=== PATIENT | female | born 1960 | race Caucasian/White ===

== ENCOUNTER 2016-05-29 15:17 | Emergency (ER) | payer MEDICARE, OTHER, MEDICAID ==
[2015-06-01 12:52] VITALS: BMI 22.8
[~2016-05-29 15:17] MED LIST: AMBIEN10 MG PO; ATIVAN1 MG PO; CIPRO500 MG PO; FLAGYL500 MG PO; GLUCOPHAGE500 MG PO; LISINOPRIL2.5 MG PO; METAMUCIL1042 GM PO; PROTONIX40 MG PO; PROZAC20 MG PO
== END 2016-05-29 22:45 | disposition home or self-care (01) ==
LOC: D.ER 15:17
DX: G43.909 Migraine, unspecified, not intractable, without status migrainosus (principal)

== ENCOUNTER 2016-05-31 11:55 | Emergency (ER) | payer MEDICARE, OTHER, MEDICAID ==
[2015-06-01 12:52] VITALS: BMI 22.8
== END 2016-05-31 14:00 | disposition home or self-care (01) ==
LOC: D.ER 11:55
DX: R51 Headache (principal)

== ENCOUNTER 2016-06-01 16:31 | Emergency (ER) | payer MEDICARE, OTHER, MEDICAID ==
[2015-06-01 12:52] VITALS: BMI 22.8
== END 2016-06-01 19:11 | disposition home or self-care (01) ==
LOC: D.ER 16:31
DX: R51 Headache (principal); F17.200 Nicotine dependence, unspecified, uncomplicated

== ENCOUNTER 2016-08-09 09:55 | Emergency (ER) | payer MEDICARE, OTHER, MEDICAID ==
[2015-06-01 12:52] VITALS: BMI 22.8
== END 2016-08-09 11:23 | disposition home or self-care (01) ==
LOC: D.ER 09:55
DX: G89.29 Other chronic pain (principal)

== ENCOUNTER 2016-08-11 15:51 | Emergency (ER) | payer MEDICARE, OTHER, MEDICAID ==
[2015-06-01 12:52] VITALS: BMI 22.8
== END 2016-08-11 18:32 | disposition home or self-care (01) ==
LOC: D.ER 15:51
DX: M25.562 Pain in left knee (principal); S89.92XA Unspecified injury of left lower leg, initial encounter; W01.0XXA Fall on same level from slipping, tripping and stumbling without subsequent striking against object, initial encounter; Y93.89 Activity, other specified; Y92.017 Garden or yard in single-family (private) house as the place of occurrence of the external cause; F17.200 Nicotine dependence, unspecified, uncomplicated

== ENCOUNTER 2016-10-27 16:27 | Emergency (ER) | payer MEDICARE, OTHER, MEDICAID ==
[2015-06-01 12:52] VITALS: BMI 22.8
== END 2016-10-27 18:25 | disposition home or self-care (01) ==
LOC: D.ER 16:27
DX: R51 Headache (principal); R11.10 Vomiting, unspecified; F41.9 Anxiety disorder, unspecified

== ENCOUNTER 2016-10-30 11:18 | Emergency (ER) | payer MEDICARE, OTHER, MEDICAID ==
[2015-06-01 12:52] VITALS: BMI 22.8
== END 2016-10-30 14:20 | disposition home or self-care (01) ==
LOC: D.ER 11:18
DX: M54.5 Low back pain (principal)

== ENCOUNTER 2016-11-07 21:58 | Emergency (ER) | payer MEDICARE, OTHER, MEDICAID ==
[2015-06-01 12:52] VITALS: BMI 22.8
== END 2016-11-07 23:00 | disposition home or self-care (01) ==
LOC: D.ER 21:58
DX: G43.909 Migraine, unspecified, not intractable, without status migrainosus (principal); F17.200 Nicotine dependence, unspecified, uncomplicated

== ENCOUNTER 2016-12-30 08:55 | Emergency (ER) | payer MEDICARE, OTHER, MEDICAID ==
[2015-06-01 12:52] VITALS: BMI 22.8
== END 2016-12-30 10:50 | disposition home or self-care (01) ==
LOC: D.ER 08:55
DX: R51 Headache (principal)

== ENCOUNTER 2017-01-02 02:21 | Emergency (ER) | payer MEDICARE, OTHER, MEDICAID ==
[2015-06-01 12:52] VITALS: BMI 22.8
== END 2017-01-02 03:55 | disposition home or self-care (01) ==
LOC: D.ER 02:21
DX: I10 Essential (primary) hypertension (principal); R51 Headache

== ENCOUNTER 2017-01-02 05:27 | Emergency (ER) | payer MEDICARE, OTHER, MEDICAID ==
[2015-06-01 12:52] VITALS: BMI 22.8
== END 2017-01-02 06:26 | disposition home or self-care (01) ==
LOC: D.ER 05:27
DX: G43.909 Migraine, unspecified, not intractable, without status migrainosus (principal); I10 Essential (primary) hypertension; F17.200 Nicotine dependence, unspecified, uncomplicated

== ENCOUNTER 2017-01-17 10:03 | Emergency (ER) | payer MEDICARE, OTHER, MEDICAID ==
[2015-06-01 12:52] VITALS: BMI 22.8
== END 2017-01-17 11:31 | disposition home or self-care (01) ==
LOC: D.ER 10:03
DX: S06.0X0A Concussion without loss of consciousness, initial encounter (principal); W22.03XA Walked into furniture, initial encounter; Y93.E9 Activity, other interior property and clothing maintenance; Y92.029 Unspecified place in mobile home as the place of occurrence of the external cause; F17.200 Nicotine dependence, unspecified, uncomplicated

== ENCOUNTER 2017-02-02 19:31 | Emergency (ER) | payer MEDICARE, OTHER, MEDICAID ==
[2015-06-01 12:52] VITALS: BMI 22.8
== END 2017-02-02 21:21 | disposition home or self-care (01) ==
LOC: D.ER 19:31
DX: R51 Headache (principal); I10 Essential (primary) hypertension

== ENCOUNTER → 2017-02-23 17:48 | Emergency (ER) | payer MEDICARE, OTHER, MEDICAID ==
[2015-06-01 12:52] VITALS: BMI 22.8
[2017-02-23 18:16] LABS: HEMATOCRIT 40.6 % (36.0-48.0); HEMOGLOBIN 13.3 g/dL (12-16); MCH 29.6 pg (26.0-34.0); MCHC 32.8 g/dL (31.0-37.0); MCV 90.2 fL (80.0-100.0); MEAN PLATELET VOLUME 9.3 fL (7.4-10.4); PLATELET COUNT 398 10x3/uL (130-400); RDW 13.6 % (11.5-14.5); WBC 11.7 10x3/uL (4.8-10.8)
[2017-02-23 18:31] LABS: ALBUMIN 3.6 g/dL (3.4-5.0); ALKALINE PHOSPHATASE 98 U/L (46-116); ALT (SGPT) 17 U/L (10-68); BILIRUBIN - TOTAL 0.19 mg/dL (0.2-1.3); CALC OSMOLALITY 282 mosm/kg (275-300); CALCIUM 8.8 mg/dL (8.5-10.1); CARBON DIOXIDE 26.6 mmol/L (21.0-32.0); CHLORIDE - SERUM 103 mmol/L (98-107); CREATININE - SERUM 0.9 mg/dL (0.6-1.3); GLUCOSE 159 mg/dL (74-106); POTASSIUM - SERUM 3.1 mmol/L (3.5-5.1); PROTEIN - SERUM 7.3 g/dL (6.4-8.2); SODIUM 141 mmol/L (136-145); UREA NITROGEN 9 mg/dL (7-18); eGFR NON AFRICAN AMERICAN 68 mL/min (90-120)
[2017-02-23 18:34] LABS: EOSINOPHILS 5 % (0-7); LYMPHOCYTES 63 % (15-50); MONOCYTES 5 % (2-11); NEUTROPHILS 27 % (40-80); PLATELET ESTIMATE NORMAL
[2017-02-23 18:44] LABS: CKMB 0.4 U/L (0.0-3.6); CREATINE KINASE 53 UL (21-215); TROPONIN-I < 0.017 ng/mL (0.000-0.060)
== END ==
LOC: D.ER 17:48
PROVIDERS: Emergency Medicine
DX: F41.9 Anxiety disorder, unspecified (principal); I10 Essential (primary) hypertension; E11.9 Type 2 diabetes mellitus without complications

== ENCOUNTER 2017-02-24 03:58 | Emergency (ER) | payer MEDICARE, OTHER, MEDICAID ==
[2015-06-01 12:52] VITALS: BMI 22.8
[2017-02-24 05:20] LABS: APPEARANCE CLEAR (CLEAR); BILIRUBIN NEGATIVE (NEGATIVE); COLOR STRAW (YELLOW); GLUCOSE NEGATIVE (NEGATIVE); KETONE NEGATIVE (NEGATIVE); NITRITE NEGATIVE (NEGATIVE); PROTEIN NEGATIVE (NEGATIVE); SPECIFIC GRAVITY 1.015 (1.005-1.020); UROBILINOGEN NORMAL (NORMAL)
[2017-02-24 05:25] LABS: UDS - AMPHET NEGATIVE QUAL (NEGATIVE); UDS - BARB NEGATIVE QUAL (NEGATIVE); UDS - BENZO POSITIVE QUAL (NEGATIVE); UDS - COCAINE NEGATIVE QUAL (NEGATIVE); UDS - OPIATE NEGATIVE QUAL (NEGATIVE); UDS - PCP NEGATIVE QUAL (NEGATIVE); UDS - THC NEGATIVE QUAL (NEGATIVE)
[2017-02-24 05:33] LABS: BACTERIA MODERATE /hpf (NONE SEEN); EPITHELIAL CELLS 0-5 /hpf (0-5); RED CELLS - URINE 0-5 /hpf (0-5)
[2017-02-24 05:37] LABS: BASOPHILS 0.4 % (0-2); HEMATOCRIT 40.2 % (36.0-48.0); HEMOGLOBIN 13.1 g/dL (12-16); IMMATURE GRANULOCYTES 0.2 % (0-5); LYMPHOCYTES 46.3 % (15-50); MCH 29.1 pg (26.0-34.0); MCHC 32.6 g/dL (31.0-37.0); MCV 89.3 fL (80.0-100.0); MEAN PLATELET VOLUME 9.3 fL (7.4-10.4); MONOCYTES 13.9 % (2-11); NEUTROPHILS 35.2 % (40-80); PLATELET COUNT 378 10x3/uL (130-400); RDW 13.6 % (11.5-14.5); WBC 9.1 10x3/uL (4.8-10.8)
[2017-02-24 05:51] LABS: ALBUMIN 3.4 g/dL (3.4-5.0); ANION GAP 11.5 mmol/L (8-16); BILIRUBIN - TOTAL 0.14 mg/dL (0.2-1.3); CALCIUM 9.5 mg/dL (8.5-10.1); CREATININE - SERUM 0.9 mg/dL (0.6-1.3); POTASSIUM - SERUM 3.5 mmol/L (3.5-5.1)
== END 2017-02-24 07:45 | disposition home or self-care (01) ==
LOC: D.ER 03:58
PROVIDERS: Family Medicine
DX: G43.909 Migraine, unspecified, not intractable, without status migrainosus (principal); R45.851 Suicidal ideations; N39.0 Urinary tract infection, site not specified; I10 Essential (primary) hypertension; E11.9 Type 2 diabetes mellitus without complications

== ENCOUNTER 2017-02-26 23:42 | Emergency (ER) | payer MEDICARE, OTHER, MEDICAID ==
[2015-06-01 12:52] VITALS: BMI 22.8
== END 2017-02-27 01:06 | disposition home or self-care (01) ==
LOC: D.ER 23:42
DX: S30.0XXA Contusion of lower back and pelvis, initial encounter (principal); W19.XXXA Unspecified fall, initial encounter; Y93.89 Activity, other specified; Y92.029 Unspecified place in mobile home as the place of occurrence of the external cause; M54.5 Low back pain; J44.9 Chronic obstructive pulmonary disease, unspecified; F17.200 Nicotine dependence, unspecified, uncomplicated

== ENCOUNTER 2017-06-14 22:00 | Emergency (ER) | payer MEDICARE, OTHER, MEDICAID ==
[2015-06-01 12:52] VITALS: BMI 22.8
== END 2017-06-14 23:41 | disposition home or self-care (01) ==
LOC: D.ER 22:00
DX: S70.01XA Contusion of right hip, initial encounter (principal); W17.89XA Other fall from one level to another, initial encounter; Y93.89 Activity, other specified; Y92.019 Unspecified place in single-family (private) house as the place of occurrence of the external cause; F17.200 Nicotine dependence, unspecified, uncomplicated; J44.9 Chronic obstructive pulmonary disease, unspecified

== ENCOUNTER 2017-06-19 14:41 | Emergency (ER) | payer MEDICARE, OTHER, MEDICAID ==
[2015-06-01 12:52] VITALS: BMI 22.8
== END 2017-06-19 16:50 | disposition home or self-care (01) ==
LOC: D.ER 14:41
DX: G43.909 Migraine, unspecified, not intractable, without status migrainosus (principal); F17.200 Nicotine dependence, unspecified, uncomplicated; J44.9 Chronic obstructive pulmonary disease, unspecified

== ENCOUNTER 2017-06-21 12:12 | Emergency (ER) | payer MEDICARE, OTHER, MEDICAID ==
[2015-06-01 12:52] VITALS: BMI 22.8
== END 2017-06-21 14:23 | disposition home or self-care (01) ==
LOC: D.ER 12:12
DX: R51 Headache (principal)

== ENCOUNTER 2017-06-23 20:13 | Emergency (ER) | payer MEDICARE, OTHER, MEDICAID ==
[2015-06-01 12:52] VITALS: BMI 22.8
[2017-06-23 21:02] LABS: BASOPHILS 0.4 % (0-2); EOSINOPHILS 5.5 % (0-7); HEMATOCRIT 37.5 % (36.0-48.0); LYMPHOCYTES 50.8 % (15-50); MCH 28.7 pg (26.0-34.0); MCV 89.7 fL (80.0-100.0); MEAN PLATELET VOLUME 9.4 fL (7.4-10.4); MONOCYTES 11.5 % (2-11); NEUTROPHILS 31.8 % (40-80); RBC 4.18 10x6/uL (4.00-5.40); RDW 13.9 % (11.5-14.5); WBC 7.1 10x3/uL (4.8-10.8)
[2017-06-23 21:04] LABS: PLATELET COUNT 285 10x3/uL (130-400)
[2017-06-23 21:20] LABS: ALBUMIN 3.1 g/dL (3.4-5.0); ALKALINE PHOSPHATASE 81 U/L (46-116); ALT (SGPT) 25 U/L (10-68); BILIRUBIN - TOTAL 0.18 mg/dL (0.2-1.3); CALC OSMOLALITY 284 mosm/kg (275-300); CALCIUM 8.4 mg/dL (8.5-10.1); CARBON DIOXIDE 27.9 mmol/L (21.0-32.0); CHLORIDE - SERUM 106 mmol/L (98-107); CREATININE - SERUM 0.9 mg/dL (0.6-1.3); GLUCOSE 112 mg/dL (74-106); POTASSIUM - SERUM 3.5 mmol/L (3.5-5.1); PROTEIN - SERUM 6.9 g/dL (6.4-8.2); SODIUM 143 mmol/L (136-145); UREA NITROGEN 11 mg/dL (7-18); eGFR NON AFRICAN AMERICAN 68 mL/min (90-120)
[2017-06-23 21:32] LABS: CKMB 3.6 U/L (0.0-3.6); CREATINE KINASE 742 UL (21-215)
[2017-06-23 21:33] LABS: TROPONIN-I < 0.017 ng/mL (0.000-0.060)
== END 2017-06-23 23:00 | disposition home or self-care (01) ==
LOC: D.ER 20:13
PROVIDERS: Family Medicine
DX: F31.9 Bipolar disorder, unspecified (principal); J44.9 Chronic obstructive pulmonary disease, unspecified; F17.200 Nicotine dependence, unspecified, uncomplicated

== ENCOUNTER 2017-07-25 11:31 | Emergency (ER) | payer MEDICARE, OTHER, MEDICAID ==
[2015-06-01 12:52] VITALS: BMI 22.8
== END 2017-07-25 13:16 | disposition home or self-care (01) ==
LOC: D.ER 11:31
DX: G43.909 Migraine, unspecified, not intractable, without status migrainosus (principal); M25.571 Pain in right ankle and joints of right foot; M25.572 Pain in left ankle and joints of left foot; J44.9 Chronic obstructive pulmonary disease, unspecified

== ENCOUNTER 2017-07-26 13:58 | Emergency (ER) | payer MEDICARE, OTHER, MEDICAID ==
[2015-06-01 12:52] VITALS: BMI 22.8
== END 2017-07-26 14:53 | disposition home or self-care (01) ==
LOC: D.ER 13:58
DX: M10.071 Idiopathic gout, right ankle and foot (principal); J44.9 Chronic obstructive pulmonary disease, unspecified

== ENCOUNTER 2017-07-27 14:37 | Emergency (ER) | payer MEDICARE, OTHER, MEDICAID ==
[2015-06-01 12:52] VITALS: BMI 22.8
== END 2017-07-27 15:50 | disposition home or self-care (01) ==
LOC: D.ER 14:37
DX: R51 Headache (principal); Z76.5 Malingerer [conscious simulation]; J44.9 Chronic obstructive pulmonary disease, unspecified

== ENCOUNTER 2017-09-20 14:03 | Emergency (ER) | payer MEDICARE, OTHER, MEDICAID ==
[2015-06-01 12:52] VITALS: BMI 22.8
[2017-09-20 15:07] LABS: BASOPHILS 0.3 % (0-2); EOSINOPHILS 2.5 % (0-7); HEMATOCRIT 41.1 % (36.0-48.0); HEMOGLOBIN 13.9 g/dL (12-16); IMMATURE GRANULOCYTES 0.4 % (0-5); LYMPHOCYTES 36.6 % (15-50); MCH 30.1 pg (26.0-34.0); MCHC 33.8 g/dL (31.0-37.0); MEAN PLATELET VOLUME 9.9 fL (7.4-10.4); NEUTROPHILS 48.2 % (40-80); PLATELET COUNT 270 10x3/uL (130-400); RBC 4.62 10x6/uL (4.00-5.40); RDW 13.7 % (11.5-14.5); WBC 10.8 10x3/uL (4.8-10.8)
[2017-09-20 15:22] LABS: ALBUMIN 3.9 g/dL (3.4-5.0); ANION GAP 11.1 mmol/L (8-16); BILIRUBIN - TOTAL 0.4 mg/dL (0.2-1.3); CALCIUM 9.4 mg/dL (8.5-10.1); CARBON DIOXIDE 26.3 mmol/L (21.0-32.0); CREATININE - SERUM 0.9 mg/dL (0.6-1.3); POTASSIUM - SERUM 3.4 mmol/L (3.5-5.1); PROTEIN - SERUM 7.6 g/dL (6.4-8.2)
[2017-09-20 16:33] LABS: UDS - AMPHET NEGATIVE QUAL (NEGATIVE); UDS - BARB NEGATIVE QUAL (NEGATIVE); UDS - BENZO NEGATIVE QUAL (NEGATIVE); UDS - COCAINE NEGATIVE QUAL (NEGATIVE); UDS - OPIATE NEGATIVE QUAL (NEGATIVE); UDS - PCP NEGATIVE QUAL (NEGATIVE); UDS - THC NEGATIVE QUAL (NEGATIVE)
[2017-09-20 16:34] LABS: APPEARANCE CLEAR (CLEAR); COLOR YELLOW (YELLOW); GLUCOSE NEGATIVE (NEGATIVE); KETONE NEGATIVE (NEGATIVE); NITRITE NEGATIVE (NEGATIVE); PROTEIN TRACE mg/dL (NEGATIVE); SPECIFIC GRAVITY 1.015 (1.005-1.020)
[2017-09-20 16:35] LABS: BILIRUBIN NEGATIVE (NEGATIVE); UROBILINOGEN NORMAL (NORMAL)
[2017-09-20 16:38] LABS: BACTERIA FEW /hpf (NONE SEEN); WHITE CELLS - URINE OCC /hpf (0-5)
== END 2017-09-21 05:58 | disposition home or self-care (01) ==
LOC: D.ER 14:03
PROVIDERS: Family Medicine
DX: F23 Brief psychotic disorder (principal); E11.9 Type 2 diabetes mellitus without complications; I10 Essential (primary) hypertension; F17.200 Nicotine dependence, unspecified, uncomplicated

== ENCOUNTER 2017-10-19 10:38 | Inpatient (IN) | payer MEDICARE, OTHER, MEDICAID ==
[2015-06-01 12:52] VITALS: Ht 162.6 cm; Wt 65.9 kg
[~2017-10-19] VITALS: Ht 162.6 cm; Wt 65.9 kg
[2017-10-19 11:30] LABS: BASOPHILS 0.2 % (0-2); EOSINOPHILS 3.2 % (0-7); HEMATOCRIT 35.7 % (36.0-48.0); HEMOGLOBIN 11.5 g/dL (12-16); IMMATURE GRANULOCYTES 0.2 % (0-5); LYMPHOCYTES 45.5 % (15-50); MCHC 32.2 g/dL (31.0-37.0); MCV 90.2 fL (80.0-100.0); MEAN PLATELET VOLUME 8.5 fL (7.4-10.4); MONOCYTES 10.9 % (2-11); RBC 3.96 10x6/uL (4.00-5.40); RDW 14.3 % (11.5-14.5); WBC 10.4 10x3/uL (4.8-10.8)
[2017-10-19 11:50] LABS: PLATELET COUNT 436 10x3/uL (130-400)
[2017-10-19 11:50] LABS: ANION GAP 13.5 mmol/L (8-16); BILIRUBIN - TOTAL 0.29 mg/dL (0.2-1.3); CALCIUM 9.1 mg/dL (8.5-10.1); CARBON DIOXIDE 25.4 mmol/L (21.0-32.0); CREATININE - SERUM 0.9 mg/dL (0.6-1.3); POTASSIUM - SERUM 3.9 mmol/L (3.5-5.1)
[2017-10-19 11:59] LABS: THYROID STIMULATING HORMONE 0.72 uIU/mL (0.36-3.74)
[2017-10-19 14:14] LABS: APPEARANCE CLEAR (CLEAR); BILIRUBIN NEGATIVE (NEGATIVE); COLOR YELLOW (YELLOW); GLUCOSE NEGATIVE (NEGATIVE); KETONE NEGATIVE (NEGATIVE); NITRITE NEGATIVE (NEGATIVE); PROTEIN NEGATIVE (NEGATIVE); UROBILINOGEN NORMAL (NORMAL)
[2017-10-19 14:16] LABS: WHITE CELLS - URINE 0-5 /hpf (0-5)
[2017-10-19 14:17] LABS: BACTERIA FEW /hpf (NONE SEEN); RED CELLS - URINE RARE /hpf (0-5)
[2017-10-19 14:18] LABS: EPITHELIAL CELLS 0-5 /hpf (0-5)
[2017-10-19 14:21] LABS: UDS - AMPHET NEGATIVE QUAL (NEGATIVE); UDS - BARB NEGATIVE QUAL (NEGATIVE); UDS - BENZO POSITIVE QUAL (NEGATIVE); UDS - COCAINE NEGATIVE QUAL (NEGATIVE); UDS - OPIATE NEGATIVE QUAL (NEGATIVE); UDS - PCP NEGATIVE QUAL (NEGATIVE); UDS - THC NEGATIVE QUAL (NEGATIVE)
[2017-10-19 17:22] VITALS: BP 149/86
[2017-10-19 19:55] VITALS: BP 132/84
[2017-10-19 21:00] VITALS: BP 137/82
[2017-10-20] VITALS: BP 130/80
[2017-10-20 01:00] VITALS: BP 132/80
[2017-10-20 02:00] VITALS: BP 136/84
[2017-10-20 04:53] VITALS: BP 132/79
[2017-10-20 05:36] VITALS: BP 142/84
[2017-10-20 07:16] VITALS: BP 159/90
[2017-10-20 09:30] LABS: BASOPHILS 0.2 % (0-2); EOSINOPHILS 4.4 % (0-7); HEMATOCRIT 38.9 % (36.0-48.0); HEMOGLOBIN 12.5 g/dL (12-16); IMMATURE GRANULOCYTES 0.2 % (0-5); LYMPHOCYTES 40.1 % (15-50); MCH 29.1 pg (26.0-34.0); MCHC 32.1 g/dL (31.0-37.0); MCV 90.5 fL (80.0-100.0); MEAN PLATELET VOLUME 8.5 fL (7.4-10.4); MONOCYTES 11.9 % (2-11); NEUTROPHILS 43.2 % (40-80); PLATELET COUNT 470 10x3/uL (130-400); RDW 14.4 % (11.5-14.5); WBC 9.7 10x3/uL (4.8-10.8)
[2017-10-20 09:47] LABS: ALKALINE PHOSPHATASE 93 U/L (46-116); ALT (SGPT) 18 U/L (10-68); BILIRUBIN - TOTAL 0.31 mg/dL (0.2-1.3); CALC OSMOLALITY 290 mosm/kg (275-300); CALCIUM 8.6 mg/dL (8.5-10.1); CARBON DIOXIDE 30.1 mmol/L (21.0-32.0); CHLORIDE - SERUM 110 mmol/L (98-107); CREATININE - SERUM 0.8 mg/dL (0.6-1.3); GLUCOSE 98 mg/dL (74-106); POTASSIUM - SERUM 4.1 mmol/L (3.5-5.1); SODIUM 147 mmol/L (136-145); UREA NITROGEN 10 mg/dL (7-18); eGFR NON AFRICAN AMERICAN 78 mL/min (90-120)
[2017-10-20] MEDS ORDERED: TESSALON PERLE100 MG PO (10:07)
[2017-10-20] MEDS ORDERED: CIPRO500 MG PO (10:07)
[2017-10-20] MEDS ORDERED: MUCINEX600 MG PO (10:07)
== END 2017-10-20 11:00 | disposition home or self-care (01) | DRG 918 ==
LOC: D.ER 10:38 → D.EDHOLD 12:23
PROVIDERS: Emergency Medicine; Family Medicine
DX: T42.4X1A Poisoning by benzodiazepines, accidental (unintentional), initial encounter (principal); Y92.481 Parking lot as the place of occurrence of the external cause; E11.65 Type 2 diabetes mellitus with hyperglycemia; F41.9 Anxiety disorder, unspecified; F31.9 Bipolar disorder, unspecified; I25.10 Atherosclerotic heart disease of native coronary artery without angina pectoris

== ENCOUNTER 2017-10-27 14:46 | Emergency (ER) | payer MEDICARE, OTHER, MEDICAID ==
[~2017-10-27] VITALS: Ht 162.6 cm; Wt 59.1 kg
[~2017-10-27 14:46] MED LIST changes: +MUCINEX600 MG PO; +TESSALON PERLE100 MG PO
[2017-10-27 15:03] VITALS: Ht 162.6 cm; Wt 59.1 kg
[2017-10-27] MEDS ORDERED: HYDROCODON-ACE1 EAC7 PO (18:36)
[2017-10-27 19:14] VITALS: BP 169/103
== END 2017-10-27 18:58 | disposition home or self-care (01) ==
LOC: D.ER 14:46
DX: S60.212A Contusion of left wrist, initial encounter (principal); W01.0XXA Fall on same level from slipping, tripping and stumbling without subsequent striking against object, initial encounter; Y93.89 Activity, other specified; Y92.019 Unspecified place in single-family (private) house as the place of occurrence of the external cause; E11.9 Type 2 diabetes mellitus without complications

== ENCOUNTER 2018-03-26 13:22 | Inpatient (IN) | payer MEDICARE, OTHER, MEDICAID ==
[2018-03-26] VITALS (9 sets, daily range): BP systolic 102–116; BP diastolic 55–87; BMI 21.5
[~2018-03-26] VITALS: Ht 162.6 cm; Wt 56.7 kg
--- NOTE | ~2018-03-26 | MORECARE ---
CASE MANAGEMENT DISCHARGE SUMMARY PATIENT: WESLEY ORTEZ UNIT: [id number] ADM DATE: 03/26/18 AGE: 57 : 56 SEX: F ROOM/BED: D.2217 AUTHOR: MARK BACON PHYSICIAN: REFERRING PHYSICIAN: NATHANIEL MCCONNELL MD DATE OF SERVICE: 03/27/18 Discharge Plan Patient Name: WESLEY ORTEZ Facility: [facility]:[place] : 1960 Planned Disposition: Home with Home Health Anticipated Discharge Date: Discharge Date: Expected LOS: Initial Reviewer: [email or web address] Initial Review Date: 03/26/2018 Generated: 03/27/18 2:53 pm Comments DCP- Discharge Planning Updated by [email or web address]: Bobbi Lynne on 03/27/18 12:[address] Patient Name: WESLEY ORTEZ Admission Status: ER Accout number: [id number] Admission Date: 03-26-2018 : 1960 Admission Diagnosis: Attending: NATHANIEL MCCONNELL Current LOS: 1 Anticipated DC Date: Planned Disposition: Home with Home Health Primary Insurance: MEDICARE A & B Discharge Planning Comments: CM met with patient to assess discharge planning needs. Patient lives independently in a camper where she plans to return at discharge. She stated that her landlady who is her friend (Charline) will be the one to drive her home. She stated that she also will help her if she needs it. She does not use any home health, but thought it would be good when she is discharged. EULOGIO with [facility] . I will send referral over. She stated that her home is a safe place to return. CM will continue to follow and assist with DC planning Loan Originator: Bobbi Lynne DCPIA - Discharge Planning Initial Assessment Updated by [email or web address]: Bobbi Lynne on 03/27/18 1:45 pm * Is the patient Alert and Oriented? Yes * How many steps to enter\exit or inside your home? * PCP Melvin * Pharmacy [facility] * Preadmission Environment Home Alone * ADLs Independent * Equipment None * List name and contact numbers for known caregivers / representatives who currently or will assist patient after discharge: Charline (friend) [phone] * Verbal permission to speak to the caregivers and representatives has been obtained from the patient. N/A * Community resources currently utilized None * Additional services required to return to the preadmission environment? Yes * Can the patient safely return to the preadmission environment? Yes * Has this patient been hospitalized within the prior 30 days at any hospital? No External Providers External Provider: [facility] Next Contact Date: Service Request Date: Service Type: Resolution: Reviewer: Comments: Patient Name: WESLEY ORTEZ Page [phone] at 1353 All edits/amendments must be made on the electronic document DICTATION DATE: 03/27/18 135 LEAD NITRATE PROCESSOR: ABI 03/27/18 1352 RPT#: [id number] DC DATE: STATUS: ADM IN [facility] [address] [place] [address] END OF REPORT
--- NOTE | ~2018-03-26 | MORECARE ---
CASE MANAGEMENT DISCHARGE SUMMARY PATIENT: WESLYE ORTEZ UNIT: [id number] ADM DATE: 03/26/18 AGE: 57 : 56 SEX: F ROOM/BED: D.2212 AUTHOR: MARK BACON PHYSICIAN: REFERRING PHYSICIAN: NATHANIEL MCCONNELL MD DATE OF SERVICE: 04/07/18 Discharge Plan Patient Name: WESLEY ORTEZ Facility: [facility]:[place] : 1960 Planned Disposition: Home with Home Health Anticipated Discharge Date: Discharge Date: Expected LOS: Initial Reviewer: [email or web address] Initial Review Date: 03/26/2018 Generated: 04/07/18 9:49 pm Comments DCP- Discharge Planning Updated by [email or web address]: Nicolette Chavira on 04/07/18 7:[address] PHYSICAL THERAPY EVAL COMPLETED. AWAITING OT EVAL. AWAITING REVIEW BY REHAB SCREENER. REHAB NOTE 04/05 SO SCREENER IS COGNIZANT OF REFERRAL. HOPEFULLY WILL REASSESS ON SUNDAY. DCP- Discharge Planning Updated by [email or web address]: Bobbi Lynne on 03/27/18 12:[address] Patient Name: WESLEY ORTEZ Admission Status: ER Accout number: [id number] Admission Date: 03-26-2018 : 1960 Admission Diagnosis: Attending: NATHANIEL MCCONNELL Current LOS: 1 Anticipated DC Date: Planned Disposition: Home with Home Health Primary Insurance: MEDICARE A & B Discharge Planning Comments: CM met with patient to assess discharge planning needs. Patient lives independently in a camper where she plans to return at discharge. She stated that her landlady who is her friend (Charline) will be the one to drive her home. She stated that she also will help her if she needs it. She does not use any home health, but thought it would be good when she is discharged. EULOGIO with [facility] . I will send referral over. She stated that her home is a safe place to return. CM will continue to follow and assist with DC planning Industrial Economist: Bobbi Lynne DCPIA - Discharge Planning Initial Assessment Updated by [email or web address]: Bobbi Lynne on 03/27/18 1:45 pm * Is the patient Alert and Oriented? Yes * How many steps to enter\exit or inside your home? * PCP [facility] * Pharmacy [facility] * Preadmission Environment Home Alone * ADLs Independent * Equipment None * List name and contact numbers for known caregivers / representatives who currently or will assist patient after discharge: Charline (friend) [phone] * Verbal permission to speak to the caregivers and representatives has been obtained from the patient. N/A * Community resources currently utilized None * Additional services required to return to the preadmission environment? Yes * Can the patient safely return to the preadmission environment? Yes * Has this patient been hospitalized within the prior 30 days at any hospital? No Last DP export: 03/27/18 12:53 p Patient Name: WESLEY ORTEZ Page 77054 at 2050 All edits/amendments must be made on the electronic document DICTATION DATE: 04/07/182048 RUSSIAN RUBBER: ABI 04/07/182048 RPT#: [id number] DC DATE: STATUS: ADM IN [facility] [address] [place] [address] END OF REPORT
--- NOTE | ~2018-03-26 | MORECARE ---
CASE MANAGEMENT DISCHARGE SUMMARY PATIENT: WESLEY ORTEZ UNIT: [id number] ADM DATE: 03/26/18 AGE: 57 : 56 SEX: F ROOM/BED: D.2217 AUTHOR: MARK BACON PHYSICIAN: REFERRING PHYSICIAN: NATHANIEL MCCONNELL MD DATE OF SERVICE: 04/09/18 Discharge Plan Patient Name: WESLEY ORTEZ Facility: [facility]:[place] : 1960 Planned Disposition: Home with Home Health Anticipated Discharge Date: Discharge Date: Expected LOS: Initial Reviewer: [email or web address] Initial Review Date: 03/26/2018 Generated: 04/09/18 12:25 pm Comments DCP- Discharge Planning Updated by [email or web address]: Bobbi Lynne on 04/09/18 10:[address] IMM SERVED AND EXPLAINED, EVELYNN WILL BE DISCHARING TO IN PATIENT REHAB TODAY. DCP- Discharge Planning Updated by [email or web address]: Nicolette Chavira on 04/07/18 7:[address] PHYSICAL THERAPY EVAL COMPLETED. AWAITING OT EVAL. AWAITING REVIEW BY REHAB SCREENER. REHAB NOTE 04/05 SO SCREENER IS COGNIZANT OF REFERRAL. HOPEFULLY WILL REASSESS ON SUNDAY. DCP- Discharge Planning Updated by [email or web address]: Bobbi Lynne on 03/27/18 12:[address] Patient Name: WESLEY ORTEZ Admission Status: ER Accout number: [id number] Admission Date: 03-26-2018 : 1960 Admission Diagnosis: Attending: NATHANIEL MCCONNELL Current LOS: 1 Anticipated DC Date: Planned Disposition: Home with Home Health Primary Insurance: MEDICARE A & B Discharge Planning Comments: CM met with patient to assess discharge planning needs. Patient lives independently in a camper where she plans to return at discharge. She stated that her landlady who is her friend (Charline) will be the one to drive her home. She stated that she also will help her if she needs it. She does not use any home health, but thought it would be good when she is discharged. EULOGIO with [facility] . I will send referral over. She stated that her home is a safe place to return. CM will continue to follow and assist with DC planning Icer Air Conditioning: Bobbi Lynne DCPIA - Discharge Planning Initial Assessment Updated by [email or web address]: Bobbi Lynne on 03/27/18 1:45 pm * Is the patient Alert and Oriented? Yes * How many steps to enter\exit or inside your home? * PCP [facility] * Pharmacy [facility] * Preadmission Environment Home Alone * ADLs Independent * Equipment None * List name and contact numbers for known caregivers / representatives who currently or will assist patient after discharge: Charline (friend) [phone] * Verbal permission to speak to the caregivers and representatives has been obtained from the patient. N/A * Community resources currently utilized None * Additional services required to return to the preadmission environment? Yes * Can the patient safely return to the preadmission environment? Yes * Has this patient been hospitalized within the prior 30 days at any hospital? No Coverage Notice Reviewer: [email or web address] - Bobbi Lynne Notice Issued Date-Time: 04/09/2018 11:10 Notice Type: IM Discharge Notice Notice Delivered To: Patient Relationship to Patient: Auto Service Advisor Name: Delivery Method: HAND - Hand Delivered Desire Days: Prior Verbal Notification: Recipient Understood Notice: Yes Recipient Signature: Yes Med Rec Note Co-signed by Attending: Coverage Notice Comment: Last DP export: 04/07/18 7:50 Patient Name: WESLEY ORTEZ Page 47726 at 1125 All edits/amendments must be made on the electronic document DICTATION DATE: 04/09/18 112 ROLL SETTER: ABI 04/09/18 1125 RPT#: [id number] DC DATE: STATUS: ADM IN [facility] [address] [place] [address] END OF REPORT
--- NOTE | ~2018-03-26 | EC ---
PATIENT:WESLEY ORTEZ DATE OF SERVICE: 03/26/18 SEX: F MEDICAL RECORD: [id number] DATE OF : 56 LOCATION:D.[facility] [address] AGE OF PATIENT: 57 ADMISSION DATE: 03/26/18 REFERRING PHYSICIAN: INTERPRETING PHYSICIAN: NOLVIA IRBY MD ECHOCARDIOGRAM REPORT ECHO CHARGES 4 ECHO COMPLETE Date: 03/31/18 CLINICAL DIAGNOSIS: PA PRESSURE, LV FUNCTION ECHOCARDIOGRAPHIC MEASUREMENTS (adult normal given) AC root (d.<3.7cm) 3.2 cm LV Septum d (<1.2 cm> 1.3 cm Valve Excursion 1.8 cm LV Septum (systole) 1.3 cm Left Atria (s.<4.0cm> 3.4 cm LVPW d(<1.2cm) 0.8 cm RV (d.<2.3cm) 2.8 cm LVPW (sytole) 1.4 cm LV diastole(<5.6CM) 4.4 cm MV E-F(>70mm/sec) cm LV systole 4.0 cm LVOT Diameter 1.9 cm MV exc.(>10mm) cm Est.ejection fraction (50-75%) % DOPPLER: LVIT cm/sec A 28 cm/sec E 92 cm/sec LA cm/sec RVSP 14.6 mmHg LVOT 99 cm/sec AOP1/2T m/s Asc. Ao 137 cm/sec RVOT 81 cm/sec RA cm/sec PA 91 cm/sec AV Gradient Peak 7.5 mmHg AV Mean 3.6 mmHg AV Area 2.1 cm MV Gradient Peak 3.6 mmHg MV Mean 1.8 mmHg MV Area cm COMMENTS: Yard Hostler: Jc MOREIRA Customer Relations Assistant: 1 Dr. Irby TAPE# PACS Pericardial Effusion N DATE OF SERVICE: 03/31/2018 PROCEDURE: Echocardiogram. FINDINGS: 1. Left ventricular chamber size is within normal limits. Left ventricular systolic function is normal. Overall ejection fraction estimated at 60%. 2. Left atrium, right atrium, and right ventricle chamber sizes are within normal limits. 3. Valvular structures have normal structure and motion. ECHOCARDIOGRAM REPORT [id number] WESLEY ORTEZ 4. Doppler interrogation reveals no significant valvular insufficiency or stenosis and pulmonary systolic pressure is normal estimated 15 mmHg. 5. No evidence of pericardial effusion or left ventricular thrombus. TRANSINT:[id number] Voice Confirmation ID: [id number] DOCUMENT ID: [id number] NOLVIA IRBY MD at 1228 CC: [id number] DICTATION DATE: 04/01/18 1005 STUDIO TECHNICIAN: 04/01/18 1131 ADM IN [facility] [address] [place] [address]
[~2018-03-26 13:22] MED LIST changes: +HYDROCODON-ACE1 EAC7 PO
[2018-03-26 15:04] LABS: APPEARANCE CLEAR (CLEAR); COLOR YELLOW (YELLOW)
[2018-03-26 15:05] LABS: BILIRUBIN NEGATIVE (NEGATIVE); GLUCOSE NEGATIVE (NEGATIVE); KETONE NEGATIVE (NEGATIVE); NITRITE NEGATIVE (NEGATIVE); PROTEIN TRACE mg/dL (NEGATIVE); SPECIFIC GRAVITY 1.015 (1.005-1.020); UROBILINOGEN NORMAL (NORMAL)
[2018-03-26 15:06] LABS: BASOPHILS 0.3 % (0-2); EOSINOPHILS 2.4 % (0-7); HEMATOCRIT 41.1 % (36.0-48.0); HEMOGLOBIN 13.3 g/dL (12-16); IMMATURE GRANULOCYTES 0.3 % (0-5); LYMPHOCYTES 38.2 % (15-50); MCH 28.7 pg (26.0-34.0); MCHC 32.4 g/dL (31.0-37.0); MCV 88.6 fL (80.0-100.0); MEAN PLATELET VOLUME 9.5 fL (7.4-10.4); MONOCYTES 9.5 % (2-11); NEUTROPHILS 49.3 % (40-80); RBC 4.64 10x6/uL (4.00-5.40); RDW 13.7 % (11.5-14.5); WBC 11.7 10x3/uL (4.8-10.8)
[2018-03-26 15:06] LABS: BACTERIA MODERATE /hpf (NONE SEEN); EPITHELIAL CELLS 0-5 /hpf (0-5); RED CELLS - URINE 0-5 /hpf (0-5)
[2018-03-26 15:07] LABS: PLATELET COUNT 590 10x3/uL (130-400)
[2018-03-26 15:21] LABS: ALKALINE PHOSPHATASE 68 U/L (46-116); ALT (SGPT) 5 U/L (10-68); CALC OSMOLALITY 281 mosm/kg (275-300); CALCIUM 8.9 mg/dL (8.5-10.1); CARBON DIOXIDE 29.2 mmol/L (21.0-32.0); CHLORIDE - SERUM 102 mmol/L (98-107); CREATININE - SERUM 0.8 mg/dL (0.6-1.3); GLUCOSE 142 mg/dL (74-106); POTASSIUM - SERUM 4.2 mmol/L (3.5-5.1); PROTEIN - SERUM 7.4 g/dL (6.4-8.2); SODIUM 141 mmol/L (136-145); UREA NITROGEN 10 mg/dL (7-18); eGFR NON AFRICAN AMERICAN 78 mL/min (90-120)
[2018-03-26 15:26] LABS: LIPASE 159 U/L (73-393); MAGNESIUM - SERUM 1.5 mg/dL (1.8-2.4); PRO BNP 85 pg/mL (0-125); TROPONIN-I < 0.017 ng/mL (0.000-0.060)
[2018-03-26 16:22] LABS: APTT 31.4 SECONDS (22.8-39.4); INR 1.01 (0.85-1.17); PROTIME 12.8 SECONDS (11.6-15.0)
[2018-03-26] MEDS ORDERED: TRAZODONE HCL150 MG PO (21:53)
[2018-03-26] MEDS ORDERED: REMERON15 MG PO (21:53)
[2018-03-26] MEDS ORDERED: ATIVAN1 MG PO (21:54)
[2018-03-26] MEDS ORDERED: HYDROCODON-ACE1 EAC7 PO (21:55)
[2018-03-27 05:06] LABS: BASOPHILS 0.4 % (0-2); EOSINOPHILS 3.2 % (0-7); HEMATOCRIT 40.3 % (36.0-48.0); HEMOGLOBIN 12.9 g/dL (12-16); IMMATURE GRANULOCYTES 0.2 % (0-5); LYMPHOCYTES 35.3 % (15-50); MCH 28.5 pg (26.0-34.0); MEAN PLATELET VOLUME 9.2 fL (7.4-10.4); MONOCYTES 10.6 % (2-11); NEUTROPHILS 50.3 % (40-80); PLATELET COUNT 568 10x3/uL (130-400); RBC 4.53 10x6/uL (4.00-5.40); RDW 13.7 % (11.5-14.5); WBC 10.4 10x3/uL (4.8-10.8)
[2018-03-27 05:19] LABS: INR 1.01 (0.85-1.17); PROTIME 12.8 SECONDS (11.6-15.0)
[2018-03-27 05:21] LABS: CALC OSMOLALITY 280 mosm/kg (275-300); CALCIUM 8.3 mg/dL (8.5-10.1); CARBON DIOXIDE 29.5 mmol/L (21.0-32.0); CHLORIDE - SERUM 102 mmol/L (98-107); CREATININE - SERUM 0.8 mg/dL (0.6-1.3); GLUCOSE 137 mg/dL (74-106); SODIUM 141 mmol/L (136-145); UREA NITROGEN 8 mg/dL (7-18); eGFR NON AFRICAN AMERICAN 78 mL/min (90-120)
[2018-03-27 08:35] VITALS: BP 113/78
[2018-03-27 10:38] VITALS: Ht 162.6 cm; Wt 56.7 kg
[2018-03-27 12:37] VITALS: BP 106/74
[2018-03-27 14:50] LABS: PROTEIN - BODY FLUID 5.5 G/DL
[2018-03-27 18:00] LABS: NEUT - BF 5 %
[2018-03-27 18:01] LABS: EOS BF 3 %; MACROPHAGES BF 13 %; MESOTHELIALS BF 2 %
[2018-03-27 20:00] VITALS: BP 1428/88
[2018-03-28 04:49] VITALS: BP 129/85
[2018-03-28 05:23] LABS: BASOPHILS 0.2 % (0-2); EOSINOPHILS 2.8 % (0-7); HEMATOCRIT 40.1 % (36.0-48.0); HEMOGLOBIN 13.1 g/dL (12-16); IMMATURE GRANULOCYTES 0.3 % (0-5); MCH 28.7 pg (26.0-34.0); MCHC 32.7 g/dL (31.0-37.0); MCV 87.9 fL (80.0-100.0); MEAN PLATELET VOLUME 9.3 fL (7.4-10.4); MONOCYTES 13.4 % (2-11); NEUTROPHILS 49.3 % (40-80); PLATELET COUNT 609 10x3/uL (130-400); RBC 4.56 10x6/uL (4.00-5.40); RDW 13.4 % (11.5-14.5); WBC 11.7 10x3/uL (4.8-10.8)
[2018-03-28 05:49] LABS: CALC OSMOLALITY 271 mosm/kg (275-300); CALCIUM 8.4 mg/dL (8.5-10.1); CARBON DIOXIDE 28.9 mmol/L (21.0-32.0); CHLORIDE - SERUM 100 mmol/L (98-107); CREATININE - SERUM 0.7 mg/dL (0.6-1.3); GLUCOSE 140 mg/dL (74-106); POTASSIUM - SERUM 3.7 mmol/L (3.5-5.1); SODIUM 136 mmol/L (136-145); UREA NITROGEN 7 mg/dL (7-18); eGFR NON AFRICAN AMERICAN > 90 mL/min (90-120)
[2018-03-28 05:56] LABS: MAGNESIUM - SERUM 1.9 mg/dL (1.8-2.4)
[2018-03-28 08:33] VITALS: BP 98/57
[2018-03-28 12:00] VITALS: BP 117/69
[2018-03-28 16:20] VITALS: BP 116/72
[2018-03-28 20:00] VITALS: BP 122/76
[2018-03-29] VITALS: BP 130/78
[2018-03-29 04:00] VITALS: BP 119/71
[2018-03-29 06:12] LABS: BASOPHILS 0.2 % (0-2); EOSINOPHILS 2.6 % (0-7); HEMATOCRIT 38.4 % (36.0-48.0); HEMOGLOBIN 12.2 g/dL (12-16); IMMATURE GRANULOCYTES 0.2 % (0-5); LYMPHOCYTES 33.4 % (15-50); MCH 28.2 pg (26.0-34.0); MCHC 31.8 g/dL (31.0-37.0); MCV 88.7 fL (80.0-100.0); MEAN PLATELET VOLUME 9.3 fL (7.4-10.4); MONOCYTES 11.2 % (2-11); NEUTROPHILS 52.4 % (40-80); PLATELET COUNT 571 10x3/uL (130-400); RBC 4.33 10x6/uL (4.00-5.40); RDW 13.5 % (11.5-14.5); WBC 11.4 10x3/uL (4.8-10.8)
[2018-03-29 06:26] LABS: CALC OSMOLALITY 286 mosm/kg (275-300); CALCIUM 8.2 mg/dL (8.5-10.1); CARBON DIOXIDE 27.3 mmol/L (21.0-32.0); CHLORIDE - SERUM 103 mmol/L (98-107); CREATININE - SERUM 0.8 mg/dL (0.6-1.3); PHOSPHOROUS 2.3 mg/dL (2.5-4.9); POTASSIUM - SERUM 3.8 mmol/L (3.5-5.1); SODIUM 142 mmol/L (136-145); UREA NITROGEN 7 mg/dL (7-18); eGFR NON AFRICAN AMERICAN 78 mL/min (90-120)
[2018-03-29 06:29] LABS: GLUCOSE 208 mg/dL (74-106)
[2018-03-29 09:03] VITALS: BP 125/66
[2018-03-29 12:33] VITALS: BP 114/67
[2018-03-29 16:38] VITALS: BP 117/70
[2018-03-29 19:54] VITALS: BP 128/74
[2018-03-30] VITALS (8 sets, daily range): BP systolic 110–154; BP diastolic 71–89
[2018-03-30 05:27] LABS: BASOPHILS 0.3 % (0-2); EOSINOPHILS 2.5 % (0-7); HEMATOCRIT 35.3 % (36.0-48.0); HEMOGLOBIN 11.4 g/dL (12-16); IMMATURE GRANULOCYTES 0.2 % (0-5); LYMPHOCYTES 30.1 % (15-50); MCHC 32.3 g/dL (31.0-37.0); MEAN PLATELET VOLUME 8.9 fL (7.4-10.4); MONOCYTES 14.3 % (2-11); NEUTROPHILS 52.6 % (40-80); PLATELET COUNT 563 10x3/uL (130-400); RBC 4.07 10x6/uL (4.00-5.40); RDW 13.7 % (11.5-14.5)
[2018-03-30 05:29] LABS: MCV 86.7 fL (80.0-100.0)
[2018-03-30 05:39] LABS: CALC OSMOLALITY 278 mosm/kg (275-300); CALCIUM 8.5 mg/dL (8.5-10.1); CARBON DIOXIDE 29.3 mmol/L (21.0-32.0); CHLORIDE - SERUM 103 mmol/L (98-107); CREATININE - SERUM 0.8 mg/dL (0.6-1.3); POTASSIUM - SERUM 4.1 mmol/L (3.5-5.1); SODIUM 139 mmol/L (136-145); UREA NITROGEN 8 mg/dL (7-18); eGFR NON AFRICAN AMERICAN 78 mL/min (90-120)
[2018-03-30 05:40] LABS: GLUCOSE 153 mg/dL (74-106)
[2018-03-31] VITALS: BP 128/78; BP 149/81
[2018-03-31 04:00] VITALS: BP 154/94
[2018-03-31 06:05] LABS: BASOPHILS 0.3 % (0-2); EOSINOPHILS 3.5 % (0-7); HEMATOCRIT 34.6 % (36.0-48.0); HEMOGLOBIN 11.3 g/dL (12-16); IMMATURE GRANULOCYTES 0.1 % (0-5); LYMPHOCYTES 29.6 % (15-50); MCH 28.2 pg (26.0-34.0); MCHC 32.7 g/dL (31.0-37.0); MCV 86.3 fL (80.0-100.0); MEAN PLATELET VOLUME 8.9 fL (7.4-10.4); MONOCYTES 12.5 % (2-11); PLATELET COUNT 576 10x3/uL (130-400); RBC 4.01 10x6/uL (4.00-5.40); RDW 13.8 % (11.5-14.5); WBC 10.7 10x3/uL (4.8-10.8)
[2018-03-31 06:29] LABS: CALC OSMOLALITY 278 mosm/kg (275-300); CALCIUM 8.8 mg/dL (8.5-10.1); CARBON DIOXIDE 25.7 mmol/L (21.0-32.0); CHLORIDE - SERUM 103 mmol/L (98-107); CREATININE - SERUM 0.7 mg/dL (0.6-1.3); GLUCOSE 163 mg/dL (74-106); MAGNESIUM - SERUM 1.9 mg/dL (1.8-2.4); PHOSPHOROUS 3.9 mg/dL (2.5-4.9); POTASSIUM - SERUM 4.5 mmol/L (3.5-5.1); SODIUM 138 mmol/L (136-145); UREA NITROGEN 10 mg/dL (7-18); eGFR NON AFRICAN AMERICAN > 90 mL/min (90-120)
[2018-03-31 08:35] VITALS: BP 139/86
[2018-03-31 12:08] VITALS: BP 127/84
[2018-03-31 15:38] VITALS: BP 124/71
[2018-03-31 20:21] VITALS: BP 150/97
[2018-04-01 04:21] LABS: BASOPHILS 0.2 % (0-2); EOSINOPHILS 3.4 % (0-7); HEMATOCRIT 34.7 % (36.0-48.0); HEMOGLOBIN 11.5 g/dL (12-16); IMMATURE GRANULOCYTES 0.2 % (0-5); LYMPHOCYTES 29.3 % (15-50); MCHC 33.1 g/dL (31.0-37.0); MCV 84.6 fL (80.0-100.0); MEAN PLATELET VOLUME 8.8 fL (7.4-10.4); MONOCYTES 12.4 % (2-11); NEUTROPHILS 54.5 % (40-80); PLATELET COUNT 601 10x3/uL (130-400); RDW 13.6 % (11.5-14.5); WBC 12.5 10x3/uL (4.8-10.8)
[2018-04-01 04:43] LABS: CALC OSMOLALITY 274 mosm/kg (275-300); CALCIUM 8.9 mg/dL (8.5-10.1); CARBON DIOXIDE 25.2 mmol/L (21.0-32.0); CHLORIDE - SERUM 100 mmol/L (98-107); CREATININE - SERUM 0.7 mg/dL (0.6-1.3); GLUCOSE 136 mg/dL (74-106); POTASSIUM - SERUM 4.2 mmol/L (3.5-5.1); SODIUM 137 mmol/L (136-145); UREA NITROGEN 10 mg/dL (7-18); eGFR NON AFRICAN AMERICAN > 90 mL/min (90-120)
[2018-04-01 08:24] VITALS: BP 135/87
[2018-04-01 11:56] VITALS: BP 136/89
[2018-04-01 15:57] VITALS: BP 133/89
[2018-04-01 20:00] VITALS: BP 143/94
[2018-04-02] VITALS: BP 138/86
[2018-04-02 03:42] LABS: BASOPHILS 0.3 % (0-2); EOSINOPHILS 2.4 % (0-7); HEMATOCRIT 35.3 % (36.0-48.0); HEMOGLOBIN 11.9 g/dL (12-16); IMMATURE GRANULOCYTES 0.2 % (0-5); LYMPHOCYTES 26.7 % (15-50); MCH 28.4 pg (26.0-34.0); MCHC 33.7 g/dL (31.0-37.0); MCV 84.2 fL (80.0-100.0); MEAN PLATELET VOLUME 8.9 fL (7.4-10.4); MONOCYTES 13.9 % (2-11); NEUTROPHILS 56.5 % (40-80); PLATELET COUNT 626 10x3/uL (130-400); RBC 4.19 10x6/uL (4.00-5.40); RDW 13.7 % (11.5-14.5); WBC 11.4 10x3/uL (4.8-10.8)
[2018-04-02 04:04] LABS: ALBUMIN 2.5 g/dL (3.4-5.0); ALKALINE PHOSPHATASE 73 U/L (46-116); ALT (SGPT) 9 U/L (10-68); BILIRUBIN - TOTAL 0.32 mg/dL (0.2-1.3); CALC OSMOLALITY 274 mosm/kg (275-300); CALCIUM 9.2 mg/dL (8.5-10.1); CARBON DIOXIDE 26.8 mmol/L (21.0-32.0); CHLORIDE - SERUM 100 mmol/L (98-107); CREATININE - SERUM 0.7 mg/dL (0.6-1.3); GLUCOSE 106 mg/dL (74-106); PROTEIN - SERUM 7.7 g/dL (6.4-8.2); SODIUM 138 mmol/L (136-145); UREA NITROGEN 10 mg/dL (7-18); eGFR NON AFRICAN AMERICAN > 90 mL/min (90-120)
[2018-04-02 04:37] VITALS: BP 129/88
[2018-04-02 08:05] VITALS: BP 127/79
[2018-04-02 12:02] VITALS: BP 133/85
[2018-04-02 16:21] VITALS: BP 132/87
[2018-04-02 20:00] VITALS: BP 136/78
[2018-04-03 00:32] VITALS: BP 121/65
[2018-04-03 04:50] VITALS: BP 139/86
[2018-04-03 06:21] LABS: BASOPHILS 0.2 % (0-2); HEMATOCRIT 35.5 % (36.0-48.0); HEMOGLOBIN 11.7 g/dL (12-16); IMMATURE GRANULOCYTES 0.2 % (0-5); LYMPHOCYTES 21.5 % (15-50); MCH 27.9 pg (26.0-34.0); MCV 84.7 fL (80.0-100.0); MONOCYTES 14.5 % (2-11); NEUTROPHILS 60.6 % (40-80); PLATELET COUNT 636 10x3/uL (130-400); RBC 4.19 10x6/uL (4.00-5.40); RDW 13.9 % (11.5-14.5); WBC 12.2 10x3/uL (4.8-10.8)
[2018-04-03 06:36] LABS: ALBUMIN 2.5 g/dL (3.4-5.0); ALKALINE PHOSPHATASE 71 U/L (46-116); ALT (SGPT) 9 U/L (10-68); BILIRUBIN - TOTAL 0.35 mg/dL (0.2-1.3); CALC OSMOLALITY 277 mosm/kg (275-300); CALCIUM 9.1 mg/dL (8.5-10.1); CARBON DIOXIDE 24.2 mmol/L (21.0-32.0); CHLORIDE - SERUM 102 mmol/L (98-107); CREATININE - SERUM 0.7 mg/dL (0.6-1.3); GLUCOSE 100 mg/dL (74-106); PROTEIN - SERUM 7.7 g/dL (6.4-8.2); SODIUM 139 mmol/L (136-145); UREA NITROGEN 12 mg/dL (7-18); eGFR NON AFRICAN AMERICAN > 90 mL/min (90-120)
[2018-04-03 09:38] VITALS: BP 132/87
[2018-04-03 13:03] VITALS: BP 157/94
[2018-04-03 17:15] VITALS: BP 141/98
[2018-04-03 21:13] VITALS: BP 153/94
[2018-04-04 01:17] VITALS: BP 117/68
[2018-04-04 04:33] VITALS: BP 128/78
[2018-04-04 05:32] LABS: BASOPHILS 0.3 % (0-2); EOSINOPHILS 2.6 % (0-7); HEMATOCRIT 36.8 % (36.0-48.0); HEMOGLOBIN 11.9 g/dL (12-16); IMMATURE GRANULOCYTES 0.4 % (0-5); LYMPHOCYTES 26.6 % (15-50); MCH 27.5 pg (26.0-34.0); MCHC 32.3 g/dL (31.0-37.0); MCV 85.2 fL (80.0-100.0); MEAN PLATELET VOLUME 8.6 fL (7.4-10.4); MONOCYTES 14.5 % (2-11); NEUTROPHILS 55.6 % (40-80); PLATELET COUNT 596 10x3/uL (130-400); RBC 4.32 10x6/uL (4.00-5.40); RDW 13.6 % (11.5-14.5); WBC 10.2 10x3/uL (4.8-10.8)
[2018-04-04 06:04] LABS: ALBUMIN 2.5 g/dL (3.4-5.0); ALKALINE PHOSPHATASE 72 U/L (46-116); ALT (SGPT) 9 U/L (10-68); BILIRUBIN - TOTAL 0.29 mg/dL (0.2-1.3); CALC OSMOLALITY 276 mosm/kg (275-300); CALCIUM 8.9 mg/dL (8.5-10.1); CARBON DIOXIDE 27.8 mmol/L (21.0-32.0); CHLORIDE - SERUM 102 mmol/L (98-107); CREATININE - SERUM 0.7 mg/dL (0.6-1.3); GLUCOSE 99 mg/dL (74-106); PROTEIN - SERUM 7.7 g/dL (6.4-8.2); SODIUM 139 mmol/L (136-145); UREA NITROGEN 10 mg/dL (7-18); eGFR NON AFRICAN AMERICAN > 90 mL/min (90-120)
[2018-04-04 09:12] VITALS: BP 102/66
[2018-04-04 12:58] VITALS: BP 128/86
[2018-04-04 15:17] VITALS: BP 135/87
[2018-04-04 19:00] VITALS: BP 139/90
[2018-04-05 00:58] VITALS: BP 144/81
[2018-04-05 05:44] VITALS: BP 134/92
[2018-04-05 06:24] LABS: BASOPHILS 0.4 % (0-2); EOSINOPHILS 2.4 % (0-7); HEMATOCRIT 38.2 % (36.0-48.0); HEMOGLOBIN 12.5 g/dL (12-16); IMMATURE GRANULOCYTES 0.3 % (0-5); LYMPHOCYTES 25.5 % (15-50); MCH 27.8 pg (26.0-34.0); MCHC 32.7 g/dL (31.0-37.0); MCV 85.1 fL (80.0-100.0); MEAN PLATELET VOLUME 8.8 fL (7.4-10.4); MONOCYTES 14.2 % (2-11); NEUTROPHILS 57.2 % (40-80); PLATELET COUNT 678 10x3/uL (130-400); RBC 4.49 10x6/uL (4.00-5.40); RDW 13.7 % (11.5-14.5); WBC 12.3 10x3/uL (4.8-10.8)
[2018-04-05 07:09] LABS: ALBUMIN 2.6 g/dL (3.4-5.0); ALKALINE PHOSPHATASE 80 U/L (46-116); ALT (SGPT) 13 U/L (10-68); CALC OSMOLALITY 276 mosm/kg (275-300); CALCIUM 9.8 mg/dL (8.5-10.1); CARBON DIOXIDE 25.9 mmol/L (21.0-32.0); CHLORIDE - SERUM 98 mmol/L (98-107); CREATININE - SERUM 0.7 mg/dL (0.6-1.3); GLUCOSE 128 mg/dL (74-106); POTASSIUM - SERUM 3.8 mmol/L (3.5-5.1); PROTEIN - SERUM 8.2 g/dL (6.4-8.2); SODIUM 138 mmol/L (136-145); UREA NITROGEN 11 mg/dL (7-18); eGFR NON AFRICAN AMERICAN > 90 mL/min (90-120)
[2018-04-05 09:00] VITALS: BP 148/86
[2018-04-05 13:13] VITALS: BP 148/88
[2018-04-05 16:39] VITALS: BP 132/73
[2018-04-05 20:00] VITALS: BP 133/81
[2018-04-06] VITALS: BP 125/86
[2018-04-06 04:00] VITALS: BP 122/82
[2018-04-06 06:28] LABS: BASOPHILS 0.4 % (0-2); EOSINOPHILS 1.4 % (0-7); HEMATOCRIT 37.5 % (36.0-48.0); HEMOGLOBIN 12.3 g/dL (12-16); IMMATURE GRANULOCYTES 0.3 % (0-5); LYMPHOCYTES 21.8 % (15-50); MCH 27.8 pg (26.0-34.0); MCHC 32.8 g/dL (31.0-37.0); MCV 84.8 fL (80.0-100.0); MEAN PLATELET VOLUME 8.7 fL (7.4-10.4); NEUTROPHILS 65.1 % (40-80); PLATELET COUNT 653 10x3/uL (130-400); RBC 4.42 10x6/uL (4.00-5.40); RDW 13.4 % (11.5-14.5); WBC 12.6 10x3/uL (4.8-10.8)
[2018-04-06 06:58] LABS: ALBUMIN 2.6 g/dL (3.4-5.0); ALKALINE PHOSPHATASE 76 U/L (46-116); BILIRUBIN - TOTAL 0.25 mg/dL (0.2-1.3); CALC OSMOLALITY 279 mosm/kg (275-300); CALCIUM 9.6 mg/dL (8.5-10.1); CARBON DIOXIDE 25.8 mmol/L (21.0-32.0); CHLORIDE - SERUM 101 mmol/L (98-107); CREATININE - SERUM 0.8 mg/dL (0.6-1.3); GLUCOSE 144 mg/dL (74-106); POTASSIUM - SERUM 4.1 mmol/L (3.5-5.1); PROTEIN - SERUM 8.2 g/dL (6.4-8.2); SODIUM 139 mmol/L (136-145); UREA NITROGEN 11 mg/dL (7-18); eGFR NON AFRICAN AMERICAN 78 mL/min (90-120)
[2018-04-06 07:08] LABS: ALT (SGPT) 8 U/L (10-68)
[2018-04-06 08:32] VITALS: BP 147/95
[2018-04-06 13:43] VITALS: BP 150/92
[2018-04-06 16:20] VITALS: BP 135/88
[2018-04-06 20:00] VITALS: BP 149/85
[2018-04-07] VITALS (7 sets, daily range): BP systolic 105–150; BP diastolic 76–91
[2018-04-07 06:12] LABS: BASOPHILS 0.3 % (0-2); EOSINOPHILS 1.9 % (0-7); HEMATOCRIT 36.6 % (36.0-48.0); HEMOGLOBIN 11.9 g/dL (12-16); IMMATURE GRANULOCYTES 0.4 % (0-5); LYMPHOCYTES 25.7 % (15-50); MCH 27.5 pg (26.0-34.0); MCHC 32.5 g/dL (31.0-37.0); MCV 84.7 fL (80.0-100.0); MEAN PLATELET VOLUME 8.7 fL (7.4-10.4); MONOCYTES 12.2 % (2-11); NEUTROPHILS 59.5 % (40-80); PLATELET COUNT 652 10x3/uL (130-400); RBC 4.32 10x6/uL (4.00-5.40); RDW 13.5 % (11.5-14.5); WBC 11.7 10x3/uL (4.8-10.8)
[2018-04-07 06:47] LABS: ALBUMIN 2.5 g/dL (3.4-5.0); ALKALINE PHOSPHATASE 74 U/L (46-116); ALT (SGPT) 8 U/L (10-68); BILIRUBIN - TOTAL 0.23 mg/dL (0.2-1.3); CALC OSMOLALITY 279 mosm/kg (275-300); CALCIUM 9.3 mg/dL (8.5-10.1); CARBON DIOXIDE 26.1 mmol/L (21.0-32.0); CHLORIDE - SERUM 102 mmol/L (98-107); CREATININE - SERUM 0.8 mg/dL (0.6-1.3); GLUCOSE 160 mg/dL (74-106); POTASSIUM - SERUM 4.5 mmol/L (3.5-5.1); PROTEIN - SERUM 7.9 g/dL (6.4-8.2); SODIUM 139 mmol/L (136-145); UREA NITROGEN 11 mg/dL (7-18); eGFR NON AFRICAN AMERICAN 78 mL/min (90-120)
[2018-04-08] VITALS: BP 132/81
[2018-04-08 04:00] VITALS: BP 123/80
[2018-04-08 05:17] LABS: BASOPHILS 0.3 % (0-2); EOSINOPHILS 1.9 % (0-7); HEMATOCRIT 35.7 % (36.0-48.0); HEMOGLOBIN 11.7 g/dL (12-16); IMMATURE GRANULOCYTES 0.3 % (0-5); LYMPHOCYTES 23.6 % (15-50); MCH 27.6 pg (26.0-34.0); MCHC 32.8 g/dL (31.0-37.0); MCV 84.2 fL (80.0-100.0); MEAN PLATELET VOLUME 8.9 fL (7.4-10.4); MONOCYTES 12.6 % (2-11); NEUTROPHILS 61.3 % (40-80); PLATELET COUNT 688 10x3/uL (130-400); RBC 4.24 10x6/uL (4.00-5.40); RDW 13.7 % (11.5-14.5)
[2018-04-08 05:30] LABS: ALBUMIN 2.5 g/dL (3.4-5.0); ALKALINE PHOSPHATASE 71 U/L (46-116); ALT (SGPT) 7 U/L (10-68); BILIRUBIN - TOTAL 0.25 mg/dL (0.2-1.3); CALC OSMOLALITY 278 mosm/kg (275-300); CALCIUM 9.2 mg/dL (8.5-10.1); CARBON DIOXIDE 25.2 mmol/L (21.0-32.0); CHLORIDE - SERUM 101 mmol/L (98-107); CREATININE - SERUM 0.7 mg/dL (0.6-1.3); GLUCOSE 114 mg/dL (74-106); POTASSIUM - SERUM 4.2 mmol/L (3.5-5.1); PROTEIN - SERUM 7.6 g/dL (6.4-8.2); SODIUM 140 mmol/L (136-145); UREA NITROGEN 11 mg/dL (7-18); eGFR NON AFRICAN AMERICAN > 90 mL/min (90-120)
[2018-04-08 08:45] VITALS: BP 138/86
[2018-04-08 13:05] VITALS: BP 134/86
[2018-04-08 16:35] VITALS: BP 133/88
[2018-04-08 20:00] VITALS: BP 125/78
[2018-04-09] VITALS: BP 142/88
[2018-04-09 05:00] VITALS: BP 123/83
[2018-04-09 06:20] LABS: ALBUMIN 2.5 g/dL (3.4-5.0); ALKALINE PHOSPHATASE 71 U/L (46-116); BILIRUBIN - TOTAL 0.21 mg/dL (0.2-1.3); CALC OSMOLALITY 274 mosm/kg (275-300); CALCIUM 9.5 mg/dL (8.5-10.1); CARBON DIOXIDE 22.9 mmol/L (21.0-32.0); CHLORIDE - SERUM 101 mmol/L (98-107); CREATININE - SERUM 0.7 mg/dL (0.6-1.3); GLUCOSE 135 mg/dL (74-106); POTASSIUM - SERUM 4.1 mmol/L (3.5-5.1); PROTEIN - SERUM 7.7 g/dL (6.4-8.2); SODIUM 137 mmol/L (136-145); UREA NITROGEN 9 mg/dL (7-18); eGFR NON AFRICAN AMERICAN > 90 mL/min (90-120)
[2018-04-09 06:27] LABS: ALT (SGPT) 10 U/L (10-68)
[2018-04-09 06:41] LABS: BASOPHILS 0.4 % (0-2); EOSINOPHILS 2.1 % (0-7); HEMATOCRIT 34.7 % (36.0-48.0); HEMOGLOBIN 11.3 g/dL (12-16); IMMATURE GRANULOCYTES 0.2 % (0-5); LYMPHOCYTES 25.5 % (15-50); MCH 27.5 pg (26.0-34.0); MCHC 32.6 g/dL (31.0-37.0); MCV 84.4 fL (80.0-100.0); MEAN PLATELET VOLUME 8.8 fL (7.4-10.4); MONOCYTES 13.9 % (2-11); NEUTROPHILS 57.9 % (40-80); PLATELET COUNT 630 10x3/uL (130-400); RBC 4.11 10x6/uL (4.00-5.40); RDW 13.8 % (11.5-14.5); WBC 12.5 10x3/uL (4.8-10.8)
[2018-04-09] MEDS ORDERED: IPRAT-ALBUT 0.5-3 ML UPD (09:09)
[2018-04-09] MEDS ORDERED: Nicoderm [PBKC] TRANSDERM (09:09)
[2018-04-09] MEDS ORDERED: LOVENOX40 MG/0.4 SC (09:09)
[2018-04-09] MEDS ORDERED: BROVANA15 MCG/2 M INH (09:09)
[2018-04-09] MEDS ORDERED: BENADRYL A12.5 MG/5 PO (09:09)
[2018-04-09] MEDS ORDERED: ALBUTEROL2.5 MG/3 M INH (09:09)
[2018-04-09] MEDS ORDERED: GLUTOSE 1537.5 GM PO (09:10)
[2018-04-09] MEDS ORDERED: Dextrose 50%-Water I IV (09:10)
[2018-04-09] MEDS ORDERED: PULMICORT0.5 MG/21 UPD (09:11)
[2018-04-09] MEDS ORDERED: PEPCID INJ20 MG/2 ML IV (09:11)
[2018-04-09] MEDS ORDERED: MUCINEX DM ER1 EAC1 PO (09:11)
[2018-04-09] MEDS ORDERED: COLACE100 MG PO (09:11)
[2018-04-09] MEDS ORDERED: PROTONIX40 MG PO (09:12)
[2018-04-09] MEDS ORDERED: ONDANSETRON4 MG/2 M3 IV (09:12)
[2018-04-09] MEDS ORDERED: FLORAJEN3 CAPS460 MG PO (09:12)
[2018-04-09] MEDS ORDERED: GLUCAGEN1 MG/VIAL IM (09:12)
[2018-04-09] MEDS ORDERED: HUMULIN R100 U/ML SC (09:13)
[2018-04-09] MEDS ORDERED: GLUCAGEN1 MG/VIAL SC (09:13)
[2018-04-09 09:21] VITALS: BP 141/80
[2018-04-09 12:51] VITALS: BP 123/86
== END 2018-04-09 15:04 | DRG 186 ==
LOC: D.ER 13:22 → D.MS 15:46 → D.EDHOLD 15:46 → D.MS 20:06
PROVIDERS: Family Medicine; General Practice; Internal Medicine Nephrology; Radiology Vascular & Interventional Radiology
PROC: 0W993ZZ Drainage of Right Pleural Cavity, Percutaneous Approach (ICD-10-PCS; principal; 2018-03-27 08:30)
DX: J90 Pleural effusion, not elsewhere classified (principal); J96.00 Acute respiratory failure, unspecified whether with hypoxia or hypercapnia; J18.9 Pneumonia, unspecified organism; N39.0 Urinary tract infection, site not specified; F17.213 Nicotine dependence, cigarettes, with withdrawal; J44.1 Chronic obstructive pulmonary disease with (acute) exacerbation; E11.9 Type 2 diabetes mellitus without complications; I25.10 Atherosclerotic heart disease of native coronary artery without angina pectoris; I10 Essential (primary) hypertension; J44.9 Chronic obstructive pulmonary disease, unspecified; D38.1 Neoplasm of uncertain behavior of trachea, bronchus and lung

== ENCOUNTER 2018-04-09 15:19 | Inpatient (IN) | payer MEDICARE, OTHER, MEDICAID ==
[~2018-04-09] VITALS: Ht 162.6 cm; Wt 56.7 kg
--- NOTE | ~2018-04-09 | RHP ---
PATIENT: WESLEY ORTEZ MEDICAL RECORD: [id number] ACCOUNT: [id number] LOCATION:[facility]11[facility] : 56 ADMISSION DATE: 04/09/18 REHABILITATION HISTORY AND PHYSICAL EXAMINATION POST ADMISSION PHYSICIAN EXAMINATION DATE OF ADMISSION: 04/09/2018 ADMITTING DIAGNOSES: Right pleural effusion or chronic obstructive pulmonary disease. HISTORY OF PRESENT ILLNESS: The patient is admitted to inpatient rehab with pulmonary impairment group. She is a 57-year-old female followed by Dr. Charles and has got a past medical history of coronary artery disease with stent placement, COPD, vertigo, osteoporosis, renal cell carcinoma. She has had a nephrectomy. She has had neoadjuvant chemotherapy, compression fractures, bipolar disorder, and anxiety. She was admitted to the acute hospital for shortness of breath and cough and found to have an abnormal chest x-ray, which showed a right pleural effusion and a subsequent CTA showing no signs of an embolus. She had a left upper lobe density or scarring. Right apical area, also noted with bullous emphysema. She has a right 6th rib fracture, chronic rib fractures involving the 8th, 9th and 10th in the past, got a history of pneumonia times 2. She states her illness started on Thanksgiving after developing a respiratory tract infection, pharyngitis, swollen nose was supposed to a next door neighbor who had pneumonia. She was seen in outpatient clinic and told to follow up for the right pleural effusion. She has had some increased shortness of breath, she has been using her inhalers more at home. She has had chronic chest pain. She had a thoracentesis on 03/27/2018 with 1900 cc of clear yellow pleural effusion aspirated. Prior to this illness, she was completely independent with ADLs, living alone in a camper and was independent with ambulation after several falls. She is currently very weak, unsteady with ambulation. She will require intensive therapy to return back to her prior level of functioning and hopefully be able to navigate the steps in and out of her camper and to be able to perform her normal ADLs. COMORBIDITIES: In this patient include hypoxic respiratory failure, pneumonia, right apex lung mass, emphysema, bibasilar atelectasis, UTI, anemia, COPD, diabetes, coronary artery disease, anxiety and bipolar disorder. PAST MEDICAL HISTORY: Significant for vertigo, numbness, history of diabetes, coronary artery disease, COPD, renal carcinoma, compression fractures, osteoporosis, anxiety and bipolar. PAST SURGICAL HISTORY: Includes gallbladder surgery, appendectomy, and hysterectomy. She has had a cyst removed. She has had heart stents times 3 and a kidney removed. ALLERGIES: CONCERTA, NONSTEROIDAL ANTI-INFLAMMATORIES, PENICILLIN, ACETAMINOPHEN, TORADOL, METHYLPHENIDATE, MORPHINE, DARVOCET, RISPERDAL, SULFA DRUGS, ANY TYPE OF SUMATRIPTAN OR HEADACHE MEDICATION AND TRIMETHOPRIM. CURRENT MEDICATIONS: Include Protonix 40 mg daily. She is on a Nicoderm patch. She is on Remeron 15 mg daily, lisinopril 2.5 mg daily, Floranex 460 mg daily, Lovenox 40 mg subQ daily, Colace 200 mg daily, lorazepam 1 mg b.i.d. p.r.n. She is on a glucose replacement protocol, Desyrel 150 mg bedtime, Zofran 4 mg every HISTORY AND PHYSICAL [id number] PÉREZ,WESLEY D 6 hours p.r.n. nausea and vomiting, DuoNeb updrafts. She is on a low-resistant sliding scale with Humulin, Tillson 5/325 one tab every 6 hours p.r.n., Mucinex D 1 p.o. b.i.d., Pepcid 20 mg at bedtime, Benadryl 12.5 mg every 6 hours p.r.n., Pulmicort 0.5 mg b.i.d., Tessalon Perles 100 mg t.i.d., Brovana 15 mcg b.i.d., and Ventolin updrafts as needed. HABITS: No current alcohol or tobacco use. FAMILY HISTORY: Noncontributory. SOCIAL HISTORY: The patient hopes to return back home and get back to her prior level of functioning. She lives in a camper. REVIEW OF SYSTEMS: GENERAL: She does complain of weakness and fatigue. HEENT: Denies cold, cough, or congestion. CARDIOVASCULAR: Denies chest pain. PHYSICAL EXAMINATION: VITAL SIGNS: Stable, afebrile. GENERAL: A thin female, in no acute distress, alert upon exam. HEENT: Normocephalic and atraumatic. Mucosa moist. NECK: Supple. No lymphadenopathy. LUNGS: Clear in upper shay. She does have decreased breath sounds in her bases, particularly on the right. CARDIOVASCULAR: Regular rate and rhythm. She is a little tachycardic. ABDOMEN: Benign. EXTREMITIES: No clubbing, cyanosis or edema. NEUROLOGIC: She does have some noted weakness and she also has a little bit of flight of ideas. LABORATORY DATA: White count is 10.8, H&H 12 and 35, and platelet count was noted at 664. Her sodium is 138, potassium 4.7, BUN and creatinine of 10 and 0.7 and blood sugar is 139. ASSESSMENT: This is a 57-year-old female patient admitted to rehab with a working diagnosis of chronic obstructive pulmonary disease complicated by a right pleural effusion. The patient has potential to make improvement. We instituted the following multidisciplinary therapies including, but not limited to physical, occupational, respiratory, speech, nutritional services, prosthetics and orthotics. Given her complex medical condition and risk for more complications, rehabilitation services cannot be provided at a low level of care such as skilled nurse facility. PLAN: 1. Admit to [facility] rehab for intensive inpatient therapy to include the following disciplines: A. Physical therapy to improve gait, all transfer skills and bed mobility to a modified independent level. B. Occupational therapy to a modified independent level. C. Case management to assist with discharge planning and placement options. D. Nutrition to assist with nutritional needs. E. Rehabilitation nursing to assist in monitoring the patient's underlying medical conditions and to assist with any type of bowel or bladder management. 2. The patient's current medication and medical care will be continued. HISTORY AND PHYSICAL [id number] WESLEY ORTEZ 3. The patient will be placed on standard fall precautions. 4. The patient's estimated length of stay is approximately 7-10 days. 5. We will discuss the patient during care team staff today at noon and we will follow up on her medications. TRANSINT:[id number] Voice Confirmation ID: [id number] DOCUMENT ID: [id number] RENAY notes whether there has been none or any medical/functional change since admission: - No change since prescreen. RENAY attests patient continues to be appropriate for IRF: - Continues to be appropriate. CHIKA BAXTER MD at 1204 CC: [id number] DICTATION DATE: 04/10/18906 DIRECTOR CAREER SERVICES: 04/10/18 1018 ADM IN [facility] [address] [facility]
[~2018-04-09 15:19] MED LIST changes: +ALBUTEROL2.5 MG/3 M INH; +BENADRYL A12.5 MG/5 PO; +BROVANA15 MCG/2 M INH; +COLACE100 MG PO; +Dextrose 50%-Water I IV; +FLORAJEN3 CAPS460 MG PO; +GLUCAGEN1 MG/VIAL IM; +GLUCAGEN1 MG/VIAL SC; +GLUTOSE 1537.5 GM PO; +HUMULIN R100 U/ML SC; +IPRAT-ALBUT 0.5-3 ML UPD; +LOVENOX40 MG/0.4 SC; +MUCINEX DM ER1 EAC1 PO; +Nicoderm [PBKC] TRANSDERM; +ONDANSETRON4 MG/2 M3 IV; +PEPCID INJ20 MG/2 ML IV; +PULMICORT0.5 MG/21 UPD; +REMERON15 MG PO; +TRAZODONE HCL150 MG PO
[2018-04-09 15:22] VITALS: BP 134/75; BMI 21.5
[2018-04-09 19:00] VITALS: BP 141/88
[2018-04-10 07:12] LABS: BASOPHILS 0.3 % (0-2); EOSINOPHILS 2.2 % (0-7); HEMOGLOBIN 11.7 g/dL (12-16); IMMATURE GRANULOCYTES 0.3 % (0-5); LYMPHOCYTES 27.3 % (15-50); MCH 28.2 pg (26.0-34.0); MCHC 33.4 g/dL (31.0-37.0); MCV 84.3 fL (80.0-100.0); MEAN PLATELET VOLUME 8.9 fL (7.4-10.4); MONOCYTES 12.6 % (2-11); NEUTROPHILS 57.3 % (40-80); PLATELET COUNT 664 10x3/uL (130-400); RBC 4.15 10x6/uL (4.00-5.40); RDW 13.8 % (11.5-14.5); WBC 10.8 10x3/uL (4.8-10.8)
[2018-04-10 07:25] LABS: CALC OSMOLALITY 276 mosm/kg (275-300); CALCIUM 9.7 mg/dL (8.5-10.1); CHLORIDE - SERUM 102 mmol/L (98-107); CREATININE - SERUM 0.7 mg/dL (0.6-1.3); GLUCOSE 139 mg/dL (74-106); POTASSIUM - SERUM 4.7 mmol/L (3.5-5.1); SODIUM 138 mmol/L (136-145); UREA NITROGEN 10 mg/dL (7-18); eGFR NON AFRICAN AMERICAN > 90 mL/min (90-120)
[2018-04-10 08:00] VITALS: BP 127/86
[2018-04-10 13:21] VITALS: Ht 162.6 cm; Wt 56.7 kg
[2018-04-10 19:00] VITALS: BP 138/85
[2018-04-11 08:00] VITALS: BP 118/76
[2018-04-11 19:00] VITALS: BP 135/83
[2018-04-12 05:51] LABS: BASOPHILS 0.3 % (0-2); EOSINOPHILS 1.8 % (0-7); HEMATOCRIT 35.6 % (36.0-48.0); HEMOGLOBIN 11.7 g/dL (12-16); IMMATURE GRANULOCYTES 0.2 % (0-5); LYMPHOCYTES 22.9 % (15-50); MCH 27.6 pg (26.0-34.0); MCHC 32.9 g/dL (31.0-37.0); MEAN PLATELET VOLUME 8.9 fL (7.4-10.4); NEUTROPHILS 60.8 % (40-80); PLATELET COUNT 701 10x3/uL (130-400); RBC 4.24 10x6/uL (4.00-5.40); RDW 13.8 % (11.5-14.5); WBC 11.8 10x3/uL (4.8-10.8)
[2018-04-12 06:11] LABS: CALC OSMOLALITY 277 mosm/kg (275-300); CALCIUM 9.5 mg/dL (8.5-10.1); CARBON DIOXIDE 25.7 mmol/L (21.0-32.0); CHLORIDE - SERUM 101 mmol/L (98-107); CREATININE - SERUM 0.7 mg/dL (0.6-1.3); GLUCOSE 167 mg/dL (74-106); POTASSIUM - SERUM 4.5 mmol/L (3.5-5.1); SODIUM 137 mmol/L (136-145); eGFR NON AFRICAN AMERICAN > 90 mL/min (90-120)
[2018-04-12 06:14] LABS: UREA NITROGEN 13 mg/dL (7-18)
[2018-04-12 08:00] VITALS: BP 120/77
[2018-04-12 19:00] VITALS: BP 119/79
[2018-04-13 08:00] VITALS: BP 107/69
[2018-04-13 20:00] VITALS: BP 131/85
[2018-04-14 11:30] VITALS: BP 112/72
[2018-04-15 00:16] VITALS: BP 127/86
[2018-04-15 08:00] VITALS: BP 106/75
[2018-04-15 19:02] VITALS: BP 129/80
[2018-04-16 07:55] VITALS: BP 117/69
[2018-04-16 21:00] VITALS: BP 116/72
[2018-04-17 06:08] LABS: BASOPHILS 0.3 % (0-2); EOSINOPHILS 2.4 % (0-7); HEMATOCRIT 34.5 % (36.0-48.0); HEMOGLOBIN 11.1 g/dL (12-16); IMMATURE GRANULOCYTES 0.3 % (0-5); LYMPHOCYTES 29.6 % (15-50); MCH 26.9 pg (26.0-34.0); MCHC 32.2 g/dL (31.0-37.0); MCV 83.7 fL (80.0-100.0); MEAN PLATELET VOLUME 9.2 fL (7.4-10.4); MONOCYTES 15.1 % (2-11); NEUTROPHILS 52.3 % (40-80); PLATELET COUNT 724 10x3/uL (130-400); RBC 4.12 10x6/uL (4.00-5.40); RDW 13.7 % (11.5-14.5); WBC 9.9 10x3/uL (4.8-10.8)
[2018-04-17 06:42] LABS: CALC OSMOLALITY 276 mosm/kg (275-300); CALCIUM 9.6 mg/dL (8.5-10.1); CARBON DIOXIDE 27.6 mmol/L (21.0-32.0); CHLORIDE - SERUM 99 mmol/L (98-107); CREATININE - SERUM 0.7 mg/dL (0.6-1.3); GLUCOSE 155 mg/dL (74-106); POTASSIUM - SERUM 4.6 mmol/L (3.5-5.1); SODIUM 137 mmol/L (136-145); UREA NITROGEN 13 mg/dL (7-18); eGFR NON AFRICAN AMERICAN > 90 mL/min (90-120)
[2018-04-17 08:00] VITALS: BP 107/73
[2018-04-17 21:00] VITALS: BP 105/70
[2018-04-18 08:00] VITALS: BP 102/75
[2018-04-19 08:00] VITALS: BP 112/73
== END 2018-04-19 11:30 | disposition home health service (06) | DRG 190 ==
LOC: D.REHAB 15:19
PROVIDERS: Emergency Medicine
DX: J43.9 Emphysema, unspecified (principal); J18.9 Pneumonia, unspecified organism; J96.01 Acute respiratory failure with hypoxia; J90 Pleural effusion, not elsewhere classified; J98.11 Atelectasis; N39.0 Urinary tract infection, site not specified; D64.9 Anemia, unspecified; E11.9 Type 2 diabetes mellitus without complications; I25.10 Atherosclerotic heart disease of native coronary artery without angina pectoris; F41.9 Anxiety disorder, unspecified; F31.9 Bipolar disorder, unspecified; M81.0 Age-related osteoporosis without current pathological fracture

== ENCOUNTER 2018-04-30 20:12 | Emergency (ER) | payer MEDICARE, OTHER, MEDICAID ==
[~2018-04-30] VITALS: Ht 162.6 cm; Wt 52.7 kg
[2018-04-30 20:25] VITALS: Ht 162.6 cm; Wt 52.7 kg
[2018-04-30 23:34] VITALS: BP 127/77
== END 2018-04-30 23:36 | disposition home or self-care (01) ==
LOC: D.ER 20:12
DX: S20.211A Contusion of right front wall of thorax, initial encounter (principal); W18.30XA Fall on same level, unspecified, initial encounter; Y93.89 Activity, other specified; Y92.019 Unspecified place in single-family (private) house as the place of occurrence of the external cause

== ENCOUNTER 2018-05-07 15:04 | Inpatient (IN) | payer MEDICARE, OTHER, MEDICAID ==
[~2018-05-07] VITALS: Ht 162.6 cm; Wt 55.9 kg
[2018-05-07 16:18] LABS: APPEARANCE CLEAR (CLEAR); BILIRUBIN NEGATIVE (NEGATIVE); COLOR YELLOW (YELLOW); GLUCOSE NEGATIVE (NEGATIVE); KETONE NEGATIVE (NEGATIVE); NITRITE NEGATIVE (NEGATIVE); PROTEIN NEGATIVE (NEGATIVE); SPECIFIC GRAVITY 1.005 (1.005-1.020); UROBILINOGEN NORMAL (NORMAL)
[2018-05-07 16:18] LABS: BASOPHILS 0.3 % (0-2); EOSINOPHILS 3.4 % (0-7); HEMATOCRIT 33.3 % (36.0-48.0); HEMOGLOBIN 10.3 g/dL (12-16); IMMATURE GRANULOCYTES 0.4 % (0-5); LYMPHOCYTES 30.9 % (15-50); MCH 25.8 pg (26.0-34.0); MCHC 30.9 g/dL (31.0-37.0); MCV 83.3 fL (80.0-100.0); MEAN PLATELET VOLUME 8.8 fL (7.4-10.4); MONOCYTES 9.8 % (2-11); NEUTROPHILS 55.2 % (40-80); WBC 13.8 10x3/uL (4.8-10.8)
[2018-05-07 16:19] LABS: EPITHELIAL CELLS OCC /hpf (0-5); RED CELLS - URINE OCC /hpf (0-5); WHITE CELLS - URINE 0-5 /hpf (0-5)
[2018-05-07 16:20] LABS: BACTERIA MODERATE /hpf (NONE SEEN)
[2018-05-07 16:20] LABS: PLATELET COUNT 470 10x3/uL (130-400)
[2018-05-07 16:35] LABS: ALBUMIN 2.2 g/dL (3.4-5.0); ANION GAP 13.1 mmol/L (8-16); BILIRUBIN - TOTAL 0.18 mg/dL (0.2-1.3); CALCIUM 8.7 mg/dL (8.5-10.1); CARBON DIOXIDE 26.2 mmol/L (21.0-32.0); CREATININE - SERUM 0.9 mg/dL (0.6-1.3); POTASSIUM - SERUM 4.3 mmol/L (3.5-5.1); PROTEIN - SERUM 7.5 g/dL (6.4-8.2)
--- NOTE | 2018-05-07 16:59 | NUR ---
THUAN BARNARD STATED PT DID NTO NEED AN EKG
[2018-05-07 17:01] LABS: TROPONIN-I 1.049 ng/mL (0.000-0.060)
[2018-05-07] MEDS ORDERED: KLONOPIN1 MG PO (20:22)
[2018-05-07] MEDS ORDERED: TYLENOL W/CODEI1 TAB PO (20:32)
[2018-05-07] MEDS ORDERED: ZYPREXA15 MG PO (20:33)
[2018-05-07] MEDS ORDERED: NEURONTIN 300300 MG PO (20:33)
[2018-05-07] MEDS ORDERED: CENTRUM SILVER1 EAC3 PO (20:34)
--- NOTE | 2018-05-07 21:10 | NUR ---
REC'D PATIENT FROM THE ER. NO S/S OF DISTRESS. PUT PATIENT ON 2L NC FOR LOW O2. PATIENT REQUESTED DOCTOR BE CALLED IN REGARDS TO PAIN MEDICATION AND HOME MEDS BEING RESTARTED. PATIENT DENIES OTHER NEEDS AT THIS TIME. BED IN LOWEST POSITION AND CALL LIGHT WITHIN REACH. ENCOURAGED THE PATIENT TO CALL IF SHE HAS NEEDS.
--- NOTE | 2018-05-07 21:25 | NUR ---
CALLED DR. MCCONNELL IN REGARDS TO PAIN MEDICATION, HOME MEDS, AND THE PATIENT'S ELEVATED PULSE IN THE 130'S. REVIEWED MEDS. DR. MCCONNELL RESTARTED THE PATIENT'S HOME MEDS, ORDERED AN EKG, AND MADE THE PATIENT NPO.
[2018-05-08 04:00] VITALS: BP 98/54
[2018-05-08 05:32] VITALS: BP 148/96; BMI 21.3
--- NOTE | 2018-05-08 07:32 | NUR ---
AM ROUNDS- PT IN BED, LETHARGIC AROUSES TO STIMULI. PT ASKING FOR PAIN MEDICATION, INFOMRED HER THAT I WOULD HAVE TO CHECK TO SEE IF SHE CAN HAVE SOMETHING. PT A/O X3, RESP EVEN AND UNLABORED ON 5L. PT DNEIES ANY OTHER NEEDS AT THIS TIME. CALL LIGHT IN REACH, NAD NOTED, WILL CONTINUE PLAN OF CARE.
[2018-05-08 07:54] VITALS: BP 139/91
--- NOTE | 2018-05-08 08:18 | NUR ---
GAVE AM MEDS AND 650MG OF TYLENOL FOR FEVER/HEADACHE, PT DENIES ANY OTHER NEEDS AT THIS TIME. CALL LIGHT IN REACH, NAD NOTED, WILL CONTINUE TO MONITOR.
--- NOTE | 2018-05-08 11:16 | NUR ---
WENT TO PLACE HEART MONITOR ON PT, PT ASKING FOR PAIN MEDICATIONS STATES THAT HER HEAD AND ABD ARE HURTING. INFORMED PT THAT I CANNOT GIVE HER ANY PAIN MEDICATIONS PT SHE IS TOO LETHARGIC AND WHEN THE GARBAGE COLLECTOR ROUNDED SHE COULD NOT GET HER TO WAKE UP. PT STATES " THEN I WANT TO BE TRANSFERED TO A DIFFERENT HOSPITAL." ASKED PT WHAT HOSPITAL AND SHE DID NOT SAY ANYTHING ELSE, INFORMED PT THAT I COULD NOT GIVE ANYTHING FOR PAIN UNTIL SHE WAS FULLY AWAKE. REPOSITIONED PT IN BED, EXPLAINED RATIONAL FOR SCD'S PT REFUSED TO WEA SCDS AT THIS TIME. PT DENIES ANY OTHER NEEDS AT THIS TIME. CALL LIGHT IN REACH, NAD NOTED, WILL CONTINUE TO MONITOR.
[2018-05-08 11:46] VITALS: BP 106/73
--- NOTE | 2018-05-08 12:25 | NUR ---
WAS CALLED TO ROOM BY TURPENTINE DISTILLER BECAUSE PT WAS LAYING ON THE FLOOR, THIS NURSE, LINDERMAN OPERATOR AND SHOTGUN SHELL LOADING MACHINE OPERATOR GOT PT BACK IN BED, PT STATED THAT SHE WAS TRYING TO GET HER BREAKFAST TRAY. PT IS NPO DID NOT GET LUNCH TRAY. ASKED PT IF SHE HIT HER HEAD AND PT STATED "NO". NO INJURIES NOTED OTHER THAN REDNESS TO BILAT KNEES. MARY ALARM IN PLACE, NONSKID SOCKS, AND YELLOW GOWN ON. PT DENIES ANY NEEDS AT THIS TIME. CALL LIGHT IN REACH, BEDSIDE RAILS X3, WILL CONTINUE TO MONITOR.
--- NOTE | 2018-05-08 12:56 | NUR ---
CALLED DEVORAH FROM RESPIRATORY AND INFORMED THAT I NEED ABGS ON PT, DEVORAH STATED THAT SHE WOULD BE DOWN HERE SHORTLY.
[2018-05-08 14:10] VITALS: BMI 21.2
[2018-05-08 14:57] LABS: % SATURATION 10 % (15-55); IRON 20 ug/dl (35-150); TOTAL IRON BIND CAPACITY 200 ug/dl (260-445); UNSAT IRON BIND CAPACITY 180 ug/dl (150-375)
[2018-05-08 15:09] LABS: CKMB 4.1 U/L (0.0-3.6); CREATINE KINASE 87 UL (21-215)
[2018-05-08 15:17] LABS: TROPONIN-I 1.669 ng/mL (0.000-0.060)
--- NOTE | 2018-05-08 15:18 | NUR ---
NORCO GIVEN AT THIS TIME. FOR PAIN LEVEL OF 8/10. PT INSTRUCTED TO REMAIN NPO UNTIL ABD ULTRASOUND IS DONE. PT DENIES ANY OTHER NEEDS AT THIS TIME. CALL LIGHT IN REACH, NAD NOTED,W ILL CONTINUE TO MONITOR.
[2018-05-08 15:46] VITALS: BP 141/91
[2018-05-08 16:06] LABS: UDS - AMPHET NEGATIVE QUAL (NEGATIVE); UDS - BARB NEGATIVE QUAL (NEGATIVE); UDS - BENZO NEGATIVE QUAL (NEGATIVE); UDS - COCAINE NEGATIVE QUAL (NEGATIVE); UDS - OPIATE POSITIVE QUAL (NEGATIVE); UDS - PCP NEGATIVE QUAL (NEGATIVE); UDS - THC NEGATIVE QUAL (NEGATIVE)
[2018-05-08 16:19] LABS: APPEARANCE CLEAR (CLEAR); BILIRUBIN NEGATIVE (NEGATIVE); COLOR YELLOW (YELLOW); GLUCOSE NEGATIVE (NEGATIVE); KETONE NEGATIVE (NEGATIVE); NITRITE NEGATIVE (NEGATIVE); PROTEIN NEGATIVE (NEGATIVE); UROBILINOGEN NORMAL (NORMAL)
[2018-05-08 16:20] LABS: WHITE CELLS - URINE 0-5 /hpf (0-5)
[2018-05-08 16:21] LABS: BACTERIA FEW /hpf (NONE SEEN); EPITHELIAL CELLS OCC /hpf (0-5); RED CELLS - URINE 0-5 /hpf (0-5)
--- NOTE | 2018-05-08 16:25 | NUR ---
CALLED REPORT TO RIA REA.
[2018-05-08 16:29] VITALS: Ht 162.6 cm; Wt 55.9 kg
[2018-05-08 16:51] LABS: ANION GAP 14.4 mmol/L (8-16); CALCIUM 8.6 mg/dL (8.5-10.1); CARBON DIOXIDE 27.9 mmol/L (21.0-32.0); CREATININE - SERUM 0.9 mg/dL (0.6-1.3); POTASSIUM - SERUM 4.3 mmol/L (3.5-5.1)
[2018-05-08 16:56] LABS: BASOPHILS 0.3 % (0-2); EOSINOPHILS 1.2 % (0-7); HEMATOCRIT 31.9 % (36.0-48.0); HEMOGLOBIN 10.1 g/dL (12-16); IMMATURE GRANULOCYTES 0.3 % (0-5); LYMPHOCYTES 31.1 % (15-50); MCHC 31.7 g/dL (31.0-37.0); MCV 82.2 fL (80.0-100.0); MEAN PLATELET VOLUME 9.2 fL (7.4-10.4); MONOCYTES 13.1 % (2-11); PLATELET COUNT 475 10x3/uL (130-400); RBC 3.88 10x6/uL (4.00-5.40); RDW 15.2 % (11.5-14.5)
--- NOTE | 2018-05-08 17:02 | NUR ---
TRIED TO START A 20G IV ON PT FOR CTA, STUCK PT TWICE AND WAS UNSUCCESSFUL. WILL NOTIFY RIA REA WHO WILL BE GETTING PT.
--- NOTE | 2018-05-08 17:53 | NUR ---
PT TRANSFERED TO [facility] 2 VIQA WHEECHAIR, WITH ALL BELONGINGS. NOTIFIED RIA REA THAT PT PULLED IV AND ALSO NEEDS A 20G IV FOR CTA
--- NOTE | 2018-05-08 18:17 | NUR ---
20 GAUGE IV PUT IN BY DIMITRI WHITLOCK. CT NOTIFIED.
--- NOTE | 2018-05-08 19:18 | NUR ---
RESUMED CARE OF PT, LYING IN BED RESPIRATIONS EVEN AND UNLABORED ON 5LPM VIA NC. [address] ON TELEMETRY. GALVEZ TO GRAVITY. VERY CONFUSED AT THIS TIME, UNABLE TO MAKE A CLEAR THOUGHT, HER MIND IS JUMPING FROM ONE THOUGHT TO THE NEXT. MARY AERLY ON AND WORKING. CALL LIGHT IN REACH. SEE NURSE ASSESSMENT.
--- NOTE | 2018-05-08 19:51 | NUR ---
20 GAUGE TO RIGHT HAND X [address] NOTIFIED OF PATENT IV
[2018-05-08 20:00] VITALS: BP 142/91
--- NOTE | 2018-05-08 20:15 | NUR ---
GONE FOR CTA
[2018-05-08 22:27] LABS: CREATINE KINASE 128 UL (21-215)
[2018-05-08 22:49] LABS: CKMB 6.3 U/L (0.0-3.6); TROPONIN-I 2.917 ng/mL (0.000-0.060)
--- NOTE | 2018-05-08 23:37 | NUR ---
LYING IN BED WITH CALL LIGHT IN REACH. WILL CONTINUE TO MONITOR.
[2018-05-09] VITALS (7 sets, daily range): BP systolic 120–163; BP diastolic 72–102
[2018-05-09 05:04] LABS: BASOPHILS 0.2 % (0-2); HEMATOCRIT 30.3 % (36.0-48.0); HEMOGLOBIN 9.6 g/dL (12-16); IMMATURE GRANULOCYTES 0.3 % (0-5); LYMPHOCYTES 19.2 % (15-50); MCHC 31.7 g/dL (31.0-37.0); MCV 82.1 fL (80.0-100.0); MEAN PLATELET VOLUME 9.2 fL (7.4-10.4); MONOCYTES 9.7 % (2-11); NEUTROPHILS 69.6 % (40-80); PLATELET COUNT 442 10x3/uL (130-400); RBC 3.69 10x6/uL (4.00-5.40); WBC 12.4 10x3/uL (4.8-10.8)
[2018-05-09 05:47] LABS: CALC OSMOLALITY 273 mosm/kg (275-300); CHLORIDE - SERUM 98 mmol/L (98-107); CKMB 4.5 U/L (0.0-3.6); CREATINE KINASE 100 UL (21-215); CREATININE - SERUM 0.8 mg/dL (0.6-1.3); GLUCOSE 190 mg/dL (74-106); POTASSIUM - SERUM 3.7 mmol/L (3.5-5.1); SODIUM 135 mmol/L (136-145); TROPONIN-I 2.158 ng/mL (0.000-0.060); UREA NITROGEN 9 mg/dL (7-18); eGFR NON AFRICAN AMERICAN 78 mL/min (90-120)
--- NOTE | 2018-05-09 06:37 | NUR ---
ATTEMPTED TO CALL FAMILY, PT VERY AGITATED WANTING TO LEAVE, KEEPS GETTING UP. REMAINS UNSTABLE ON FEET, CONFUSED TO PLACE AND SITUATION, IS INSISTENT THAT SHE GO TO ANOTHER ROOM TO SMOKE ON THE PORCH.
--- NOTE | 2018-05-09 07:17 | NUR ---
ROUNDING DONE WITH PATIENT SITTING ON SIDE OF BED, VERY CONFUSED. MARY ALARM ON AND IN USE. ON HEART MONITOR SHOWING ST, HR 139. ON 5L PER NC. LEFT UPPER ARM PIV SEEN WITH NS INFUSING AT 75 CC/HR. GALVEZ CATH PATENT WITH CLEAR YELLOW URINE. WILL TRY AND MONITOR FOR SAFETY.
--- NOTE | 2018-05-09 08:01 | NUR ---
PATIENT CALMING DOWN SLIGHTLY, TH[address]. I HAVE TRIED TO RE-ORIENT PATIENT BUT UN-SUCCESSFUL. DELFIN AND LINDA GIVEN. WILL MONITOR. PATIENT IS SUPPOSE TO HAVE HEART CATH TODAY BUT IS SO DISORIENTED THAT SHE IS UNABLE TO SIGN CONSENTS. WILL MONITOR.
--- NOTE | 2018-05-09 08:56 | NUR ---
FABIO AYERS APN ON FLOOR. NEW STAT ORDERS RECEVIED.
[2018-05-09 09:19] LABS: FOLATE (FOLIC ACID) - SERUM >20.0 ng/mL (>3.0)
--- NOTE | 2018-05-09 09:27 | NUR ---
TO RADIOLOGY VIA BED FOR CT HEAD.
--- NOTE | 2018-05-09 09:44 | NUR ---
TO RETURN FROM RADIOLOGY. MARY GUSMAN IN USE.
--- NOTE | 2018-05-09 10:47 | NUR ---
1035-I CALLED FARSHAD (NIECE OF PATIENT) WHO STATES THAT SHE IS AT WORK ALONG WITH [employer] (JULIO CESAR) AND CAN'T GET HER UNTIL 5 PM. I EXPLAINED TO FARSHAD THAT THE CT OF THE HEAD SHOWED A STROKE AND ALSO LEFT UPPER AND LOWER PE AND RIGHT UPPER AND LOWER PNUEMONIA. THIS WAS CALLED TO ME FROM GINI MCCARTHY. 1047-I CALLED [facility] FOR A MARY BED THE PATIENT WILL NOT STAY IN THE BED FOR SAFETY, SHE IS CONTINOUSLY TRYING TO GET OUT OF THE BED AND WALK, HE GAIT IS VERY UNSTEADY. I HAVE A REAR LOAD TRUCK DRIVER IN THERE NOW FOR ONE ON ONE CARE AT THIS TIME. I CALLED EMELY ADHESIVE BANDAGE MACHINE OPERATOR TO LET HER KNOW OF THE SITUATION. PATIENT IS VERY DISORENTED TO PERSON, PLACE, AND TIME. SHE CONTINUES TO STATES THAT SHE IS AT HOME. SHE IS TELLING US THAT WE ARE LIARS FOR TELLING HER SHE IS IN THE HOSPITAL. 1055-I CALLED FARSHAD AGAIN TO LET HER KNOW THAT WE HAVE ORDERD A MARY BED FOR SAFETY AND SHE SAID THAT SHE WILL CALL THE BOTTLE CLEANER TO SEE IF HE CAN COME SIT WITH HER TO HELP "SETTLE HER DOWN".
--- NOTE | 2018-05-09 11:16 | NUR ---
PATIENT HAS TALKED TO BOTH FARSHAD AND PERLA ON THE PHONE AND IS GETTING UPSET WITH THEM THEY ARE TELLING HER THAT SHE IS IN THE HOSPITAL.
--- NOTE | 2018-05-09 11:20 | NUR ---
I CALLED [facility] TO ASK FOR SOME ATIVAN PER PATIENT REQUEST. SHE WILL PLACE SOME NEW ORDERS IN.
--- NOTE | 2018-05-09 11:30 | NUR ---
PATIENT IS PLACED IN A SOFT MARY BED. CALL LIGHT IS IN REACFH.
--- NOTE | 2018-05-09 17:16 | NUR ---
MARICEL FROM MRI HERE FOR SCREENING PAITENT. PATIENT IS UNABLE TO ANSWER QUESTIONS, MARICEL ALSO CALLED FARSHAD FOR QUESTIONS WHO IS UNABLE TO ANWER THEM. MARICEL STATES THAT RADIOLOGIST WILL NOT CLEAR PATIENT FOR MRI IF UNAABLE TO HAVE QUESTIONS ANSWERED. MARICEL STATES SHE WILL LET DR MCCONNELL KNOW THIS.
--- NOTE | 2018-05-09 18:34 | NUR ---
IV TO LEFT UPPER ARM IS INFILTRATING. CATH REMOVED WITH TIP INTACT. I ATTEMPTED X 2 STICKS TO RE-SITE. WILL ASSIST NIGHT NURSE IN RE-SITING.
--- NOTE | 2018-05-09 20:02 | NUR ---
RESUMED CARE OF PT, LYING IN BED RESPIRATIONS EVEN AND UNLABORED ON 5LPM VIA NC. MARY NET IN PLACE, REMOVED LEFT SIDE WHILE IN ROOM. STATES SHE HAS HAD A REALLY BAD HAIR DAY. 129 ST ON TELEMETRY. GALVEZ TO GRAVITY. CALL LIGHT IN REACH. SEE NURSE ASSESSMENT.
--- NOTE | 2018-05-09 22:33 | NUR ---
22 GAUGE TO LEFT FOREARM, IRON INFUSING. ASSISSTED TO BATHROOM, NO BOWEL MOVEMENT BUT GAS WAS PASSED. REMAINS DISORIENTED, INSISTENT THAT CARY AND PERLA ARE HERE AND SHE WANTS TO SEE THEM. WILL MONITOR CLOSELY
[2018-05-10] VITALS: BP 120/68
--- NOTE | 2018-05-10 02:45 | NUR ---
LYING IN BED, STARTING TO BECOME AGITATED. WANTING TO SMOKE AND GET UP. ASSISTED TO WHEELCHAIR AND BROUGHT TO NURSES STATION. DURING THIS TIME OBSERVED PLEASANTLY CONFUSED BEHAVIOR. VISUAL HALLUCINATIONS NOTED, STILL INSISTENT THAT SHE IS AT [facility] HOUSE.
--- NOTE | 2018-05-10 03:50 | NUR ---
ASSISSTED BACK TO ENCLOSURE BED, IV FLUIDS HOOKED BACK UP. 1300 ML EMPTIED FROM GALVEZ CATHETER. CALL LIGHT IN REACH. AND NET BED SECURED.
[2018-05-10 04:00] VITALS: BP 146/94
--- NOTE | 2018-05-10 04:22 | NUR ---
MEDICAL SOCIOLOGIST AT BEDSIDE TO OBTAIN VITALS, CALL LIGHT IN REACH. WILL CONTINUE WITH PLAN OF CARE.
[2018-05-10 06:32] LABS: CALC OSMOLALITY 276 mosm/kg (275-300); CARBON DIOXIDE 26.9 mmol/L (21.0-32.0); CHLORIDE - SERUM 101 mmol/L (98-107); CREATININE - SERUM 0.8 mg/dL (0.6-1.3); GLUCOSE 181 mg/dL (74-106); POTASSIUM - SERUM 3.4 mmol/L (3.5-5.1); SODIUM 137 mmol/L (136-145); eGFR NON AFRICAN AMERICAN 78 mL/min (90-120)
[2018-05-10 06:34] LABS: UREA NITROGEN 6 mg/dL (7-18)
[2018-05-10 06:59] LABS: BASOPHILS 0.2 % (0-2); EOSINOPHILS 0.6 % (0-7); HEMATOCRIT 27.5 % (36.0-48.0); HEMOGLOBIN 8.8 g/dL (12-16); IMMATURE GRANULOCYTES 0.4 % (0-5); MCH 25.7 pg (26.0-34.0); MCV 80.4 fL (80.0-100.0); MEAN PLATELET VOLUME 9.3 fL (7.4-10.4); MONOCYTES 11.6 % (2-11); NEUTROPHILS 64.2 % (40-80); PLATELET COUNT 446 10x3/uL (130-400); RBC 3.42 10x6/uL (4.00-5.40); RDW 14.9 % (11.5-14.5); WBC 13.8 10x3/uL (4.8-10.8)
--- NOTE | 2018-05-10 07:28 | NUR ---
ROUNDING DONE WITH PATIENT IN ENCLOUSRE BED RESTING ON RIGHT SIDE, EYES CLOSED, RESP ARE EVEN. GALVEZ CATH PATENT WITH CLEAR YELLOW URINE. ON HEART MONITOR SHOWING ST, HR 121. ON 5L PER NC. WILL MONITOR FOR SAFETY AND TRY A TRIAL OF BEING OUT OF BED TODAY.
[2018-05-10 09:21] VITALS: BP 137/81
--- NOTE | 2018-05-10 10:03 | NUR ---
TRIAL GIVEN TO PATIENT ON LEAVING HER OUT OF THE MARY BED. PATIENT IS IN THE RESTROOM PASSING FLATUS, CLEAN GOWN AND BED LINENS CHANGED. PATIENT IS STILL CONFUSED AND WANTING TO STAND UP AND WALK WHICH SHE IS VERY WOBBLY WITH GAIT. ASSISTED PATIENT BACK TO BED. I INFORMED PATIENT THAT I WOULD COME IN AND UNZIP AGAIN AND TRY AGAIN FOR SAFETY.
--- NOTE | 2018-05-10 12:40 | NUR ---
IV TO LEFT FA INFILTRATED. UNSUCCESSFUL X 1 STICK PER THIS NURSE. PATIENT HAS HAD MULTIPLY IV'S PAST TWO DAYS. I CALLED MENDEL URIAS RN VASCUALR NURSE FOR A MIDLINE OR IF SHE CAN STICK PATIENT. PATIENT IS SITTING ON SIDE OF BED EATING HER CLEAR LIQUIDS. I AM IN THE ROOM MONITORING HER AT THIS TIME. CONFUSED.
[2018-05-10 12:52] VITALS: BP 105/67
--- NOTE | 2018-05-10 12:59 | NUR ---
MENDEL URIAS RN TO RE-SITE TO RIGHT HAND PER 1 STICK WITH 22 G. OLD CATH IV REMOVED WITH CATH TIP INTACT.
[2018-05-10 16:12] VITALS: BP 108/67
[2018-05-10 19:00] VITALS: BP 116/72
--- NOTE | 2018-05-10 19:26 | NUR ---
PT AROUSES TO NURSE WALKING INTO ROOM. PT TALKING ABOUT RECEIVING IRON, PT IS IN MARY BED, ALERT TO NAME AND AND PRESIDENT, UNABLE TO ANSWER YEAR,MONTH,PLACE OR SITUATION. PT HAS NO S/S OF DISTRESS. DENIES ANY NEEDS. NO S/S OF DISTRESS. GALVEZ NOTED WITH YELLOW URINE. PT HAS NO S/S OF DISTRESS. DENIES ANY NEEDS. WILL CPOC
--- NOTE | 2018-05-10 22:19 | NUR ---
PT REPOSISTIONED, FIXED PHONE FOR PT, IV CONTINUES TO ALARM DUE TO OCCLUDED PIV IN WRIST. NS INFUSING AT 75, PT DRANK SPRITE, ASKING FOR COFFEE AND PT RECEIVED. PT HAS NO S/S OF DISTRESS. WILL CONTINUE TO MONITOR
--- NOTE | 2018-05-10 22:59 | NUR ---
PT COMPLAINS OF PSIN. NORCO GIVEN
[2018-05-11] VITALS: BP 141/83
--- NOTE | 2018-05-11 | NUR ---
PT RESTING, GOT PT UP TO RECLINER, PT OUT AT NURSING STATION DRINKING COFFEE AND WATER, PT HAS NO S/S OF DISTRESS. AAO X1, DENIES ANY NEEDS. WILL LET PT SIT UP FOR A WHILE AND ASSIST BACK TO BED WHEN SHE IS READY. WILL CPOC
--- NOTE | 2018-05-11 01:00 | NUR ---
PT PLACED BACK IN MARY BED, PT HAS NO S/S OF DISTRESS. DENIES ANY NEEDS. NO S/S OF DISTRESS. NOURISHMENT OFFERED. WILL CONTINUE TO MONITOR
--- NOTE | 2018-05-11 02:11 | NUR ---
PT ASLEEP, RESP EVEN AND UNLABORED 4.5L NC, PT HAS NO S/S OF DISTRESS. ENCLOSED MARY BED. WILL CONTINUE TO MONITOR
--- NOTE | 2018-05-11 02:35 | NUR ---
PT CALLED OUT FOR NURSE, ASKED FOR WATER AND SPRITE. GAVE PT NOURISHMENT AND ASSISTED WITH REPOSITONING. PT HAS NO S/S OF DISTRESS. DENIES ANY OTHER NEEDS. WILL CPOC
[2018-05-11 04:00] VITALS: BP 141/78
--- NOTE | 2018-05-11 04:21 | NUR ---
PT ASLEEP. AROUSES TO VERBAL STIMULI. VITALS DONE. PT ASSISTED WITH REPOSITIONING. NOURISHMENT OFFERED. PT ON 4.5L O2 NC. NO S/S OF DISTRESS. BEDLOW AND CALL LIGHT IN REACH. WILL CPOC
--- NOTE | 2018-05-11 05:57 | NUR ---
PT RESTING IN BED. MORNING MEDS GIVEN. NOURISHMENT OFFERED. ASSISTED WITH REPOSITIONING. PT IS AAO X1 NO S/S OF DISTRESS. WILL CPOC
[2018-05-11 06:25] LABS: ANION GAP 11.9 mmol/L (8-16); CALCIUM 8.5 mg/dL (8.5-10.1); CARBON DIOXIDE 27.2 mmol/L (21.0-32.0); CREATININE - SERUM 0.9 mg/dL (0.6-1.3); POTASSIUM - SERUM 4.1 mmol/L (3.5-5.1)
[2018-05-11 07:11] LABS: BASOPHILS 0.3 % (0-2); EOSINOPHILS 2.2 % (0-7); HEMATOCRIT 29.2 % (36.0-48.0); HEMOGLOBIN 9.3 g/dL (12-16); IMMATURE GRANULOCYTES 0.3 % (0-5); LYMPHOCYTES 28.4 % (15-50); MCH 25.5 pg (26.0-34.0); MCHC 31.8 g/dL (31.0-37.0); MCV 80.2 fL (80.0-100.0); MEAN PLATELET VOLUME 9.7 fL (7.4-10.4); MONOCYTES 13.4 % (2-11); NEUTROPHILS 55.4 % (40-80); PLATELET COUNT 423 10x3/uL (130-400); RBC 3.64 10x6/uL (4.00-5.40); RDW 15.1 % (11.5-14.5); WBC 15.2 10x3/uL (4.8-10.8)
--- NOTE | 2018-05-11 07:36 | NUR ---
PT RESTING IN BED. GAVE REPORT TO NEW NURSE. PT HAS NO S/S OF DISTRESS. BEDLOW AND ENCLOSURE BED INTACT. PT OFFERED NOURISHMENT. DENIES ANY NEEDS. WILL CPOC
--- NOTE | 2018-05-11 09:30 | NUR ---
ATE 100% CLEAR LIQUID DIET. SELF FEEDER. DID NOT TRY TO GET OOB DURING THIS TIME. WILL CONT. TO MONITOR.
--- NOTE | 2018-05-11 10:00 | EC ---
PATIENT:WESLEY GUADARRAMA DATE OF SERVICE: 05/08/18 SEX: F MEDICAL RECORD: [id number] DATE OF : 56 LOCATION:D. D.211 AGE OF PATIENT: 57 ADMISSION DATE: 05/08/18 REFERRING PHYSICIAN: INTERPRETING PHYSICIAN: NOLVIA IRBY MD ECHOCARDIOGRAM REPORT ECHO CHARGES 4 ECHO COMPLETE Date: 05/08/18 CLINICAL DIAGNOSIS: PERICARDIAL EFFUSION ECHOCARDIOGRAPHIC MEASUREMENTS (adult normal given) AC root (d.<3.7cm) cm LV Septum d (<1.2 cm> cm Valve Excursion cm LV Septum (systole) cm Left Atria (s.<4.0cm> cm LVPW d(<1.2cm) cm RV (d.<2.3cm) cm LVPW (sytole) cm LV diastole(<5.6CM) cm MV E-F(>70mm/sec) cm LV systole cm LVOT Diameter cm MV exc.(>10mm) cm Est.ejection fraction (50-75%) % DOPPLER: LVIT cm/sec A cm/sec E cm/sec LA cm/sec RVSP 21.0 mmHg LVOT cm/sec AOP1/2T m/s Asc. Ao cm/sec RVOT cm/sec RA cm/sec PA cm/sec AV Gradient Peak mmHg AV Mean mmHg AV Area cm MV Gradient Peak mmHg MV Mean mmHg MV Area cm COMMENTS: Adjunct Psychology Professor: Jc MOREIRA National Sales Associate: Nikolay Irby TAPE# PACS Pericardial Effusion Y DATE OF SERVICE: 05/09/2018 PROCEDURE: Echocardiogram. FINDINGS: 1. Left ventricular chamber size is within normal limits. Left ventricular systolic function is normal. Overall ejection fraction estimated at 55%. 2. Left atrium, right atrium, and right ventricle chamber sizes are within normal limits. 3. Valvular structures have normal structure and motion. ECHOCARDIOGRAM REPORT [id number] WESLEY GUADARRAMA 4. Doppler interrogation reveals trace tricuspid regurgitation, no other valvular insufficiency or stenosis and pulmonary systolic pressure is normal estimated at 20 mmHg. 5. Pericardial effusion is present. This is small, less than 1 cm, not hemodynamically compromising. No pleural effusion is present. 6. No evidence of left ventricular thrombus. TRANSINT:[id number] Voice Confirmation ID: [id number] DOCUMENT ID: [id number] NOLVIA IRBY MD at 1000 CC: [id number] DICTATION DATE: 05/09/18 1209 EYEWEAR MANUFACTURING SUPERVISOR: 05/09/18 1258 ADM IN [facility] [address] [place] [address]
[2018-05-11 10:34] VITALS: BP 125/80
[2018-05-11 13:06] VITALS: BP 130/83
--- NOTE | 2018-05-11 13:40 | NUR ---
UP TO CHAIR FOR BATH AND LINEN CHANGE WITH BUILDING RIGGER ASSIST. WILL CONT. PLAN OF CARE.
[2018-05-11 16:17] VITALS: BP 133/87
[2018-05-11 19:54] VITALS: BP 143/80
--- NOTE | 2018-05-11 20:33 | NUR ---
INITIAL ROUNDS AND ASSESSMENT. PT RESTING IN BED WITH NO DISTRESS. O2 @ 4.5L/NC. GALVEZ PATENT TO BEDSIDE DRAIN BAG. [address] ST PER TELEMETRY. MONITOR AND CPOC. FALL PRECAUTIONS/BED ALARM IN PLACE.
--- NOTE | 2018-05-11 22:23 | NUR ---
PT IN NET BED. ALERT/CONTINUALLY TALKING AND RAMBLING IN CONVERSATION. IV TO RIGHT HAND. ALL BED TIME MEDS GIVEN + REQUESTED PAIN PILL. FSBS 188, SLIDING SCALE HUMULIN REG 2 UNITS ADMINISTERED. MONITOR AND CPOC.
--- NOTE | 2018-05-12 01:37 | NUR ---
PT HAS PULLED OUT HER IV. CARE PROVIDED BY STAFF.
[2018-05-12 03:44] VITALS: BP 142/86
[2018-05-12 05:15] LABS: HEMATOCRIT 31.5 % (36.0-48.0); MCH 25.9 pg (26.0-34.0); MCHC 31.7 g/dL (31.0-37.0); MCV 81.6 fL (80.0-100.0); MEAN PLATELET VOLUME 9.6 fL (7.4-10.4); RBC 3.86 10x6/uL (4.00-5.40); RDW 15.8 % (11.5-14.5)
[2018-05-12 05:21] LABS: CALC OSMOLALITY 279 mosm/kg (275-300); CALCIUM 9.1 mg/dL (8.5-10.1); CARBON DIOXIDE 27.2 mmol/L (21.0-32.0); CHLORIDE - SERUM 103 mmol/L (98-107); CREATININE - SERUM 0.8 mg/dL (0.6-1.3); GLUCOSE 123 mg/dL (74-106); PLATELET COUNT 522 10x3/uL (130-400); POTASSIUM - SERUM 3.7 mmol/L (3.5-5.1); SODIUM 141 mmol/L (136-145); UREA NITROGEN 7 mg/dL (7-18); WBC 19.9 10x3/uL (4.8-10.8); eGFR NON AFRICAN AMERICAN 78 mL/min (90-120)
[2018-05-12 07:20] LABS: EOSINOPHILS 1 % (0-7); LYMPHOCYTES 36 % (15-50); MONOCYTES 3 % (2-11); NEUTROPHILS 59 % (40-80); PLATELET ESTIMATE INCREASED
--- NOTE | 2018-05-12 07:44 | NUR ---
ATTEMPTS X 3 TO RESITE IV WITH NO SUCCESS. REPORT GIVEN TO DAY NURSE.
--- NOTE | 2018-05-12 08:54 | NUR ---
IN MARY BED. SET UP FOR BRK. TELEMETRY ST. RESP UL ON . WILL CONT. PLAN OF CARE.
[2018-05-12 09:27] VITALS: BP 142/86
--- NOTE | 2018-05-12 10:30 | NUR ---
LININES CHANGED. REPOSITIONED IN BED FOR COMFORT. CALL LIGHT IN REACH.
[2018-05-12 11:42] VITALS: BP 114/77
[2018-05-12 15:57] VITALS: BP 149/87
[2018-05-12 20:00] VITALS: BP 151/89
--- NOTE | 2018-05-12 20:23 | NUR ---
INITIAL ROUNDS AND ASSESSMENT COMPLETED. ENCLOSURE BED IN PLACE FOR SAFETY. NO IV ACCESS. FSBS 150. PT ALERT AND CONFUSED WITH RESTLESSNESS. CONTINUE SAFETY IMPLEMENTATIONS.
--- NOTE | 2018-05-12 20:55 | NUR ---
BEDTIME MEDS ADMINISTERED.
--- NOTE | 2018-05-12 21:09 | NUR ---
OPENED ALL MEDS AND PT ASKED FOR COFFEE TO TAKE THEM WITH. ONCE COFFEE WAS PRESENTED, SHE ADAMANTLY REFUSED TO TAKE ALL MEDS, EVEN AFTER EACH MED AND ITS PURPOSE WAS EXPLAINED. RESECURED ENCLOSURE BED AND WILL TRY AGAIN LATER TO SEE IF PT WILL TAKE HER MEDS. PT ALSO REFUSING TO TAKE BREATHING TREATMENT AT THIS TIME. MONITOR AND CPOC.
--- NOTE | 2018-05-12 23:59 | NUR ---
PT STILL REFUSING MEDS. ENCLOSURE SECURE. MONITOR CLOSELY.
[2018-05-13 04:00] VITALS: BP 152/58
[2018-05-13 05:43] LABS: BASOPHILS 0.2 % (0-2); EOSINOPHILS 1.1 % (0-7); HEMATOCRIT 29.6 % (36.0-48.0); HEMOGLOBIN 9.5 g/dL (12-16); IMMATURE GRANULOCYTES 0.5 % (0-5); LYMPHOCYTES 15.7 % (15-50); MCH 25.8 pg (26.0-34.0); MCHC 32.1 g/dL (31.0-37.0); MCV 80.4 fL (80.0-100.0); MEAN PLATELET VOLUME 9.8 fL (7.4-10.4); MONOCYTES 9.6 % (2-11); NEUTROPHILS 72.9 % (40-80); PLATELET COUNT 420 10x3/uL (130-400); RBC 3.68 10x6/uL (4.00-5.40); RDW 16.3 % (11.5-14.5); WBC 17.2 10x3/uL (4.8-10.8)
[2018-05-13 06:03] LABS: CALC OSMOLALITY 276 mosm/kg (275-300); CALCIUM 8.7 mg/dL (8.5-10.1); CARBON DIOXIDE 25.5 mmol/L (21.0-32.0); CHLORIDE - SERUM 100 mmol/L (98-107); CREATININE - SERUM 0.8 mg/dL (0.6-1.3); GLUCOSE 134 mg/dL (74-106); POTASSIUM - SERUM 3.7 mmol/L (3.5-5.1); SODIUM 138 mmol/L (136-145); eGFR NON AFRICAN AMERICAN 78 mL/min (90-120)
[2018-05-13 06:13] LABS: UREA NITROGEN 10 mg/dL (7-18)
--- NOTE | 2018-05-13 06:49 | NUR ---
REPORT TO OFF GOING NURSE. PT RESTING WITH NO DISTRESS. MONITOR AND CPOC.
[2018-05-13 07:32] VITALS: BP 140/87
--- NOTE | 2018-05-13 08:00 | NUR ---
MARY ASHLEY RELEASED MEAL ASSISTANCE PER STAFF PT TOLERATING WELL
--- NOTE | 2018-05-13 10:12 | NUR ---
REELEASED MARY BED PT AWAKE AND CONFUSED NAD NOTED
[2018-05-13 12:47] VITALS: BP 106/70
[2018-05-13 15:32] VITALS: BP 113/69
[2018-05-13 19:00] VITALS: BP 130/78
--- NOTE | 2018-05-14 00:08 | NUR ---
PT TOOK BEDTIME MEDS ONE AT A TIME. CONVERSATION IS RAMBLING AND NONSENSICAL. FSBS 155. PT'S DINNER TRAY IS AT BEDSIDE AND HAS BARELY BEEN TOUCHED. WILL HOLD SLIDING SCALE TONIGHT.
[2018-05-14 00:15] VITALS: BP 133/74
--- NOTE | 2018-05-14 02:09 | NUR ---
RESTING IN ENCLOSURE BED. NO DISTRESS. CONTINUE TO MONITOR.
[2018-05-14 04:00] VITALS: BP 124/76
--- NOTE | 2018-05-14 06:41 | NUR ---
PT FEBRILE 102.2, MEDICATED WITH NORCO 1 TAB BY ORAL AND ENCOURAGING FLUIDS. MONITOR AND REPORT TO ONCOMING NURSE. HAVE CHECKED AND PT HAS HAD A UA W/ CULTURE AND BLOOD CULTURES X 2 SINCE ADMIT.
[2018-05-14 07:00] VITALS: BP 94/61
--- NOTE | 2018-05-14 07:30 | NUR ---
RECEIVED PT IN ENCLOSURE BED RESPONDS TO TACTILE STIMULI VERY DROWSEY HAD NORCO 5 EARLIER RESP UNLABORED VSS LAST FSBS 162 SKIN W/CD COLOR WNL WILL CONTINUE TO MONITOR
[2018-05-14 07:41] LABS: ALBUMIN 2.2 g/dL (3.4-5.0); ANION GAP 16.2 mmol/L (8-16); BILIRUBIN - TOTAL 0.47 mg/dL (0.2-1.3); CARBON DIOXIDE 25.5 mmol/L (21.0-32.0); CREATININE - SERUM 0.9 mg/dL (0.6-1.3); POTASSIUM - SERUM 3.7 mmol/L (3.5-5.1); PROTEIN - SERUM 7.9 g/dL (6.4-8.2)
[2018-05-14 07:48] LABS: BASOPHILS 0.3 % (0-2); EOSINOPHILS 1.4 % (0-7); HEMATOCRIT 30.5 % (36.0-48.0); HEMOGLOBIN 9.9 g/dL (12-16); IMMATURE GRANULOCYTES 0.5 % (0-5); LYMPHOCYTES 12.8 % (15-50); MCH 26.1 pg (26.0-34.0); MCHC 32.5 g/dL (31.0-37.0); MCV 80.3 fL (80.0-100.0); MEAN PLATELET VOLUME 9.6 fL (7.4-10.4); MONOCYTES 8.2 % (2-11); NEUTROPHILS 76.8 % (40-80); PLATELET COUNT 591 10x3/uL (130-400); RDW 16.5 % (11.5-14.5); WBC 18.4 10x3/uL (4.8-10.8)
--- NOTE | 2018-05-14 11:35 | NUR ---
FSBS 176 REGULAR INSULIN 2 UNITS GIVEN SQ ABD
[2018-05-14 13:02] VITALS: BP 110/74
--- NOTE | 2018-05-14 15:15 | NUR ---
Nutrition follow-up: Pt in annabelle bed for safety Diet: Moist mechanical soft with nectar thick liquids PO intake ~25% of meals; pt more alert and eating better today per nursing Labs reviewed Wt:123# RDN will order Magic cup, mighty shake with meals to increase kcal, protein intake. RDN following.
[2018-05-14 16:31] VITALS: BP 121/59
--- NOTE | 2018-05-14 16:31 | NUR ---
FSBS 135 NO COVERAGE REQUIRED
--- NOTE | 2018-05-14 16:34 | NUR ---
FSBS 238 REGULAR INSULIN 8 UNITS LT ARM
[2018-05-14 19:00] VITALS: BP 110/69
--- NOTE | 2018-05-14 19:20 | NUR ---
NAME AND DATE PLACED ON BOARD. NOURISHMENT OFFERED, PT REPOSITIONED. PT DENIES ANY NEEDS. AAO X1. PT IN VIEW OF NURSING STATION. FREQUENT CHECKS. WILL CPOC
--- NOTE | 2018-05-14 20:00 | NUR ---
PT RESTING IN BED. VITALS DONE. NOURISHMENT OFFERED. PT DENIES ANY NEEDS. REPOSITIONED PT. PT BEDLOW AND CALL LIGHT IN REACH. WILL CPOC
--- NOTE | 2018-05-14 22:32 | NUR ---
MEDS GIVEN IN PUDDING, PAIN MEDS GIVEN FOR COMPLAINT OF PAIN, 2 UNITS GIVEN FOR A FSBS OF 170. PT IS AAO X1. NO S/S OF DISTRESS. PT TAKES O2 OFF. MONITORING TO KEEP ON O2. PT GIVEN NOURISHMENT AND A SNACK. NO S/S OF DISTRESS. WILL CPOC
[2018-05-15] VITALS: BP 119/73
--- NOTE | 2018-05-15 00:05 | NUR ---
PT ASLEEP, RESP EVEN AND UNLABORED. 3L O2 NC. NO S/S OF DISTRESS. BEDLOW AND CALL LIGHT IN REACH. ENCLOSURE BED INTACT. PT ROOM BY NURSING STATION. WILL CPOC
--- NOTE | 2018-05-15 01:13 | NUR ---
PT ASLEEP, RESP EVEN AND UNLABORED. 3L O2 NC. PT HAS NO S/S OF DISTRESS. BED LOW AND CALL LIGHT IN REACH. WILL CPOC
--- NOTE | 2018-05-15 02:18 | NUR ---
PT ASLEEP. AROUSES TO VERBAL STIMULI, NO S/S OF DISTRESS. RESP EVEN AND UNLABORED. 3L O2. NOURISHMENT OFFERED. REPOSITIONED PT. PT BEDLOW AND ENCLOSURE BED INTACT. WILL CPOC
--- NOTE | 2018-05-15 03:58 | NUR ---
PT RESTING IN BED. NOURISHMENT OFFERED. PT HAS NO S/S OF DISTRESS. 3L O2 NC. PT WILL CALL FOR ASSIST WHEN NEEDED. PT IS AAO X2. WILL CPOC
[2018-05-15 04:00] VITALS: BP 106/68
--- NOTE | 2018-05-15 06:15 | NUR ---
PT ASLEEP. AROUSES TO PHYSICAL STIMULI THAN GOES BACK TO SLEEP, CHECKING FSBS, PT HAS O2 ON 3L NC. PT HAS NO S/S OF DISTRESS. JUST LETHARGIC. WILL CHECK SUGAR AND CONTINUE TO MONITOR
[2018-05-15 06:25] LABS: BASOPHILS 0.2 % (0-2); EOSINOPHILS 3.1 % (0-7); HEMATOCRIT 30.1 % (36.0-48.0); HEMOGLOBIN 9.7 g/dL (12-16); IMMATURE GRANULOCYTES 0.7 % (0-5); LYMPHOCYTES 22.2 % (15-50); MCH 26.1 pg (26.0-34.0); MCHC 32.2 g/dL (31.0-37.0); MCV 81.1 fL (80.0-100.0); MEAN PLATELET VOLUME 9.1 fL (7.4-10.4); MONOCYTES 12.1 % (2-11); NEUTROPHILS 61.7 % (40-80); PLATELET COUNT 565 10x3/uL (130-400); RBC 3.71 10x6/uL (4.00-5.40); RDW 17.2 % (11.5-14.5)
[2018-05-15 06:43] LABS: ALKALINE PHOSPHATASE 69 U/L (46-116); ALT (SGPT) 19 U/L (10-68); BILIRUBIN - TOTAL 0.27 mg/dL (0.2-1.3); CALC OSMOLALITY 285 mosm/kg (275-300); CALCIUM 9.1 mg/dL (8.5-10.1); CARBON DIOXIDE 29.1 mmol/L (21.0-32.0); CHLORIDE - SERUM 104 mmol/L (98-107); CREATININE - SERUM 0.7 mg/dL (0.6-1.3); GLUCOSE 152 mg/dL (74-106); POTASSIUM - SERUM 4.1 mmol/L (3.5-5.1); PROTEIN - SERUM 7.3 g/dL (6.4-8.2); SODIUM 142 mmol/L (136-145); UREA NITROGEN 12 mg/dL (7-18); eGFR NON AFRICAN AMERICAN > 90 mL/min (90-120)
[2018-05-15 08:08] VITALS: BP 108/67
[2018-05-15 12:02] VITALS: BP 114/72
--- NOTE | 2018-05-15 12:15 | NUR ---
TELEMETRY ST. RESP UL ON . REPOSITIONED IN MARY BED FOR LUNCH. WILL CONT. PLAN OF CARE.
[2018-05-15 16:14] VITALS: BP 116/72
--- NOTE | 2018-05-15 19:15 | NUR ---
PT RESTING IN BED. ONE SIDE OF THE MARY BED IS OPEN FOR PT TO EAT TRAY. WILL CONTINUE TO LEAVE OPEN AND EVALUATE NEED FOR ENCLOSURE BED. PT HAS NO S/S OF DISTRESS. TOLERATING WELL. HAS NOT TRIED TO GET OUT OF BED AT THIS TIME. WILL CONTINUE TO MONITOR
--- NOTE | 2018-05-15 19:25 | NUR ---
BEDSIDE REPORT RECEIVED. PT SITTING IN BED STILL EATING ON DINNER AND DRINKING WATER AND TEA THICKENED PER DIET. PT HAS NO S/S OF DISTRESS 3L O2 NC. PT BEDLOW AND CALL LIGHT IN REACH. PT IN VIEW OF NURSING STATION. NAME AND DATE PLACED ON BOARD. WILL CPOC
[2018-05-15 20:00] VITALS: BP 124/80
--- NOTE | 2018-05-15 20:03 | NUR ---
PT RESTING IN BED. NO S/S OF DISTRESS. STILL WANTS TO KEEP TRAY, HEATED UP FOOD. PT DENIES ANY OTHER NEEDS. NOURISHMENT IN REACH. 3L O2 NC. WILL CPOC
--- NOTE | 2018-05-15 20:21 | NUR ---
PT BED HAS BEEN OPEN SINCE BEFORE SHIFT CHANGE WITH TRAY FOR PT TO EAT. PT HAS TOLERATED WELL. HAS NOT TRIED TO GET OUT OF BED. WILL CONTINUE TO MONITOR NEED FOR ENCLOSURE BED. PT HAS NO S/S OF DISTRESS. WILL CPOC
--- NOTE | 2018-05-15 21:50 | NUR ---
PT REFUSES TO TAKE MEDICATIONS OR INSULINS, WILL NOT ALLOW NURSE TO HEAT UP FOOD. PULLED PT UP IN BED AND ATTEMPTED TO STRAIGHTEN SHEETS AND ASSIST WITH LEFT OVER DINNER. PT STATES NURSE IS MESSING UP MEDS, ACTING LIKE NURSE UPSET HER BUT WONT TELL NURSE HOW TO FIX IT OR WHAT NURSE DID. ATTEMPTED SEVERAL TIMES TO GIVE MEDICATIONS. WILL CONTINUE TO TRY. PT HAS NO S/S OF DISTRESS. WILL NOT KEEP ON O2. CONTINUING TO PLACE BACK ON. PT IS AAO X2, NAME AND PLACE BUT ARGUES ABOUT RECEIVING CARE. WILL CPOC
--- NOTE | 2018-05-15 22:16 | NUR ---
PT ENCLOSURE BED OPEN. PT DINNER TRAY IN FRONT OF PT. PT REFUSING MEDS. REFUSING INSULIN. PT NOT ATTEMPTING TO GET OUT OF BED AT THIS TIME. PT WILL NOT KEEP ON O2. PT DENIES ANY NEEDS. NO S/S OF DISTRESS. PT WILL CALL FOR ASSIST WHEN NEEDED. WILL CPOC
--- NOTE | 2018-05-15 23:37 | NUR ---
PT STATED SHE WILL TAKE MEDS IF I BRING THEM UNCRUSHED. BROUGHT MEDICATIONS, I PUT LOPRESSOR, ELIQUIS, KLONOPIN INFRONT OF PT. PT THAN ASKED FOR PAIN MEDICATION. GOT PAIN MEDICATION. AFTER APPOX 20 MINS OF GETTING PT EVERY THING SHE NEEDS AND PULLING PT UP AND TO HER LIKING PT THAN BEGAN SAYING SHE ALREADY TOOK MEDS, THAN WHEN I SHOWED HER SHE HASNT SHE SAID IM LYING ABOUT WHAT THEY ARE SHE WANTED TO SEE PACKAGES. SHOWED PT PACKAGES. PT THAN TOOK ELIQUIS AND LOPRESSOR. REFUSED TO TAKE ANY MORE. WASTED THE NORCO AND KLONOPIN WITNESSED BY RHODA BADILLO RN. RETURNED OTHER MEDS NOT TAKEN OR OPENED. PT HAS BOTH SIDES OF MARY BED OPEN. NOT TRYING TO GET OOB AT THIS TIME. REFUSES ALL CARE, REFUSING TO KEEP O2 IN NOSE. WONT ALLOW NURSE OR SENIOR MARKETING DATA ANALYST TO ASSIST WITH REPOSITONING. PT HAS NO S/S OF DISTRESS. BEDLOW AND CALL LIGHT IN REACH. WILL CPOC
[2018-05-16] VITALS: BP 129/84
--- NOTE | 2018-05-16 00:05 | NUR ---
PT IS ALERT. AAO X2. PT REFUSING CARE. WONT KEEP O2 ON, WONT REPOSITION, WONT LET NURSE GET TRASH OUT OF BED. PT IS STAYING IN BED AND SLIGHTLY REPOSITIONED SELF. PT HAS NOUISHMENT IN REACH. PLACED O2 BACK ON. PT HAS NO S/S OF DISTRESS. BOTH SIDES OF ENCLOSURE BED OPEN. ASSESSMENT OF NEED FOR RESTRAINT. WILL CPOC
--- NOTE | 2018-05-16 02:00 | NUR ---
PT SITTING UP IN BED. REFUSES REPOSTITIONING. PT LET NURSE REPOSITION PT SLIGHTLY. PLACED O2 BACK ONTO PT. PT HAS TRASH AND OTHER ITEMS IN BED. GOT 1-2 PICKED UP BEFORE PT COMPLAINED ABOUT NURSE TAKING HER THANGS. PT GIVEN NEW WATER TO DRINK. BEDLOW AND CALL LIGHT IN REACH. PT IN ENCLOSURE BED, BOTH SIDES UNZIPPED, LEFT SIDE UNZIPPED ALL SHIFT. RIGHT SIDE UNZIPPED. WILL CONTINUE TO MONITOR
--- NOTE | 2018-05-16 03:47 | NUR ---
PT STILL AWAKE, NO SLEEP, PT TRYING TO REFUSE VITALS. WENT AND TALKED TO PT REGARDING SEVERE NEED FOR VITALS AND PT AGREED. PT STILL RESISTING CARE. WONT KEEP O2 ON, BUT IS STAYING IN BED AND NOT ATTEMPTING TO GET OOB. YELLS TO LEAVE HER ALONE WHEN TRYING TO REPOSITION. PT STATES SHE HURTS. NURSE STATED A PAIN PILL IS AVALIBLE AND WAS OFFERED BUT YOU DECLINED. WOULD YOU LIKE ONE. PT STATED NO THAT WASNT A PAIN PILL YOU WHERE LYING TO ME. NURSE ASSURED PT NURSE IS NOT LYING. PT HAS NO S/S OF DISTRESS. BEDLOW AND CALL LIGHT IN REACH. WILL CONTINUE TO ATTEMPT CARE NEEDED. WILL NOT RENEW ENCLOSURE BED. ONCE HOUSE KEEPING IS IN WILL GET A REGULAR BED AND PLACE PT ON MARY ALARM. WILL CPOC
[2018-05-16 04:00] VITALS: BP 153/90
--- NOTE | 2018-05-16 05:36 | NUR ---
PT REFUSING PROTONIX THIS MORNING. EXPLAINED TO PT MEDICATION. PT STATES I AM LYING. PT HAS O2 ON 3L NC. PT HAS NO S/S OF DISTRESS. PT STILL IN MARY BED, BOTH SIDES UNZIPPED. WILL GET A REGULAR BED ONCE MILDRED FROM EMS COMES IN A 0800. PT BEDLOW AND CALL LIGHT IN REACH. CAN SEE PT FROM NURSING STATION. WILL CPOC
[2018-05-16 06:26] LABS: BASOPHILS 0.3 % (0-2); HEMATOCRIT 32.5 % (36.0-48.0); HEMOGLOBIN 10.4 g/dL (12-16); IMMATURE GRANULOCYTES 0.8 % (0-5); LYMPHOCYTES 30.6 % (15-50); MCV 81.3 fL (80.0-100.0); MEAN PLATELET VOLUME 9.5 fL (7.4-10.4); MONOCYTES 11.8 % (2-11); NEUTROPHILS 55.5 % (40-80); PLATELET COUNT 663 10x3/uL (130-400); RDW 17.5 % (11.5-14.5)
[2018-05-16 06:33] LABS: WBC 17.7 10x3/uL (4.8-10.8)
[2018-05-16 06:52] LABS: ALBUMIN 2.2 g/dL (3.4-5.0); ANION GAP 18.1 mmol/L (8-16); BILIRUBIN - TOTAL 0.37 mg/dL (0.2-1.3); CALCIUM 9.8 mg/dL (8.5-10.1); CARBON DIOXIDE 24.8 mmol/L (21.0-32.0); POTASSIUM - SERUM 3.9 mmol/L (3.5-5.1); PROTEIN - SERUM 8.2 g/dL (6.4-8.2)
[2018-05-16 06:54] LABS: CREATININE - SERUM 0.9 mg/dL (0.6-1.3)
--- NOTE | 2018-05-16 07:06 | NUR ---
REPORT GIVEN,.NURSE AWARE OF NEED TO REMOVE ENCLOSURE BED. BOTH ZIPPERS OPEN, PT GIVEN NOURISHMENT PT HS 3L O2 NC. NO S/S OF DISTRESS. WILL CPCOC
--- NOTE | 2018-05-16 07:37 | NUR ---
ASSISTED OUT OF POSY BED TO CHAIR. CHAIR ALRM ON. CALL LIGHT IN REACH. WILL CONT. PLAN OF CARE.
[2018-05-16 08:12] VITALS: BP 135/87
--- NOTE | 2018-05-16 09:15 | NUR ---
CONT TO SIT UP IN CHAIR WITHOUT TRYING TO GET UP BY HERSELF. COMPLETE BATH GIVEN BY KWAKU. MARY BED DCD AT THIS TIME.
[2018-05-16 11:52] VITALS: BP 126/80
[2018-05-16 12:19] LABS: ALPHA FETOPROTEIN -(TUMOR MRK) 3.4 ng/mL (0.0-8.3); CEA 358.9 ng/mL (0.0-4.7)
--- NOTE | 2018-05-16 12:34 | MORECARE ---
CASE MANAGEMENT DISCHARGE SUMMARY PATIENT: WESLEY GUADARRAMA UNIT: [id number] ADM DATE: 05/08/18 AGE: 57 : 56 SEX: F ROOM/BED: D.2114 AUTHOR: MARK BACON PHYSICIAN: REFERRING PHYSICIAN: NATHANIEL MCCONNELL MD DATE OF SERVICE: 05/16/18 Discharge Plan Patient Name: WESLEY GUADARRAMA [facility] [place] : 1960 Planned Disposition: Home with Home Health Anticipated Discharge Date: Discharge Date: Expected LOS: Initial Reviewer: [email or web address] Initial Review Date: 05/07/2018 Generated: 05/16/18 1:33 pm DCPIA - Discharge Planning Initial Assessment Updated by [email or web address]: Dharmesh Keith on 05/16/18 12:33 pm * Is the patient Alert and Oriented? Yes * How many steps to enter\exit or inside your home? NONE * PCP DR. SIN * Pharmacy [facility] * Preadmission Environment Home with Family * ADLs Independent * Equipment None * Other Equipment NO MEDICAL EQUIPMENT PROVIDER PREFERENCE * List name and contact numbers for known caregivers / representatives who currently or will assist patient after discharge: TIM ALAS, PERLA VISHAL, FRIEND, * Verbal permission to speak to the caregivers and representatives has been obtained from the patient. Yes * Community resources currently utilized Home Health * Please name any agencies selected above. [facility], * Additional services required to return to the preadmission environment? No * Can the patient safely return to the preadmission environment? Yes * Has this patient been hospitalized within the prior 30 days at any hospital? Yes Patient Name: WESLEY GUADARRAMA Page [phone] at 1234 All edits/amendments must be made on the electronic document DICTATION DATE: 05/16/18 1233 SALVAGE ENGINEERING TECHNICIAN: ABI 05/16/18 1233 RPT#: [id number] DC DATE: STATUS: ADM IN [facility] [address] [place] [address] END OF REPORT
--- NOTE | 2018-05-16 12:40 | MORECARE ---
CASE MANAGEMENT DISCHARGE SUMMARY PATIENT: WESLEY GUADARRAMA UNIT: [id number] ADM DATE: 05/08/18 AGE: 57 : 56 SEX: F ROOM/BED: D.7858 AUTHOR: ARLEEN,DOC PHYSICIAN: REFERRING PHYSICIAN: NATHANIEL MCCONNELL MD DATE OF SERVICE: 05/16/18 Discharge Plan Patient Name: WESLEY GUADARRAMA Facility: [facility]:[place] : 1960 Planned Disposition: Home with Home Health Anticipated Discharge Date: Discharge Date: Expected LOS: Initial Reviewer: [id number] Initial Review Date: 05/07/2018 Generated: 05/16/18 1:40 pm Comments DCP- Discharge Planning Updated by [id number]: Dharmesh Keith on 05/16/18 11:[address] Patient Name: WESLEY GUADARRAMA Admission Status: ER Accout number: [id number] Admission Date: 05-08-2018 : 1960 Admission Diagnosis:UNSPECIFIED ABDOMINAL PAIN Attending: NATHANIEL MCCONNELL Current LOS: 8 Anticipated DC Date: Planned Disposition: Home with Home Health Primary Insurance: MEDICARE A & B PLANNED EXTERNAL PROVIDER: [facility] Discharge Planning Comments: CM MET WITH PT IN ROOM TO DISCUSS DISCHARGE PLANNING AND NEEDS. PT REPORTS LIVING AT HOME INDEPENDENTLY WITH CARY DUMONT, AND PERLA OLSON. PT HAS NO MEDICAL EQUIPMENT AND NO PROVIDER PREFERENCE. PT REPORTS HAVING NURSING AND THERAPY WITH [facility]. CM DISCUSSED AVAILABILITY OF HOME HEALTH, REHAB SERVICES AND MEDICAL EQUIPMENT. PT THINKS HER SCHIZOPHRENIA IS BETTER NOW AND SHE DOES NOT NEED HELP FOR THAT. PT STATES THE LAST TIME SHE HAD HELP FOR SCHIZOPHRENIA, SHE WAS AT THE [facility] AND RECEIVED EXCELLENT CARE AND WOULD GO BACK THERE IF NEEDED. PT REPORTS PLAN TO GO HOME AT DISCHARGE, WOULD LIKE HER HOME HEALTH RESTARTED AND CARY OR PERLA WILL PICK HER UP FOR DISCHARGE HOME. [facility] [phone], SPOKE TO OFE WHO VERIFIED PT IS ACTIVE AND ON HOSPITAL HOLD FOR [facility], NURSING AND PHYSICAL THERAPY. CM TO FOLLOW AND ASSIST NEEDED. FOR DISCHARGE HOME AND RESUPTION OF HOME HEALTH SERVICES, NOTIFY [facility] AT [phone], FAX DISCHARGE INFORMATION TO [facility] AT [phone]. Motor Vehicle Field Representative: Dharmesh Keith DCPIA - Discharge Planning Initial Assessment Updated by [email or web address]: Dharmesh Keith on 05/16/18 12:33 pm * Is the patient Alert and Oriented? Yes * How many steps to enter\exit or inside your home? NONE * PCP DR. SIN * Pharmacy [facility] * Preadmission Environment Home with Family * ADLs Independent * Equipment None * Other Equipment NO MEDICAL EQUIPMENT PROVIDER PREFERENCE * List name and contact numbers for known caregivers / representatives who currently or will assist patient after discharge: TIM ALAS, PERLA HICKSN, FRIEND, * Verbal permission to speak to the caregivers and representatives has been obtained from the patient. Yes * Community resources currently utilized Home Health * Please name any agencies selected above. [facility], * Additional services required to return to the preadmission environment? No * Can the patient safely return to the preadmission environment? Yes * Has this patient been hospitalized within the prior 30 days at any hospital? Yes Last DP export: 05/16/18 11:34 a Patient Name: WESLEY GUADARRAMA Page [id number] at 1240 All edits/amendments must be made on the electronic document DICTATION DATE: 05/16/18 1240 AIRPORT MANAGER: ABI 05/16/18 1240 RPT#: [id number] MS DATE: STATUS: ADM IN [facility] [address] [place] [address] END OF REPORT
--- NOTE | 2018-05-16 13:08 | NUR ---
Nutrition follow-up: Diet: ADA mechanical soft with nectar thick liquids PO intake still ~25% of meals Pt refusing care at times Labs reviewed No new wt to assess RDN following.
--- NOTE | 2018-05-16 14:33 | NUR ---
AMBULATES WITH PT ASSIST AND BACK TO BED WITH BED ALARM ON.
[2018-05-16 15:31] VITALS: BP 122/76
--- NOTE | 2018-05-16 19:08 | NUR ---
PLACED O2 BACK ON PT. RESP IN ROOM TO GIVE TREATMENT. PLACED NAME AND DATE ON BOARD. INTRODUCED SELF AND ASKED PT IF FEELING BETTER. PT STATED I AM THANKS TO YOU. PT ALERT TO NAME AND ONLY. KNOWS SHE IS IN A HOSPITAL STATED [facility], BUT SAID [facility] YESTURDAY. PT UNABLE TO GIVEN YEAR,TIME OR WHY SHE IS HERE. PT SAID A PRAYER AND THAN DENIED ANY OTHER NEEDS. PT HAS NO S/S OF DISTRESS. BEDLOW AND CALL LIGHT IN REACH. MARY ALARM ON AND ACTIVE. PT IN VIEW OF NURSING STATION. WILL CPOC
[2018-05-16 20:00] VITALS: BP 134/81
--- NOTE | 2018-05-17 00:35 | NUR ---
PT DIAPHORETIC, CHECKED FSBS AND IT IS 190. PT REFUSES INSULIN. NURSE CHECKED TEMP 101.6 AXILLARY. GAVE PT TYLENOL AND PLACED ORDER FOR BLOOD CULTURES FOR TEMP OVER 101.6 REPOSITIONED PT, COUGHING AFTER DRINKING, GAVE PT SMALLER MEDS, MORE CRITICAL MEDS. DID NOT GIVE LARGER MEDICATIONS. PT WILL NOT TAKE THEM CRUSHED BUT HAS DIFFICULTY SWALLOWING. PT ON 3L O2 NC. PT HAS NO OTHER S/S OF DISTRESS. BEDLOW AND CALL LIGHT IN REACH. WILL CPOC
--- NOTE | 2018-05-17 01:00 | NUR ---
PT TEMP IS 100.5, PT STILL LETHARGIC, AROUSES TO VERBAL STIMULI AND WILL RESPOND TO QUESTIONS BUT WONT LOOK AT NURSE OR FOLLOW COMMANDS. PT REPOSITIONED, PT ASKING ABOUT PAIN MEDS STATES SHE HURTS. LET PT KNOW SHE HAD HER PAIN MED WELL TYLENOL. PT HAS NO S/S OF DISTRESS. GALVEZ NOTED WITH STRAWCOLORED URINE, CONCENTRATED. 3L O2 NC. NOURISHMENT OFFERED. PT DID NOT CHOKE OR COUGH AT THIS TIME. BEDLOW AND CALL LIGHT IN REACH. WILL CPOC
--- NOTE | 2018-05-17 03:20 | NUR ---
PT ASLEEP, RESP EVEN AND UNLABORED, SHALLOW. PT ON 3L O2 NC. PT AROUSES TO VERBAL STIMULI AND DENIES ANY NEEDS THAN GOES BACK TO SLEEP. THIS IS A CHANGE FROM THE LAST SHIFT WITH THIS PT. ALTHOUGH LAST SHIFT SHE STAYED UP ALL NIGHT AND WAS AGITATED AND RESTLESS. PT HAS NO S/S OF DISTRESS. DENIES ANY NEEDS. BEDLOW AND MARY ALARM ON AND ACTIVE. WILL CPOC
--- NOTE | 2018-05-17 06:20 | NUR ---
PT ASLEEP. RESP EVEN AND UNLABORED. SHALLOW. PT ON 3L O2 NC. NO S/S OF DISTRESS. BEDLOW AND CALL LIGHT IN REACH. MARY ALARM ON AND ACTIVE. WILL CPOC
[2018-05-17 07:51] LABS: ALBUMIN 2.1 g/dL (3.4-5.0); CALCIUM 9.5 mg/dL (8.5-10.1)
[2018-05-17 07:52] LABS: BASOPHILS 0.3 % (0-2); EOSINOPHILS 1.6 % (0-7); HEMATOCRIT 31.6 % (36.0-48.0); IMMATURE GRANULOCYTES 1.7 % (0-5); LYMPHOCYTES 22.9 % (15-50); MCHC 31.6 g/dL (31.0-37.0); MCV 82.1 fL (80.0-100.0); MEAN PLATELET VOLUME 9.2 fL (7.4-10.4); MONOCYTES 15.2 % (2-11); NEUTROPHILS 58.3 % (40-80); PLATELET COUNT 659 10x3/uL (130-400); RBC 3.85 10x6/uL (4.00-5.40); RDW 17.6 % (11.5-14.5)
[2018-05-17 08:10] LABS: ANION GAP 16.8 mmol/L (8-16); BILIRUBIN - TOTAL 0.33 mg/dL (0.2-1.3); CARBON DIOXIDE 23.2 mmol/L (21.0-32.0); CREATININE - SERUM 0.9 mg/dL (0.6-1.3); PROTEIN - SERUM 7.8 g/dL (6.4-8.2)
[2018-05-17 08:39] VITALS: BP 133/74
--- NOTE | 2018-05-17 09:57 | NUR ---
UP TO CHAIR WITH PT ASSIST. CHAIR ALARM ON. CALL LIGHT IN REACH. WILL CONT. PLAN OF CARE.
[2018-05-17 11:36] VITALS: BP 114/77
[2018-05-17 15:50] VITALS: BP 122/80
--- NOTE | 2018-05-17 16:05 | MORECARE ---
CASE MANAGEMENT DISCHARGE SUMMARY PATIENT: WESLEY GUADARRAMA UNIT: [id number] ADM DATE: 05/08/18 AGE: 57 : 56 SEX: F ROOM/BED: D.4024 AUTHOR: ARLEEN,DOC PHYSICIAN: REFERRING PHYSICIAN: NATHANIEL MCCONENLL MD DATE OF SERVICE: 05/17/18 Discharge Plan Patient Name: WESLEY GUADARRAMA Facility: [facility]:[place] : 1960 Planned Disposition: Home with Home Health Anticipated Discharge Date: Discharge Date: Expected LOS: Initial Reviewer: [id number] Initial Review Date: 05/07/2018 Generated: 05/17/18 5:04 pm Comments DCP- Discharge Planning Updated by [id number]: Dharmesh Keith on 05/16/18 11:[address] Patient Name: WESLEY GUADARRAMA Admission Status: ER Accout number: [id number] Admission Date: 05-08-2018 : 1960 Admission Diagnosis:UNSPECIFIED ABDOMINAL PAIN Attending: NATHANIEL MCCONNELL Current LOS: 8 Anticipated DC Date: Planned Disposition: Home with Home Health Primary Insurance: MEDICARE A & B PLANNED EXTERNAL PROVIDER: [facility] Discharge Planning Comments: CM MET WITH PT IN ROOM TO DISCUSS DISCHARGE PLANNING AND NEEDS. PT REPORTS LIVING AT HOME INDEPENDENTLY WITH CARY DUMONT, AND PERLA OLSON. PT HAS NO MEDICAL EQUIPMENT AND NO PROVIDER PREFERENCE. PT REPORTS HAVING NURSING AND THERAPY WITH [facility]. CM DISCUSSED AVAILABILITY OF HOME HEALTH, REHAB SERVICES AND MEDICAL EQUIPMENT. PT THINKS HER SCHIZOPHRENIA IS BETTER NOW AND SHE DOES NOT NEED HELP FOR THAT. PT STATES THE LAST TIME SHE HAD HELP FOR SCHIZOPHRENIA, SHE WAS AT THE [facility] AND RECEIVED EXCELLENT CARE AND WOULD GO BACK THERE IF NEEDED. PT REPORTS PLAN TO GO HOME AT DISCHARGE, WOULD LIKE HER HOME HEALTH RESTARTED AND CARY OR PERLA WILL PICK HER UP FOR DISCHARGE HOME. [phone], SPOKE TO OFE WHO VERIFIED PT IS ACTIVE AND ON HOSPITAL HOLD FOR [facility], NURSING AND PHYSICAL THERAPY. CM TO FOLLOW AND ASSIST NEEDED. FOR DISCHARGE HOME AND RESUPTION OF HOME HEALTH SERVICES, NOTIFY [facility] AT [phone], FAX DISCHARGE INFORMATION TO [facility] AT [phone]. Milling Supervisor: Dharmesh Keith DCPIA - Discharge Planning Initial Assessment Updated by [id number]: Dharmesh Keith on 05/16/18 12:33 pm * Is the patient Alert and Oriented? Yes * How many steps to enter\exit or inside your home? NONE * PCP DR. SIN * Pharmacy [facility] * Preadmission Environment Home with Family * ADLs Independent * Equipment None * Other Equipment NO MEDICAL EQUIPMENT PROVIDER PREFERENCE * List name and contact numbers for known caregivers / representatives who currently or will assist patient after discharge: TIM ALAS, PERLA HICKSN, FRIEND, * Verbal permission to speak to the caregivers and representatives has been obtained from the patient. Yes * Community resources currently utilized Home Health * Please name any agencies selected above. [facility], * Additional services required to return to the preadmission environment? No * Can the patient safely return to the preadmission environment? Yes * Has this patient been hospitalized within the prior 30 days at any hospital? Yes External Providers External Provider: [facility] Next Contact Date: 05/17/2018 Service Request Date: Service Type: Resolution: Reviewer: Comments: External Provider: CHRISTOPHER Arevalo Next Contact Date: 05/17/2018 Service Request Date: Service Type: Resolution: Reviewer: Comments: Last DP export: 05/16/18 11:40 a Patient Name: WESLEY GUADARRAMA Page [id number] at 1605 All edits/amendments must be made on the electronic document DICTATION DATE: 05/17/18 1604 DANCE ARTIST: ABI 05/17/18 1604 RPT#: [id number] DC DATE: STATUS: ADM IN [facility] [address] [place] [address] END OF REPORT
--- NOTE | 2018-05-17 16:29 | MORECARE ---
CASE MANAGEMENT DISCHARGE SUMMARY PATIENT: WESLEY GUADARRAMA UNIT: [id number] ADM DATE: 05/08/18 AGE: 57 : 56 SEX: F ROOM/BED: D.9831 AUTHOR: ARLEEN,DOC PHYSICIAN: REFERRING PHYSICIAN: NATHANIEL MCCONNELL MD DATE OF SERVICE: 05/17/18 Discharge Plan Patient Name: WESLEY GUADARRAMA Facility: [facility]:[place] : 1960 Planned Disposition: Snf Facility Anticipated Discharge Date: Discharge Date: Expected LOS: Initial Reviewer: [id number] Initial Review Date: 05/07/2018 Generated: 05/17/18 5:28 pm Comments DCP- Discharge Planning Updated by [id number]: Dharmesh Keith on 05/16/18 11:[address] Patient Name: WESLEY GUADARRAMA Admission Status: ER Accout number: [id number] Admission Date: 05-08-2018 : 1960 Admission Diagnosis:UNSPECIFIED ABDOMINAL PAIN Attending: NATHANIEL MCCONNELL Current LOS: 8 Anticipated DC Date: Planned Disposition: Home with Home Health Primary Insurance: MEDICARE A & B PLANNED EXTERNAL PROVIDER: [facility] Discharge Planning Comments: CM MET WITH PT IN ROOM TO DISCUSS DISCHARGE PLANNING AND NEEDS. PT REPORTS LIVING AT HOME INDEPENDENTLY WITH CARY DUMONT, AND PERLA OLSON. PT HAS NO MEDICAL EQUIPMENT AND NO PROVIDER PREFERENCE. PT REPORTS HAVING NURSING AND THERAPY WITH [facility]. CM DISCUSSED AVAILABILITY OF HOME HEALTH, REHAB SERVICES AND MEDICAL EQUIPMENT. PT THINKS HER SCHIZOPHRENIA IS BETTER NOW AND SHE DOES NOT NEED HELP FOR THAT. PT STATES THE LAST TIME SHE HAD HELP FOR SCHIZOPHRENIA, SHE WAS AT THE [facility] AND RECEIVED EXCELLENT CARE AND WOULD GO BACK THERE IF NEEDED. PT REPORTS PLAN TO GO HOME AT DISCHARGE, WOULD LIKE HER HOME HEALTH RESTARTED AND CARY DUNCAN WILL PICK HER UP FOR DISCHARGE HOME. [facility] [phone], SPOKE TO OFE WHO VERIFIED PT IS ACTIVE AND ON HOSPITAL HOLD FOR [facility], NURSING AND PHYSICAL THERAPY. CM TO FOLLOW AND ASSIST NEEDED. FOR DISCHARGE HOME AND RESUPTION OF HOME HEALTH SERVICES, NOTIFY [facility] AT [phone], FAX DISCHARGE INFORMATION TO [facility] AT [phone]. Rn Homecare: Dharmesh Keith DCPIA - Discharge Planning Initial Assessment Updated by [id number]: Dharmesh Keith on 05/16/18 12:33 pm * Is the patient Alert and Oriented? Yes * How many steps to enter\exit or inside your home? NONE * PCP DR. SIN * Pharmacy [facility] * Preadmission Environment Home with Family * ADLs Independent * Equipment None * Other Equipment NO MEDICAL EQUIPMENT PROVIDER PREFERENCE * List name and contact numbers for known caregivers / representatives who currently or will assist patient after discharge: TIM ALAS, PERLA HICKSN, FRIEND, * Verbal permission to speak to the caregivers and representatives has been obtained from the patient. Yes * Community resources currently utilized Home Health * Please name any agencies selected above. [facility], * Additional services required to return to the preadmission environment? No * Can the patient safely return to the preadmission environment? Yes * Has this patient been hospitalized within the prior 30 days at any hospital? Yes Coverage Notice Reviewer: [id number] - Dharmesh Keith Notice Issued Date-Time: 05/17/2018 15:00 Notice Type: Patient Choice Letter Notice Delivered To: Patient Relationship to Patient: Simulation Developer Name: Delivery Method: HAND - Hand Delivered Desire Days: Prior Verbal Notification: Recipient Understood Notice: Yes Recipient Signature: Yes Med Rec Note Co-signed by Attending: Coverage Notice Comment: JADENAXEL MASONPamela Shankar DP export: 05/17/18 3:04 p Patient Name: WESLEY GUADARRAMA Page 81982 at 7479 All edits/amendments must be made on the electronic document DICTATION DATE: 05/17/181627 MOLD TOOLER: ABI 05/17/181627 RPT#: [id number] [place] DATE: STATUS: ADM IN [facility] [address] [place] [address] END OF REPORT
--- NOTE | 2018-05-17 16:36 | MORECARE ---
CASE MANAGEMENT DISCHARGE SUMMARY PATIENT: WESLEY GUADARRAMA UNIT: [id number] ADM DATE: 05/08/18 AGE: 57 : 56 SEX: F ROOM/BED: D.7684 AUTHOR: ARLEEN,DOC PHYSICIAN: REFERRING PHYSICIAN: NATHANIEL MCCONNELL MD DATE OF SERVICE: 05/17/18 Discharge Plan Patient Name: WESLEY GUADARRAMA Facility: [facility]:[place] : 1960 Planned Disposition: Senior Living Facility Anticipated Discharge Date: Discharge Date: Expected LOS: Initial Reviewer: [id number] Initial Review Date: 05/07/2018 Generated: 05/17/18 5:36 pm Comments DCP- Discharge Planning Updated by [id number]: Dharmesh Escobar on 05/17/18 3:[address] Patient Name: WESLEY GUADARRAMA Admission Status: ER Accout number: [id number] Admission Date: 05-08-2018 : 1960 Admission Diagnosis:UNSPECIFIED ABDOMINAL PAIN Attending: NATHANIEL MCCONNELL Current LOS: 9 Anticipated DC Date: Planned Disposition: Senior Living Facility Primary Insurance: MEDICARE A & B PLANNED EXTERNAL PROVIDER: [facility], MEDICARE REHAB BED Discharge Planning Comments: CM RECEIVED ORDER FOR [facility] REHAB PLACEMENT, DISCUSSED WITH PT IN ROOM. PT REQUESTS REFERRAL TO [facility] TO BE CLOSER TO HER HOME. CHOICE SIGNED. MAXINE COMPLETED, SIGNATURES OBTAINED. CM FAXED MAXINE SCREENING AND SUPPORTING DOCUMENTS TO [facility] AT [phone]. CM FAXED REFERRAL TO [facility] FOR REHAB CONSIDERATION, . CM CALLED [facility], , SPOKE TO PERLA AND NOTIFIED OF REFERRAL. CM WAITING [facility] SCREENING AND DETERMINATION FOR [facility] FACILITY PLACEMENT; CM WAITING ADMISSION DETERMINATION FROM [facility]. DHARMESH ESCOBAR, CASE MANAGEMENT Data Processing Equipment Repairer: Dharmesh Escobar DCP- Discharge Planning Updated by [id number]: Dharmesh Escobar on 05/16/18 11:[address] Patient Name: WESLEY GUADARRAMA Admission Status: ER Accout number: [id number] Admission Date: 05-08-2018 : 1960 Admission Diagnosis:UNSPECIFIED ABDOMINAL PAIN Attending: NATHANIEL MCCONNELL Current LOS: 8 Anticipated DC Date: Planned Disposition: Home with Home Health Primary Insurance: MEDICARE A & B PLANNED EXTERNAL PROVIDER: [facility] Discharge Planning Comments: CM MET WITH PT IN ROOM TO DISCUSS DISCHARGE PLANNING AND NEEDS. PT REPORTS LIVING AT HOME INDEPENDENTLY WITH CARY DUMONT, AND LANDPERLA FORTE. PT HAS NO MEDICAL EQUIPMENT AND NO PROVIDER PREFERENCE. PT REPORTS HAVING NURSING AND THERAPY WITH [facility]. CM DISCUSSED AVAILABILITY OF HOME HEALTH, REHAB SERVICES AND MEDICAL EQUIPMENT. PT THINKS HER SCHIZOPHRENIA IS BETTER NOW AND SHE DOES NOT NEED HELP FOR THAT. PT STATES THE LAST TIME SHE HAD HELP FOR SCHIZOPHRENIA, SHE WAS AT THE [facility] AND RECEIVED EXCELLENT CARE AND WOULD GO BACK THERE IF NEEDED. PT REPORTS PLAN TO GO HOME AT DISCHARGE, WOULD LIKE HER HOME HEALTH RESTARTED AND CARY OR PERLA WILL PICK HER UP FOR DISCHARGE HOME. [phone], SPOKE TO OFE WHO VERIFIED PT IS ACTIVE AND ON HOSPITAL HOLD FOR [facility], NURSING AND PHYSICAL THERAPY. CM TO FOLLOW AND ASSIST NEEDED. FOR DISCHARGE HOME AND RESUPTION OF HOME HEALTH SERVICES, NOTIFY [facility] AT [phone], FAX DISCHARGE INFORMATION TO [facility] AT [phone]. Data Processing Equipment Repairer: Dharmesh Escobar DCPIA - Discharge Planning Initial Assessment Updated by [id number]: Dharmesh Escobar on 05/16/18 12:33 pm * Is the patient Alert and Oriented? Yes * How many steps to enter\exit or inside your home? NONE * PCP DR. SIN * Pharmacy [facility] * Preadmission Environment Home with Family * ADLs Independent * Equipment None * Other Equipment NO MEDICAL EQUIPMENT PROVIDER PREFERENCE * List name and contact numbers for known caregivers / representatives who currently or will assist patient after discharge: TIM ALAS, PERLA RODGERS, FRIEND, * Verbal permission to speak to the caregivers and representatives has been obtained from the patient. Yes * Community resources currently utilized Home Health * Please name any agencies selected above. [facility], * Additional services required to return to the preadmission environment? No * Can the patient safely return to the preadmission environment? Yes * Has this patient been hospitalized within the prior 30 days at any hospital? Yes Coverage Notice Reviewer: [id number] - Dharmesh Sagar Notice Issued Date-Time: 05/17/2018 15:00 Notice Type: Patient Choice Letter Notice Delivered To: Patient Relationship to Patient: Crude Oil Treater Name: Delivery Method: HAND - Hand Delivered Desire Days: Prior Verbal Notification: Recipient Understood Notice: Yes Recipient Signature: Yes Med Rec Note Co-signed by Attending: Coverage Notice Comment: ANTONI TEDDY Shankar DP export: 05/17/18 3:28 p Patient Name: WESLEY GUADARRAMA Page 86170 at 1636 All edits/amendments must be made on the electronic document DICTATION DATE: 05/17/181634 CODING SPEC: ABI 05/17/18 163 RPT#: [id number] DC DATE: STATUS: ADM IN [facility] [address] [place] [address] END OF REPORT
--- NOTE | 2018-05-17 20:01 | NUR ---
INITIAL ORUNDS COMPLETED AT 1909 HRS. PT RESTING WITH EYES CLOSED. RESP EVEN AND REGULAR. ASSESSMENT COMPLETED AT [address] PER CM HR 115. PT NOT REPSONSIVE TO VERBAL STIMULI. WHEN TURNED PT OPENED EYES AND STATED SHE WAS COMFORTABLE THE WAY SHE WAS. SUMAN. O2 2LNC. LUNGS DIMINISHED IN BASES BILAT. NO IV. GALVEZ DRAINING YELLOW URINE. SR UP X2, CALL LIGHT WITHIN REACH AND BED ALARM ON.
[2018-05-17 20:06] VITALS: BP 128/74
--- NOTE | 2018-05-17 22:58 | NUR ---
PT RFUSED MOST OF HER PM MEDS. BEDBATH DONE, BED LINENS CAHNGED. PT TOLERATED ACTIVITY WELL. PT CURRENTLY RESTING WITH EYES CLOSED. RESP EVEN AND REGULAR. SR UP X2, CALL LIGHT WITHIN REACH AND BED ALARM ON.
[2018-05-18 00:38] VITALS: BP 136/77
--- NOTE | 2018-05-18 01:40 | NUR ---
PT RESTING WITH EYES CLOSED. RESP EVEN AND REGULAR. SR UP X2, CALL LIGHT WITHIN REACH.
--- NOTE | 2018-05-18 04:15 | NUR ---
PT RESTING WITH EYES CLOSED. RESP EVEN AND REGULAR. SR UP X2, CALL LIGHT WITHIN REACH AND BED ALARM ON.
[2018-05-18 04:29] VITALS: BP 147/84
--- NOTE | 2018-05-18 05:54 | NUR ---
PT STASTED SHE WAS THRISTY BUT WOULD NOT SUCK ON STRAW OR SIP FORM CUP. 10CC VIA SYRINGE GIVEN AND PT SWALLOWED WELL BUT REFUSED ANY MORE JUICE OR AM PO MED. FSBS 203. 4 UNITS REG INSULIN GIVEN SUB-Q TO UPPER L ARM. VSS, WILL CONTINUE TO MONITOR. CALL LIGHT WITHIN REACH AND BED ALRM ON.
[2018-05-18 06:12] LABS: BASOPHILS 0.4 % (0-2); EOSINOPHILS 1.6 % (0-7); HEMATOCRIT 31.5 % (36.0-48.0); HEMOGLOBIN 10.1 g/dL (12-16); IMMATURE GRANULOCYTES 1.6 % (0-5); MCH 26.3 pg (26.0-34.0); MCHC 32.1 g/dL (31.0-37.0); MEAN PLATELET VOLUME 9.5 fL (7.4-10.4); MONOCYTES 10.9 % (2-11); NEUTROPHILS 64.5 % (40-80); PLATELET COUNT 697 10x3/uL (130-400); RBC 3.84 10x6/uL (4.00-5.40); RDW 17.8 % (11.5-14.5); WBC 15.1 10x3/uL (4.8-10.8)
[2018-05-18 06:33] LABS: ALBUMIN 2.1 g/dL (3.4-5.0); ALKALINE PHOSPHATASE 68 U/L (46-116); ALT (SGPT) 18 U/L (10-68); BILIRUBIN - TOTAL 0.38 mg/dL (0.2-1.3); CALC OSMOLALITY 282 mosm/kg (275-300); CALCIUM 9.5 mg/dL (8.5-10.1); CARBON DIOXIDE 24.8 mmol/L (21.0-32.0); CHLORIDE - SERUM 102 mmol/L (98-107); CREATININE - SERUM 0.7 mg/dL (0.6-1.3); GLUCOSE 162 mg/dL (74-106); PROTEIN - SERUM 7.8 g/dL (6.4-8.2); SODIUM 140 mmol/L (136-145); UREA NITROGEN 13 mg/dL (7-18); eGFR NON AFRICAN AMERICAN > 90 mL/min (90-120)
--- NOTE | 2018-05-18 07:30 | NUR ---
RESTING QUIETLY NAD NOTED WILL CONTINUE TO MONITOR
--- NOTE | 2018-05-18 09:00 | NUR ---
REFUSES AM MEDICATIONS
--- NOTE | 2018-05-18 10:30 | NUR ---
CONTINUES TO REFUSE AM MEDICATIONS 2 ATTEMPTS BY TWO DIFFERENT NURSES
[2018-05-18 10:50] VITALS: BP 137/87
--- NOTE | 2018-05-18 15:30 | NUR ---
PT REFUSES RISPERIDAL AND TO RESITE IV
--- NOTE | 2018-05-18 17:18 | NUR ---
PT ALLOWED STAFF TO DO FSBS AFTER MUCH DISCUSSION FSBS 146 PT REFUSES TO EAT OR TAKE ANY PO MEDS
[2018-05-18 21:32] VITALS: BP 142/95
--- NOTE | 2018-05-18 21:44 | NUR ---
INITIAL ROUNDS COMPLETED AT 1915 HRS. PT STATED SHE WAS HUNGRY. TRAY SET UP IN FRONT OF PT AND SHE BEGAN TO EAT. HOB UP 60 DEGREES. ASSESSMENT COMPLETED AT [address] PER CM HR 106. PT MORE ALERT AND COOPERATIVE THIS PM. LUNGS DIMINISHED IN BASES BILAT. CONTINUES TO BE CONFUSED AND HAVING VISUAL HALLUCINATIONS. PT KEEPS SAYING SHE IS SEEING A DOG IN THE HALLWAY. SANTIAGO. GALVEZ DRAINING YELLOW URINE. BED ALARM ON. TYLENOL 650 MG PO GIVEN IN PUDDING FOR C/O GENERALIZED DISCOMFORT. MISSED ZYPREXA DOSE ALSO GIVEN. PT STATED SHE WOULD TAKE PM MEDS. PM FSBS 199. 2 UNITS REG INSULIN GIVEN SUB-Q TO UPPER L ARM. PM MEDS GIVEN. PT CURRENTLY RESTING WITH EYES CLOSED. RESP EVEN AND REGULAR. O2 2LNC. SR UP X2, CALL LIGHT WITHIN REACH AND BED ALRM ON, DOOR OPENED.
[2018-05-18 23:55] VITALS: BP 127/78
--- NOTE | 2018-05-19 00:06 | NUR ---
PT RESTING WITH EYES CLOSED. RESP EVEN AND REGULAR. SR UP X2, CALL LIGHT WITHIN REACH AND BED ALARM ON.
--- NOTE | 2018-05-19 02:10 | NUR ---
PT RESTING WITH EYES CLOSED. RESP EVEN AND REGULAR. SR UP X2, CALL LIGHT WITHIN REACH AND BED ALARM ON.
[2018-05-19 03:55] VITALS: BP 128/78
--- NOTE | 2018-05-19 04:55 | NUR ---
90CC OF URINE IN GALVEZ. GALVEZ CATH ATTACHED TO STAT LOCK OUT WITH BULB INTACT. NO BLEEDING NOTED. BLADDER PALPATED AND NOT DISTENDED. WILL MONITOR OUTPUT. SR UP X2, CALL LIGHT WITHIN REACH AND BED ALARM ON.
--- NOTE | 2018-05-19 05:34 | NUR ---
VSS THROUGHOUT NIGHT. SR/ST PER CM. PT RESTED WELL DURING SHIFT. NEEDS MET; WILL CONTINUE TO MONITOR.
--- NOTE | 2018-05-19 07:10 | NUR ---
REPORT RECIEVED FROM LYFT DRIVER. PATIENT LAYING ON BACK WITH EYES CLOSED AND BREATHING EVENLY. SR UP X 2 BED IN LOW POSTION AND CALL LIGHT IN REACH. WILL CONTINUE WITH PLAN OF CARE.
[2018-05-19 07:25] LABS: BASOPHILS 0.3 % (0-2); EOSINOPHILS 1.2 % (0-7); HEMATOCRIT 32.4 % (36.0-48.0); HEMOGLOBIN 10.2 g/dL (12-16); IMMATURE GRANULOCYTES 1.3 % (0-5); LYMPHOCYTES 23.2 % (15-50); MCH 25.6 pg (26.0-34.0); MCHC 31.5 g/dL (31.0-37.0); MCV 81.4 fL (80.0-100.0); MEAN PLATELET VOLUME 9.4 fL (7.4-10.4); MONOCYTES 9.7 % (2-11); NEUTROPHILS 64.3 % (40-80); PLATELET COUNT 690 10x3/uL (130-400); RBC 3.98 10x6/uL (4.00-5.40); RDW 17.5 % (11.5-14.5); WBC 16.7 10x3/uL (4.8-10.8)
[2018-05-19 07:27] LABS: ALBUMIN 2.3 g/dL (3.4-5.0); ANION GAP 17.9 mmol/L (8-16); BILIRUBIN - TOTAL 0.49 mg/dL (0.2-1.3); CALCIUM 10.4 mg/dL (8.5-10.1); CARBON DIOXIDE 23.9 mmol/L (21.0-32.0); POTASSIUM - SERUM 3.8 mmol/L (3.5-5.1); PROTEIN - SERUM 8.2 g/dL (6.4-8.2)
[2018-05-19 07:28] LABS: CREATININE - SERUM 0.9 mg/dL (0.6-1.3)
--- NOTE | 2018-05-19 09:00 | NUR ---
ASSESSMENT COMPLETED. PATIENT AWAKENS EASILY TO VOICE. PATIENT IS NOT ORIENTED X 4. PATIENT DID TAKE ORAL MEDS WITHOUT DIFFICULTY. PATIENT DENIES ANY PAIN OR NEEDS. WILL CONTINUE TO MONITOR CLOSELY. SR UP X 2 BED IN LOW PSOTION AND CALL LIGHT IN REACH.
[2018-05-19 09:40] VITALS: BP 125/78
--- NOTE | 2018-05-19 13:00 | NUR ---
PATIENT LAYING ON RT SIDE WITH EYES CLOSED AND BREATHING EVENLY. WILL CONTINUE TO MONITOR.
[2018-05-19 14:30] VITALS: BP 127/60
--- NOTE | 2018-05-19 15:49 | NUR ---
PATIENT SLEEPING. AROUSES TO VOICE EASILY. REPOSITIONED FOR COMFORT. PATIENT DENIES ANY NEEDS OR PAIN. WILL CONTINUE TO MONITOR.
[2018-05-19 17:53] VITALS: BP 147/91
[2018-05-19 20:00] VITALS: BP 154/94
--- NOTE | 2018-05-19 20:00 | NUR ---
INITIAL ROUNDS AND ASSESSMENT. PT RESTING WITH NO DISTRESS. CALL LIGHT IN REACH. MONITOR AND CPOC.
--- NOTE | 2018-05-19 21:08 | NUR ---
BEDTIME MEDS GIVEN. PT REQUESTING HEATING PAD THAT DR RODRIGUEZ ORDERED. WILL PROVIDE.
--- NOTE | 2018-05-19 23:16 | NUR ---
BED TIME MEDS GIVEN. PT INITIALLY REFUSED, THEN TOOK THEM WHEN DR SHAIKH WAS OFFERED TO TAKE WITH THEM. PT INCONTINENT OF URINE. CARE PROVIDED. MONITOR AND CPOC.
[2018-05-20] VITALS: BP 137/84
--- NOTE | 2018-05-20 00:51 | NUR ---
PT RESTING IN BED WITH EYES CLOSED. RESPS EVEN/NONLABORED. [address] ST PER TELEMETRY. HAS NOW RECIEVED A COMPLETE BED BATH. IV ABT UP AND INFUSING.
[2018-05-20 04:00] VITALS: BP 122/78
[2018-05-20 06:50] LABS: HEMATOCRIT 32.3 % (36.0-48.0); HEMOGLOBIN 10.2 g/dL (12-16); MCH 25.8 pg (26.0-34.0); MCHC 31.6 g/dL (31.0-37.0); MCV 81.6 fL (80.0-100.0); MEAN PLATELET VOLUME 9.5 fL (7.4-10.4); PLATELET COUNT 685 10x3/uL (130-400); RBC 3.96 10x6/uL (4.00-5.40); RDW 17.5 % (11.5-14.5); WBC 16.6 10x3/uL (4.8-10.8)
[2018-05-20 07:23] LABS: ALBUMIN 2.3 g/dL (3.4-5.0); ALKALINE PHOSPHATASE 70 U/L (46-116); ALT (SGPT) 19 U/L (10-68); BILIRUBIN - TOTAL 0.49 mg/dL (0.2-1.3); CALC OSMOLALITY 287 mosm/kg (275-300); CALCIUM 10.7 mg/dL (8.5-10.1); CARBON DIOXIDE 23.9 mmol/L (21.0-32.0); CHLORIDE - SERUM 102 mmol/L (98-107); CREATININE - SERUM 0.7 mg/dL (0.6-1.3); PROTEIN - SERUM 8.2 g/dL (6.4-8.2); SODIUM 142 mmol/L (136-145); UREA NITROGEN 19 mg/dL (7-18); eGFR NON AFRICAN AMERICAN > 90 mL/min (90-120)
[2018-05-20 07:31] LABS: GLUCOSE 149 mg/dL (74-106)
--- NOTE | 2018-05-20 07:38 | MORECARE ---
CASE MANAGEMENT DISCHARGE SUMMARY PATIENT: WESLEY GUADARRAMA UNIT: [id number] ADM DATE: 05/08/18 AGE: 57 : 56 SEX: F ROOM/BED: D.9514 AUTHOR: ARLEEN,DOC PHYSICIAN: REFERRING PHYSICIAN: NATHANIEL MCCONNELL MD DATE OF SERVICE: 05/20/18 Discharge Plan Patient Name: WESLEY GUADARRAMA Facility: [facility]:[place] : 1960 Planned Disposition: Retirement Facility Anticipated Discharge Date: Discharge Date: Expected LOS: Initial Reviewer: [id number] Initial Review Date: 05/07/2018 Generated: 05/20/18 8:38 am Comments DCP- Discharge Planning Updated by [id number]: Dharmesh Escobar on 05/17/18 3:[address] Patient Name: WESLEY GUADARRAMA Admission Status: ER Accout number: [id number] Admission Date: 05-08-2018 : 1960 Admission Diagnosis:UNSPECIFIED ABDOMINAL PAIN Attending: NATHANIEL MCCONNELL Current LOS: 9 Anticipated DC Date: Planned Disposition: Retirement Facility Primary Insurance: MEDICARE A & B PLANNED EXTERNAL PROVIDER: [facility], MEDICARE REHAB BED Discharge Planning Comments: CM RECEIVED ORDER FOR LONG-TERM REHAB PLACEMENT, DISCUSSED WITH PT IN ROOM. PT REQUESTS REFERRAL TO [facility] TO BE CLOSER TO HER HOME. CHOICE SIGNED. MAXINE COMPLETED, SIGNATURES OBTAINED. CM FAXED MAXINE SCREENING AND SUPPORTING DOCUMENTS TO [facility] AT [phone]. CM FAXED REFERRAL TO [facility] FOR REHAB CONSIDERATION, . CM CALLED [facility], , SPOKE TO PERLA AND NOTIFIED OF REFERRAL. CM WAITING MAXINE SCREENING AND DETERMINATION FOR LONG-TERM FACILITY PLACEMENT; CM WAITING ADMISSION DETERMINATION FROM [facility]. DHARMESH ESCOBAR, CASE MANAGEMENT Financial Services Rep: Dharmesh Escobar DCP- Discharge Planning Updated by [id number]: Dharmesh Escobar on 05/16/18 11:[address] Patient Name: WESLEY GUADARRAMA Admission Status: ER Accout number: [id number] Admission Date: 05-08-2018 : 1960 Admission Diagnosis:UNSPECIFIED ABDOMINAL PAIN Attending: NATHANIEL MCCONNELL Current LOS: 8 Anticipated DC Date: Planned Disposition: Home with Home Health Primary Insurance: MEDICARE A & B PLANNED EXTERNAL PROVIDER: [facility] Discharge Planning Comments: CM MET WITH PT IN ROOM TO DISCUSS DISCHARGE PLANNING AND NEEDS. PT REPORTS LIVING AT HOME INDEPENDENTLY WITH CARY DUMONT, AND LANDPERLA FORTE. PT HAS NO MEDICAL EQUIPMENT AND NO PROVIDER PREFERENCE. PT REPORTS HAVING NURSING AND THERAPY WITH [facility]. CM DISCUSSED AVAILABILITY OF HOME HEALTH, REHAB SERVICES AND MEDICAL EQUIPMENT. PT THINKS HER SCHIZOPHRENIA IS BETTER NOW AND SHE DOES NOT NEED HELP FOR THAT. PT STATES THE LAST TIME SHE HAD HELP FOR SCHIZOPHRENIA, SHE WAS AT THE [facility] AND RECEIVED EXCELLENT CARE AND WOULD GO BACK THERE IF NEEDED. PT REPORTS PLAN TO GO HOME AT DISCHARGE, WOULD LIKE HER HOME HEALTH RESTARTED AND CARY OR PERLA WILL PICK HER UP FOR DISCHARGE HOME. [phone], SPOKE TO OFE WHO VERIFIED PT IS ACTIVE AND ON HOSPITAL HOLD FOR [facility] SERVICES, NURSING AND PHYSICAL THERAPY. CM TO FOLLOW AND ASSIST NEEDED. FOR DISCHARGE HOME AND RESUPTION OF HOME HEALTH SERVICES, NOTIFY [facility] AT [phone], FAX DISCHARGE INFORMATION TO [facility] AT [phone]. Financial Services Rep: Dharmesh Escobar DCPIA - Discharge Planning Initial Assessment Updated by [id number]: Dharmesh Escobar on 05/16/18 12:33 pm * Is the patient Alert and Oriented? Yes * How many steps to enter\exit or inside your home? NONE * PCP DR. SIN * Pharmacy [facility] * Preadmission Environment Home with Family * ADLs Independent * Equipment None * Other Equipment NO MEDICAL EQUIPMENT PROVIDER PREFERENCE * List name and contact numbers for known caregivers / representatives who currently or will assist patient after discharge: TIM ALAS, PERLA RODGERS, FRIEND, * Verbal permission to speak to the caregivers and representatives has been obtained from the patient. Yes * Community resources currently utilized Home Health * Please name any agencies selected above. [facility], * Additional services required to return to the preadmission environment? No * Can the patient safely return to the preadmission environment? Yes * Has this patient been hospitalized within the prior 30 days at any hospital? Yes Coverage Notice Reviewer: [id number] - Dharmesh Sagar Notice Issued Date-Time: 05/17/2018 15:00 Notice Type: Patient Choice Letter Notice Delivered To: Patient Relationship to Patient: Supervisor Rice Milling Name: Delivery Method: HAND - Hand Delivered Desire Days: Prior Verbal Notification: Recipient Understood Notice: Yes Recipient Signature: Yes Med Rec Note Co-signed by Attending: Coverage Notice Comment: ANTONI TEDDY Shankar DP export: 05/17/18 3:36 p Patient Name: WESLEY GUADARRAMA Page 60078 at 0738 All edits/amendments must be made on the electronic document DICTATION DATE: 05/20/18736 OPERATING TABLE ASSEMBLER: ABI 05/20/18736 RPT#: [id number] DC DATE: STATUS: ADM IN [facility] [address] [place] [address] END OF REPORT
[2018-05-20 08:08] LABS: ANISOCYTOSIS OCC; LYMPHOCYTES 18 % (15-50); MONOCYTES 9 % (2-11); NEUTROPHILS 72 % (40-80); PLATELET ESTIMATE INCREASED
[2018-05-20 08:37] VITALS: BP 130/79
--- NOTE | 2018-05-20 09:30 | NUR ---
UP SOB WITH PT ASSIST.
--- NOTE | 2018-05-20 10:41 | MORECARE ---
CASE MANAGEMENT DISCHARGE SUMMARY PATIENT: WESLEY GUADARRAMA UNIT: [id number] ADM DATE: 05/08/18 AGE: 57 : 56 SEX: F ROOM/BED: D.5884 AUTHOR: ARLEEN,DOC PHYSICIAN: REFERRING PHYSICIAN: NATHANIEL MCCONNELL MD DATE OF SERVICE: 05/20/18 Discharge Plan Patient Name: WESLEY GUADARRAMA Facility: [facility]:[place] : 1960 Planned Disposition: Correction Facility Anticipated Discharge Date: Discharge Date: Expected LOS: Initial Reviewer: [id number] Initial Review Date: 05/07/2018 Generated: 05/20/18 11:41 am Comments DCP- Discharge Planning Updated by [id number]: Dharmesh Escobar on 05/20/18 9:[address] Patient Name: WESLEY GUADARRAMA Encounter No: [id number] : 1960 Primary Insurance: MEDICARE A & B Anticipated DC Date: Planned Disposition: Correction Facility External Planned Provider: [facility], MEDICARE REHAB BED Discharge Planning Comments: FAX TO [employer] [facility] HAD FAILED ON SUNDAY AFTERNOON. CM REFAXED MAXINE SCREENING AND SUPPORTING DOCUMENTS TO [facility] AT [phone]. CM FAXED REFERRAL UPDATE TO [facility] FOR REHAB CONSIDERATION VIA [employer] AT [phone]. CM WAITING MAXINE SCREENING AND DETERMINATION FOR NURSING HOME FACILITY PLACEMENT; CM WAITING ADMISSION DETERMINATION FROM [facility] AND REHAB. GENEVIEVE FLAHERTY DCP- Discharge Planning Updated by [id number]: Dharmesh Escobar on 05/17/18 3:[address] Patient Name: WESLEY GUADARRAMA Admission Status: ER Accout number: [id number] Admission Date: 05-08-2018 : 1960 Admission Diagnosis:UNSPECIFIED ABDOMINAL PAIN Attending: NATHANIEL MCCONNELL Current LOS: 9 Anticipated DC Date: Planned Disposition: Correction Facility Primary Insurance: MEDICARE A & B PLANNED EXTERNAL PROVIDER: [facility], MEDICARE REHAB BED Discharge Planning Comments: CM RECEIVED ORDER FOR NURSING HOME REHAB PLACEMENT, DISCUSSED WITH PT IN ROOM. PT REQUESTS REFERRAL TO [facility] TO BE CLOSER TO HER HOME. CHOICE SIGNED. MAXINE COMPLETED, SIGNATURES OBTAINED. CM FAXED MAXINE SCREENING AND SUPPORTING DOCUMENTS TO [facility] AT [phone]. CM FAXED REFERRAL TO [facility] FOR REHAB CONSIDERATION, . CM CALLED [facility], , SPOKE TO PERLA AND NOTIFIED OF REFERRAL. CM WAITING MAXINE SCREENING AND DETERMINATION FOR NURSING HOME FACILITY PLACEMENT; CM WAITING ADMISSION DETERMINATION FROM [facility]. DHARMESH ESCOBAR, CASE MANAGEMENT Pilot Plant Technician: Dharmesh Escobar DCP- Discharge Planning Updated by [id number]: Dharmesh Escobar on 05/16/18 11:[address] Patient Name: WESLEY GUADARRAMA Admission Status: ER Accout number: [id number] Admission Date: 05-08-2018 : 1960 Admission Diagnosis:UNSPECIFIED ABDOMINAL PAIN Attending: NATHANIEL MCCONNELL Current LOS: 8 Anticipated DC Date: Planned Disposition: Home with Home Health Primary Insurance: MEDICARE A & B PLANNED EXTERNAL PROVIDER: [facility] Discharge Planning Comments: CM MET WITH PT IN ROOM TO DISCUSS DISCHARGE PLANNING AND NEEDS. PT REPORTS LIVING AT HOME INDEPENDENTLY WITH CARY DUMONT, AND PERLA OLSON. PT HAS NO MEDICAL EQUIPMENT AND NO PROVIDER PREFERENCE. PT REPORTS HAVING NURSING AND THERAPY WITH [facility]. CM DISCUSSED AVAILABILITY OF HOME HEALTH, REHAB SERVICES AND MEDICAL EQUIPMENT. PT THINKS HER SCHIZOPHRENIA IS BETTER NOW AND SHE DOES NOT NEED HELP FOR THAT. PT STATES THE LAST TIME SHE HAD HELP FOR SCHIZOPHRENIA, SHE WAS AT THE [facility] AND RECEIVED EXCELLENT CARE AND WOULD GO BACK THERE IF NEEDED. PT REPORTS PLAN TO GO HOME AT DISCHARGE, WOULD LIKE HER HOME HEALTH RESTARTED AND CARY OR PERLA WILL PICK HER UP FOR DISCHARGE HOME. [facility] [phone], SPOKE TO OFE WHO VERIFIED PT IS ACTIVE AND ON HOSPITAL HOLD FOR [facility] SERVICES, NURSING AND PHYSICAL THERAPY. CM TO FOLLOW AND ASSIST NEEDED. FOR DISCHARGE HOME AND RESUPTION OF HOME HEALTH SERVICES, NOTIFY [facility] AT [phone], FAX DISCHARGE INFORMATION TO [facility] AT [phone]. Pilot Plant Technician: Dharmesh Escobar DCPIA - Discharge Planning Initial Assessment Updated by [id number]: Dharmesh Escobar on 05/16/18 12:33 pm * Is the patient Alert and Oriented? Yes * How many steps to enter\exit or inside your home? NONE * PCP DR. SIN * Pharmacy [facility] * Preadmission Environment Home with Family * ADLs Independent * Equipment None * Other Equipment NO MEDICAL EQUIPMENT PROVIDER PREFERENCE * List name and contact numbers for known caregivers / representatives who currently or will assist patient after discharge: CARY PAINTINGMELLOD, PERLA RODGERS, FRIEND, * Verbal permission to speak to the caregivers and representatives has been obtained from the patient. Yes * Community resources currently utilized Home Health * Please name any agencies selected above. [facility], * Additional services required to return to the preadmission environment? No * Can the patient safely return to the preadmission environment? Yes * Has this patient been hospitalized within the prior 30 days at any hospital? Yes Coverage Notice Reviewer: [id number] Zamzam Escobar Notice Issued Date-Time: 05/17/2018 15:00 Notice Type: Patient Choice Letter Notice Delivered To: Patient Relationship to Patient: Airport Attendant Name: Delivery Method: HAND - Hand Delivered Desire Days: Prior Verbal Notification: Recipient Understood Notice: Yes Recipient Signature: Yes Med Rec Note Co-signed by Attending: Coverage Notice Comment: ANTONI Shankar DP export: 05/20/18 6:38 a Patient Name: WESLEY GUADARRAMA Page 23690 at 1041 All edits/amendments must be made on the electronic document DICTATION DATE: 05/20/18 1040 INSPECTOR MATERIALS AND PROCESSES: ABI 05/20/18 1040 RPT#: [id number] DC DATE: STATUS: ADM IN [facility] [address] [place] [address] END OF REPORT
[2018-05-20 11:28] VITALS: BP 118/74
--- NOTE | 2018-05-20 11:40 | NUR ---
OT NOTE: PT VERY LETHARGIC AND LESS VERBALLY RESPONSIVE TODAY; BED MOB WITH MOD ASSIST; STATIC SITTING BALANCE WITH ASSIST; AMB TO BATHROOM WITH MIN/MOD ASSIST AND USE OF RW; PT STATED THAT SHE NEEDED TO GO TO BATHROOM BUT COULDNT. ALLOWED PT TO STAY ON TOILET FOR APPROX 5 MIN...DID NOT HAVE SUCCESS WITH BM OR URINATION. BACK TO BED WITH MIN/MOD ASSIST. REPOSITIONED IN BED. DIMITRI GAMBLE, OTR/L
--- NOTE | 2018-05-20 12:16 | NUR ---
I&O CATH DONE FOR URINE CULTURE. 300CC URINE OP NOTED.
--- NOTE | 2018-05-20 12:37 | NUR ---
REFUSES TO EAT LUNCH. REPOSITIONED FOR COMFORT. CALL LIGHT IN REACH.
--- NOTE | 2018-05-20 14:32 | NUR ---
IV STARTED BY EMNDEL REA WITH 22 GAUGE CATH TO RIGHT ARM. LINE IS PATENT.
--- NOTE | 2018-05-20 14:46 | NUR ---
Nutrition follow-up: Diet: Mechanical soft with thin liquids Speech deferred today due to pt very lethargic PO intake has been poor Labs reviewed No new wt Pt will need nutrition support started due to not meeting estimated energy needs with po intake at this time. RDN following.
[2018-05-20 15:43] VITALS: BP 133/83
--- NOTE | 2018-05-20 15:52 | MORECARE ---
CASE MANAGEMENT DISCHARGE SUMMARY PATIENT: WESLEY GUADARRAMA UNIT: [id number] ADM DATE: 05/08/18 AGE: 57 : 56 SEX: F ROOM/BED: D.3004 AUTHOR: ARLEEN,DOC PHYSICIAN: REFERRING PHYSICIAN: NATHANIEL MCCONNELL MD DATE OF SERVICE: 05/20/18 Discharge Plan Patient Name: WESLEY GUADARRAMA Facility: [facility]:[place] : 1960 Planned Disposition: Intermediate Facility Anticipated Discharge Date: Discharge Date: Expected LOS: Initial Reviewer: [id number] Initial Review Date: 05/07/2018 Generated: 05/20/18 4:52 pm Comments DCP- Discharge Planning Updated by [id number]: Dharmesh Escobar on 05/20/18 2:[address] Patient Name: WESLEY GUADARRAMA Encounter No: [id number] : 1960 Primary Insurance: MEDICARE A & B Anticipated DC Date: Planned Disposition: Intermediate Facility External Planned Provider: [facility], MEDICARE REHAB BED Discharge Planning Comments: FAX TO [employer] HAD FAILED ON SUNDAY AFTERNOON. CM REFAXED MAXINE SCREENING AND SUPPORTING DOCUMENTS TO [facility] AT [phone]. CM FAXED REFERRAL UPDATE TO [facility] FOR REHAB CONSIDERATION VIA [employer] AT [phone]. CM WAITING MAX[facility] SCREENING AND DETERMINATION FOR [facility] FACILITY PLACEMENT; CM WAITING ADMISSION DETERMINATION FROM [facility] AND REH[facility]. DHARMESH ESCOBAR CASE MANAGEMENT Appended by Dharmesh Escobar on 05/20/2018 15:47 NURSERY SCHOOL TEACHER: CM RECEIVED MAXINE EXEMPTION TO ADMIT TO REHAB IN [facility]. CM SPOKE TO ADWOA OF [facility] WHO MET WITH PT AND WILL HAVE FACILITY CONTINUE TO SCREEN FOR ADMISSION. CM FAXED MAXINE EXEMPTION TO [facility] VIA [employer] AT [phone]. CM WAITING ADMISSION DETERMINATION FROM [facility]. GENEVIEVE FLAHERTY DCP- Discharge Planning Updated by [id number]: Dharmesh Escobar on 05/17/18 3:[address] Patient Name: WESLEY GUADARRAMA Admission Status: ER Accout number: [id number] Admission Date: 05-08-2018 : 1960 Admission Diagnosis:UNSPECIFIED ABDOMINAL PAIN Attending: NATHANIEL MCCONNELL Current LOS: 9 Anticipated DC Date: Planned Disposition: Intermediate Facility Primary Insurance: MEDICARE A & B PLANNED EXTERNAL PROVIDER: [facility] Discharge Planning Comments: CM RECEIVED ORDER FOR [facility] RE[facility]AB PLACEMENT, DISCUSSED WITH PT IN ROOM. PT REQUESTS REFERRAL TO [facility] TO BE CLOSER TO HER HOME. CHOICE SIGNED. MAXINE COMPLETED, SIGNATURES OBTAINED. CM FAXED MAXINE SCREENING AND SUPPORTING DOCUMENTS TO [employer] AT [phone]. CM FAXED REFERRAL TO [facility] FOR REHAB CONSIDERATION, . CM CALLED [facility], , SPOKE TO PERLA AND NOTIFIED OF REFERRAL. CM WAITING MAXINE SCREENING AND DETERMINATION FOR [facility] FACILITY PLACEMENT; CM WAITING ADMISSION DETERMINATION FROM [facility]. DHARMESH ESCOBAR, CASE MANAGEMENT Manager Club: Dharmesh Escobar DCP- Discharge Planning Updated by [id number]: Dharmesh Escobar on 05/16/18 11:[address] Patient Name: WESLEY GUADARRAMA Admission Status: ER Accout number: [id number] Admission Date: 05-08-2018 : 1960 Admission Diagnosis:UNSPECIFIED ABDOMINAL PAIN Attending: NATHANIEL MCCONNELL Current LOS: 8 Anticipated DC Date: Planned Disposition: Home with Home Health Primary Insurance: MEDICARE A & B PLANNED EXTERNAL PROVIDER: [facility] Discharge Planning Comments: CM MET WITH PT IN ROOM TO DISCUSS DISCHARGE PLANNING AND NEEDS. PT REPORTS LIVING AT HOME INDEPENDENTLY WITH CARY DUMONT, AND PERLA OLSON. PT HAS NO MEDICAL EQUIPMENT AND NO PROVIDER PREFERENCE. PT REPORTS HAVING NURSING AND THERAPY WITH [facility]. CM DISCUSSED AVAILABILITY OF HOME HEALTH, REHAB SERVICES AND MEDICAL EQUIPMENT. PT THINKS HER SCHIZOPHRENIA IS BETTER NOW AND SHE DOES NOT NEED HELP FOR THAT. PT STATES THE LAST TIME SHE HAD HELP FOR SCHIZOPHRENIA, SHE WAS AT THE [facility] AND RECEIVED EXCELLENT CARE AND WOULD GO BACK THERE IF NEEDED. PT REPORTS PLAN TO GO HOME AT DISCHARGE, WOULD LIKE HER HOME HEALTH RESTARTED AND CARY OR PERLA WILL PICK HER UP FOR DISCHARGE HOME. [facility] [phone], SPOKE TO OFE WHO VERIFIED PT IS ACTIVE AND ON HOSPITAL HOLD FOR [facility], NURSING AND PHYSICAL THERAPY. CM TO FOLLOW AND ASSIST NEEDED. FOR DISCHARGE HOME AND RESUPTION OF HOME HEALTH SERVICES, NOTIFY [facility] AT [phone], FAX DISCHARGE INFORMATION TO [facility] AT [phone]. Manager Club: Dharmesh Escobar DCPIA - Discharge Planning Initial Assessment Updated by [id number]: Dharmesh Escobar on 05/16/18 12:33 pm * Is the patient Alert and Oriented? Yes * How many steps to enter\exit or inside your home? NONE * PCP DR. SIN * Pharmacy [facility] * Preadmission Environment Home with Family * ADLs Independent * Equipment None * Other Equipment NO MEDICAL EQUIPMENT PROVIDER PREFERENCE * List name and contact numbers for known caregivers / representatives who currently or will assist patient after discharge: TIM ALAS, PERLA VISHAL, FRIEND, * Verbal permission to speak to the caregivers and representatives has been obtained from the patient. Yes * Community resources currently utilized Home Health * Please name any agencies selected above. [facility], * Additional services required to return to the preadmission environment? No * Can the patient safely return to the preadmission environment? Yes * Has this patient been hospitalized within the prior 30 days at any hospital? Yes Coverage Notice Reviewer: [id number] - Dharmesh Escobar Notice Issued Date-Time: 05/17/2018 15:00 Notice Type: Patient Choice Letter Notice Delivered To: Patient Relationship to Patient: Hog Cooler Name: Delivery Method: HAND - Hand Delivered Desire Days: Prior Verbal Notification: Recipient Understood Notice: Yes Recipient Signature: Yes Med Rec Note Co-signed by Attending: Coverage Notice Comment: ANTONI Shankar DP export: 05/20/18 9:41 a Patient Name: WESLEY GUADARRAMA Page 48613 at 1552 All edits/amendments must be made on the electronic document DICTATION DATE: 05/20/181551 PRICING MANAGER: ABI 05/20/181551 RPT#: [id number] [place] DATE: STATUS: ADM IN [facility] [address] [place] [address] END OF REPORT
--- NOTE | 2018-05-20 17:48 | NUR ---
BLADDER SCAN DONE. 131CC NOTED.
--- NOTE | 2018-05-20 18:30 | NUR ---
OT NOTE: PT COMPLETED BUE AROM AXS. PT COMPLETED SIMPLE HYGIENE TASK WITH MIN A. PT REQUIRED CUES FOR TASK COMPLETION. THANK YOU, EDWARD DELGADO
--- NOTE | 2018-05-20 19:32 | NUR ---
RESUMED CARE OF PT, LYING IN BED RESPIRATIONS EVEN AND UNLABORED ON 2LPM VIA NC. [address] ON TELEMETRY. RIGHT FOREARM INFUSING AREDIA. MARY ALARM ON. CALL LIGHT IN REACH. NO NEEDS VOICED AT THIS TIME. SEE NURSE ASSESSMENT.
[2018-05-20 20:00] VITALS: BP 132/83
[2018-05-21] VITALS: BP 143/85
[2018-05-21 04:00] VITALS: BP 132/92
[2018-05-21 04:26] LABS: BASOPHILS 0.2 % (0-2); EOSINOPHILS 0.2 % (0-7); HEMATOCRIT 33.9 % (36.0-48.0); HEMOGLOBIN 10.7 g/dL (12-16); IMMATURE GRANULOCYTES 1.1 % (0-5); LYMPHOCYTES 11.1 % (15-50); MCHC 31.6 g/dL (31.0-37.0); MCV 82.5 fL (80.0-100.0); MEAN PLATELET VOLUME 9.2 fL (7.4-10.4); MONOCYTES 8.3 % (2-11); NEUTROPHILS 79.1 % (40-80); PLATELET COUNT 635 10x3/uL (130-400); RBC 4.11 10x6/uL (4.00-5.40); RDW 18.1 % (11.5-14.5); WBC 19.8 10x3/uL (4.8-10.8)
[2018-05-21 04:50] LABS: ALBUMIN 2.5 g/dL (3.4-5.0); ALKALINE PHOSPHATASE 71 U/L (46-116); ALT (SGPT) 17 U/L (10-68); BILIRUBIN - TOTAL 0.57 mg/dL (0.2-1.3); CALCIUM 11.2 mg/dL (8.5-10.1); CARBON DIOXIDE 23.6 mmol/L (21.0-32.0); CHLORIDE - SERUM 105 mmol/L (98-107); CREATININE - SERUM 0.8 mg/dL (0.6-1.3); POTASSIUM - SERUM 4.5 mmol/L (3.5-5.1); PROTEIN - SERUM 8.6 g/dL (6.4-8.2); SODIUM 145 mmol/L (136-145); eGFR NON AFRICAN AMERICAN 78 mL/min (90-120)
[2018-05-21 04:57] LABS: CALC OSMOLALITY 298 mosm/kg (275-300); GLUCOSE 198 mg/dL (74-106); UREA NITROGEN 24 mg/dL (7-18)
--- NOTE | 2018-05-21 07:44 | MORECARE ---
CASE MANAGEMENT DISCHARGE SUMMARY PATIENT: WESLEY GUADARRAMA UNIT: [id number] ADM DATE: 05/08/18 AGE: 57 : 56 SEX: F ROOM/BED: D.8694 AUTHOR: ARLEEN,DOC PHYSICIAN: REFERRING PHYSICIAN: NATHANIEL MCCONNELL MD DATE OF SERVICE: 05/21/18 Discharge Plan Patient Name: WESLEY GUADARRAMA Facility: [facility]:[place] : 1960 Planned Disposition: Care Home Facility Anticipated Discharge Date: Discharge Date: Expected LOS: Initial Reviewer: [id number] Initial Review Date: 05/07/2018 Generated: 05/21/18 8:44 am Comments DCP- Discharge Planning Updated by [id number]: Dharmesh Escobar on 05/20/18 2:[address] Patient Name: WESLEY GUADARRAMA Encounter No: [id number] : 1960 Primary Insurance: MEDICARE A & B Anticipated DC Date: Planned Disposition: Care Home Facility External Planned Provider: [facility], MEDICARE REHAB BED Discharge Planning Comments: FAX TO [employer] HAD FAILED ON SUNDAY AFTERNOON. CM REFAXED MAXINE SCREENING AND SUPPORTING DOCUMENTS TO [facility] AT [phone]. CM FAXED REFERRAL UPDATE TO [facility] FOR REHAB CONSIDERATION VIA [employer] AT [phone]. CM WAITING MAXINE SCREENING AND DETERMINATION FOR SENIOR LIVING FACILITY PLACEMENT; CM WAITING ADMISSION DETERMINATION FROM [facility]. DHARMESH ESCOBAR CASE MANAGEMENT Appended by Dharmesh Escobar on 05/20/2018 15:[address] RAIL[address]AY: CM RECEIVED MAXINE EXEMPTION TO ADMIT TO REHAB IN SENIOR LIVING. CM SPOKE TO ADWOA OF [facility] WHO MET WITH PT AND WILL HAVE FACILITY CONTINUE TO SCREEN FOR ADMISSION. CM FAXED MAXINE EXEMPTION TO [facility] VIA [employer] AT [phone]. CM WAITING ADMISSION DETERMINATION FROM [facility]. GENEVIEVE FLAHERTY DCP- Discharge Planning Updated by [id number]: Dharmesh Escobar on 05/17/18 3:[address] Patient Name: WESLEY GUADARRAMA Admission Status: ER Accout number: [id number] Admission Date: 05-08-2018 : 1960 Admission Diagnosis:UNSPECIFIED ABDOMINAL PAIN Attending: NATHANIEL MCCONNELL Current LOS: 9 Anticipated DC Date: Planned Disposition: Care Home Facility Primary Insurance: MEDICARE A & B [facility]ANNED [facility] Discharge Planning Comments: CM RECEIVED ORDER FOR SENIOR LIVING REHAB PLACEMENT, DISCUSSED WITH PT IN ROOM. PT REQUESTS REFERRAL TO [facility] TO BE CLOSER TO HER HOME. CHOICE SIGNED. MAXINE COMPLETED, SIGNATURES OBTAINED. CM FAXED MAXINE SCREENING AND SUPPORTING DOCUMENTS TO [employer] AT [phone]. CM FAXED REFERRAL TO [facility] FOR REHAB CONSIDERATION, . CM CALLED [facility], , SPOKE TO PERLA AND NOTIFIED OF REFERRAL. CM WAITING MAXINE SCREENING AND DETERMINATION FOR SENIOR LIVING FACILITY PLACEMENT; CM WAITING ADMISSION DETERMINATION FROM [facility]. DHARMESH ESCOBAR, CASE MANAGEMENT Roster Clerk: Dharmesh Escobar DCP- Discharge Planning Updated by [id number]: Dharmesh Escobar on 05/16/18 11:[address] Patient Name: WESLEY GUADARRAMA Admission Status: ER Accout number: [id number] Admission Date: 05-08-2018 : 1960 Admission Diagnosis:UNSPECIFIED ABDOMINAL PAIN Attending: NATHANIEL MCCONNELL Current LOS: 8 Anticipated DC Date: Planned Disposition: Home with Home Health Primary Insurance: MEDICARE A & B PLANNED EXTERNAL PROVIDER: [facility] Discharge Planning Comments: CM MET WITH PT IN ROOM TO DISCUSS DISCHARGE PLANNING AND NEEDS. PT REPORTS LIVING AT HOME INDEPENDENTLY WITH CARY DUMONT, AND PERLA OLSON. PT HAS NO MEDICAL EQUIPMENT AND NO PROVIDER PREFERENCE. PT REPORTS HAVING NURSING AND THERAPY WITH [facility]. CM DISCUSSED AVAILABILITY OF HOME HEALTH, REHAB SERVICES AND MEDICAL EQUIPMENT. PT THINKS HER SCHIZOPHRENIA IS BETTER NOW AND SHE DOES NOT NEED HELP FOR THAT. PT STATES THE LAST TIME SHE HAD HELP FOR SCHIZOPHRENIA, SHE WAS AT THE [facility] AND RECEIVED EXCELLENT CARE AND WOULD GO BACK THERE IF NEEDED. PT REPORTS PLAN TO GO HOME AT DISCHARGE, WOULD LIKE HER HOME HEALTH RESTARTED AND CARY OR PERLA WILL PICK HER UP FOR DISCHARGE HOME. [phone], SPOKE TO OFE WHO VERIFIED PT IS ACTIVE AND ON HOSPITAL HOLD FOR [facility], NURSING AND PHYSICAL THERAPY. CM TO FOLLOW AND ASSIST NEEDED. FOR DISCHARGE HOME AND RESUPTION OF HOME HEALTH SERVICES, NOTIFY [facility] AT [phone], FAX DISCHARGE INFORMATION TO [facility] AT [phone]. Roster Clerk: Dharmesh Escobar DCPIA - Discharge Planning Initial Assessment Updated by [email or web address]: Dharmesh Escobar on 05/16/18 12:33 pm * Is the patient Alert and Oriented? Yes * How many steps to enter\exit or inside your home? NONE * PCP DR. SIN * Pharmacy [facility] * Preadmission Environment Home with Family * ADLs Independent * Equipment None * Other Equipment NO MEDICAL EQUIPMENT PROVIDER PREFERENCE * List name and contact numbers for known caregivers / representatives who currently or will assist patient after discharge: TIM ALAS, PERLA HICKSN, FRIEND, * Verbal permission to speak to the caregivers and representatives has been obtained from the patient. Yes * Community resources currently utilized Home Health * Please name any agencies selected above. [facility], * Additional services required to return to the preadmission environment? No * Can the patient safely return to the preadmission environment? Yes * Has this patient been hospitalized within the prior 30 days at any hospital? Yes Coverage Notice Reviewer: [id number] - Dharmesh Escobar Notice Issued Date-Time: 05/17/2018 15:00 Notice Type: Patient Choice Letter Notice Delivered To: Patient Relationship to Patient: Cardiology Nurse Practitioner Name: Delivery Method: HAND - Hand Delivered Desire Days: Prior Verbal Notification: Recipient Understood Notice: Yes Recipient Signature: Yes Med Rec Note Co-signed by Attending: Coverage Notice Comment: ANTONI Shankar DP export: 05/20/18 2:52 p Patient Name: WESLEY GUADARRAMA Page [id number] at 0744 All edits/amendments must be made on the electronic document DICTATION DATE: 05/21/18743 VOICE ENGINEER: ABI 05/21/1844 RPT#: [id number] DC DATE: STATUS: ADM IN [facility] [address] [place] [address] END OF REPORT
[2018-05-21 08:00] VITALS: BP 147/94
--- NOTE | 2018-05-21 09:30 | NUR ---
DARLENE NEEDS AT THIS TIME. CALL LIGHT IN REACH. WILL CONT. PLAN OF CARE.
[2018-05-21 12:06] VITALS: BP 117/77
--- NOTE | 2018-05-21 12:19 | NUR ---
TELEMETRY ST. UP COMPLETED PER RT ASSIST. REPOSITIONED IN BED. BRICK LAYER ASSISTS WITH LUNCH. WILL CONT. PLAN OF CARE.
--- NOTE | 2018-05-21 14:14 | NUR ---
UP OOB WITH PT ASSIST. WILL CONT. PLAN OF CARE.
[2018-05-21 15:17] VITALS: BP 132/92
--- NOTE | 2018-05-21 15:47 | NUR ---
OT NOTE: PT WITH CONTINUED CONFUSION, BUT ALSO VERY GARBLED SPEECH NOTED. UNABLE TO NAME OBJECTS. CONTINUED DIFFICULTY FOLLOWING COMMANDS. AMB WITH MIN ASSIST X 2 WITH USE OF RW TO BATHROOM; MAX ASSIST WITH HYGIENE; MAX ASSIST WITH SIMPLE GROOMING TASKS. MOD ASSIST WITH BED MOB. DIMITRI GAMBLE, OTR/L
--- NOTE | 2018-05-21 19:17 | NUR ---
RECIEVED RESTING IN BED WITH EYES CLOSED. WHEN SPOKEN TO ANSWERS WITH EYES CLOSED INAPPROIATLY.ORIENTED TO PERSON ONLY. REQUIRES TOTAL CARE. NO S/S OF DISTRESS OBSERVED. BED ALARM AND GOWN IN PLACE. WILL CONT. POC.
[2018-05-21 20:00] VITALS: BP 143/62
--- NOTE | 2018-05-21 21:52 | NUR ---
OT NOTE: PT COMPLETED UE AROM EXS FOR INCREASED AX TOLERANCE. PT COMPLETED HYGIENE TASK WITH CGA AND MOD CUES. THANK YOU, EDWARD DELGADO
[2018-05-22] VITALS: BP 117/67
[2018-05-22 04:00] VITALS: BP 134/86
[2018-05-22 05:44] LABS: WBC 24.8 10x3/uL (4.8-10.8)
[2018-05-22 05:45] LABS: HEMATOCRIT 32.7 % (36.0-48.0); HEMOGLOBIN 10.1 g/dL (12-16); MCH 25.5 pg (26.0-34.0); MCHC 30.9 g/dL (31.0-37.0); MCV 82.6 fL (80.0-100.0); MEAN PLATELET VOLUME 9.9 fL (7.4-10.4); PLATELET COUNT 564 10x3/uL (130-400); RBC 3.96 10x6/uL (4.00-5.40)
[2018-05-22 06:01] LABS: LYMPHOCYTES 17 % (15-50); MONOCYTES 8 % (2-11); NEUTROPHILS 74 % (40-80); PLATELET ESTIMATE INCREASED; PLATELET MORPHOLOGY NORMAL PLT MORPH
[2018-05-22 06:17] LABS: ALBUMIN 2.7 g/dL (3.4-5.0); BILIRUBIN - TOTAL 0.48 mg/dL (0.2-1.3); CALCIUM 10.5 mg/dL (8.5-10.1); CARBON DIOXIDE 25.6 mmol/L (21.0-32.0); CREATININE - SERUM 0.9 mg/dL (0.6-1.3); PROTEIN - SERUM 8.4 g/dL (6.4-8.2)
[2018-05-22 06:18] LABS: ANION GAP 17.9 mmol/L (8-16); POTASSIUM - SERUM 3.5 mmol/L (3.5-5.1)
--- NOTE | 2018-05-22 07:34 | NUR ---
SLEEPING AT PRESENT. WILL CONTINUE TO MONITOR.
--- NOTE | 2018-05-22 08:36 | NUR ---
PT IS LETHGARIC. TEMP IS 102.4. C ANDRIA RUBALCAVA NOTIFIED AND ORDERS RECEIVED FOR TYLENOL SUPP AND STAT ABGS.
[2018-05-22 08:58] VITALS: BP 133/90
--- NOTE | 2018-05-22 09:01 | MORECARE ---
CASE MANAGEMENT DISCHARGE SUMMARY PATIENT: WESLEY GUADARRAMA UNIT: [id number] ADM DATE: 05/08/18 AGE: 57 : 56 SEX: F ROOM/BED: D.4294 AUTHOR: ARLEEN,DOC PHYSICIAN: REFERRING PHYSICIAN: NATHANIEL MCCONNELL MD DATE OF SERVICE: 05/22/18 Discharge Plan Patient Name: WESLEY GUADARRAMA Facility: [facility]:[place] : 1960 Planned Disposition: Jail Facility Anticipated Discharge Date: Discharge Date: Expected LOS: Initial Reviewer: [id number] Initial Review Date: 05/07/2018 Generated: 05/22/18 10:01 am Comments DCP- Discharge Planning Updated by [id number]: Dharmesh Escobar on 05/20/18 2:[address] Patient Name: WESLEY GUADARRAMA Encounter No: [id number] : 1960 Primary Insurance: MEDICARE A & B Anticipated DC Date: Planned Disposition: Jail Facility External Planned Provider: [facility], MEDICARE REHAB BED Discharge Planning Comments: FAX TO [employer] HAD FAILED ON SUNDAY AFTERNOON. CM REFAXED MAXINE SCREENING AND SUPPORTING DOCUMENTS TO [facility] AT [phone]. CM FAXED REFERRAL UPDATE TO [facility] FOR REHAB CONSIDERATION VIA [employer] AT [phone]. CM WAITING MAXINE SCREENING AND DETERMINATION FOR [place] FACILITY PLACEMENT; CM WAITING ADMISSION DETERMINATION FROM [facility]. DHARMESH ESCOBAR CASE MANAGEMENT Appended by Dharmesh Escobar on 05/20/2018 15:47 WATER [employer]IER: CM RECEIVED MAXINE EXEMPTION TO ADMIT TO REHAB IN [place]. CM SPOKE TO ADWOA OF [facility] WHO MET WITH PT AND WILL HAVE FACILITY CONTINUE TO SCREEN FOR ADMISSION. CM FAXED MAXINE EXEMPTION TO [facility] VIA [employer] AT [phone]. CM WAITING ADMISSION DETERMINATION FROM [facility]. GENEVIEVE FLAHERTY DCP- Discharge Planning Updated by [id number]: Dharmesh Escobar on 05/17/18 3:[address] Patient Name: WESLEY GUADARRAMA Admission Status: ER Accout number: [id number] Admission Date: 05-08-2018 : 1960 Admission Diagnosis:UNSPECIFIED ABDOMINAL PAIN Attending: NATHANIEL MCCONNELL Current LOS: 9 Anticipated DC Date: Planned Disposition: Jail Facility Primary Insurance: MEDICARE A & B PLANNED EXTERNAL PROVIDER: [facility] Discharge Planning Comments: CM RECEIVED ORDER FOR [place] REHAB PLACEMENT, DISCUSSED WITH PT IN ROOM. PT REQUESTS REFERRAL TO [facility] TO BE CLOSER TO HER HOME. CHOICE SIGNED. MAXINE COMPLETED, SIGNATURES OBTAINED. CM FAXED MAXINE SCREENING AND SUPPORTING DOCUMENTS TO [employer] AT [phone]. CM FAXED REFERRAL TO [facility] FOR REHAB CONSIDERATION, . CM CALLED [facility], , SPOKE TO PERLA AND NOTIFIED OF REFERRAL. CM WAITING MAXINE SCREENING AND DETERMINATION FOR [place] FACILITY PLACEMENT; CM WAITING ADMISSION DETERMINATION FROM [facility]. DHARMESH ESCOBAR, CASE MANAGEMENT Hosiery Pairer: Dharmesh Escobar DCP- Discharge Planning Updated by [id number]: Dharmesh Escobar on 05/16/18 11:[address] Patient Name: WESLEY GUADARRAMA Admission Status: ER Accout number: [id number] Admission Date: 05-08-2018 : 1960 Admission Diagnosis:UNSPECIFIED ABDOMINAL PAIN Attending: NATHANIEL MCCONNELL Current LOS: 8 Anticipated DC Date: Planned Disposition: Home with Home Health Primary Insurance: MEDICARE A & B PLANNED EXTERNAL PROVIDER: [facility] Discharge Planning Comments: CM MET WITH PT IN ROOM TO DISCUSS DISCHARGE PLANNING AND NEEDS. PT REPORTS LIVING AT HOME INDEPENDENTLY WITH CARY DUMONT, AND PERLA OLSON. PT HAS NO MEDICAL EQUIPMENT AND NO PROVIDER PREFERENCE. PT REPORTS HAVING NURSING AND THERAPY WITH [facility]. CM DISCUSSED AVAILABILITY OF HOME HEALTH, REHAB SERVICES AND MEDICAL EQUIPMENT. PT THINKS HER SCHIZOPHRENIA IS BETTER NOW AND SHE DOES NOT NEED HELP FOR THAT. PT STATES THE LAST TIME SHE HAD HELP FOR SCHIZOPHRENIA, SHE WAS AT THE [facility] AND RECEIVED EXCELLENT CARE AND WOULD GO BACK THERE IF NEEDED. PT REPORTS PLAN TO GO HOME AT DISCHARGE, WOULD LIKE HER HOME HEALTH RESTARTED AND CARY OR PERLA WILL PICK HER UP FOR DISCHARGE HOME. [facility] [phone], SPOKE TO OFE WHO VERIFIED PT IS ACTIVE AND ON HOSPITAL HOLD FOR [facility], NURSING AND PHYSICAL THERAPY. CM TO FOLLOW AND ASSIST NEEDED. FOR DISCHARGE HOME AND RESUPTION OF HOME HEALTH SERVICES, NOTIFY [facility] AT [phone], FAX DISCHARGE INFORMATION TO [facility] AT [phone]. Hosiery Pairer: Dharmesh Escobar DCPIA - Discharge Planning Initial Assessment Updated by [id number]: Dharmesh Escobar on 05/16/18 12:33 pm * Is the patient Alert and Oriented? Yes * How many steps to enter\exit or inside your home? NONE * PCP DR. SIN * Pharmacy [facility] * Preadmission Environment Home with Family * ADLs Independent * Equipment None * Other Equipment NO MEDICAL EQUIPMENT PROVIDER PREFERENCE * List name and contact numbers for known caregivers / representatives who currently or will assist patient after discharge: TIM ALAS, PERLA HICKSN, FRIEND, * Verbal permission to speak to the caregivers and representatives has been obtained from the patient. Yes * Community resources currently utilized Home Health * Please name any agencies selected above. [facility], * Additional services required to return to the preadmission environment? No * Can the patient safely return to the preadmission environment? Yes * Has this patient been hospitalized within the prior 30 days at any hospital? Yes External Providers External Provider: [facility], [facility] Next Contact Date: 05/22/2018 Service Request Date: Service Type: Resolution: Reviewer: Comments: Coverage Notice Reviewer: [id number] - Dharmesh Escobar Notice Issued Date-Time: 05/17/2018 15:00 Notice Type: Patient Choice Letter Notice Delivered To: Patient Relationship to Patient: Insole Buffer Name: Delivery Method: HAND - Hand Delivered Desire Days: Prior Verbal Notification: Recipient Understood Notice: Yes Recipient Signature: Yes Med Rec Note Co-signed by Attending: Coverage Notice Comment: ANTONI Shankar DP export: 05/21/18 6:44 a Patient Name: WESLEY GUADARRAMA Page 24025 at 0901 All edits/amendments must be made on the electronic document DICTATION DATE: 05/22/18900 DIRECTOR INVESTOR RELATIONS: ABI 05/22/18900 RPT#: [id number] DC DATE: STATUS: ADM IN [facility] [address] [place] [address] END OF REPORT
--- NOTE | 2018-05-22 09:47 | MORECARE ---
CASE MANAGEMENT DISCHARGE SUMMARY PATIENT: WESLEY GUADARRAMA UNIT: [id number] ADM DATE: 05/08/18 AGE: 57 : 56 SEX: F ROOM/BED: D.3154 AUTHOR: ARLEEN,DOC PHYSICIAN: REFERRING PHYSICIAN: NATHANIEL MCCONNELL MD DATE OF SERVICE: 05/22/18 Discharge Plan Patient Name: WESLEY GUADARRAMA Facility: [facility]:[place] : 1960 Planned Disposition: Nursing Facility INDIGO Cert Anticipated Discharge Date: 05/22/18 Discharge Date: Expected LOS: 14 Initial Reviewer: [id number] Initial Review Date: 05/07/2018 Generated: 05/22/18 10:47 am Comments DCP- Discharge Planning Updated by [id number]: Dharmesh Escobar on 05/20/18 2:[address] Patient Name: WESLEY GUADARRAMA Encounter No: [id number] : 1960 Primary Insurance: MEDICARE A & B Anticipated DC Date: Planned Disposition: [facility] Facility External Planned Provider: [facility], MEDICARE REHAB BED Discharge Planning Comments: FAX TO [employer] HAD FAILED ON SUNDAY AFTERNOON. CM REFAXED MAXINE SCREENING AND SUPPORTING DOCUMENTS TO [facility] AT [phone]. CM FAXED REFERRAL UPDATE TO [facility] FOR REHAB CONSIDERATION VIA [employer] AT [phone]. CM WAITING MAXINE SCREENING AND DETERMINATION FOR ALF FACILITY PLACEMENT; CM WAITING ADMISSION DETERMINATION FROM [facility]. DHARMESH ESCOBAR CASE MANAGEMENT Appended by Dharmesh Escobar on 05/20/2018 15:47 DRIVERS LICENSE EXAMINER: CM RECEIVED MAXINE EXEMPTION TO ADMIT TO REHAB IN ALF. CM SPOKE TO ADWOA OF [facility] WHO MET WITH PT AND WILL HAVE FACILITY CONTINUE TO SCREEN FOR ADMISSION. CM FAXED MAXINE EXEMPTION TO [facility] VIA [employer] AT [phone]. CM WAITING ADMISSION DETERMINATION FROM [facility]. GENEVIEVE FLAHERTY DCP- Discharge Planning Updated by [id number]: Dharmesh Escobar on 05/17/18 3:[address] Patient Name: WESLEY GUADARRAMA Admission Status: ER Accout number: [id number] Admission Date: 05-08-2018 : 1960 Admission Diagnosis:UNSPECIFIED ABDOMINAL PAIN Attending: NATHANIEL MCCONNELL Current LOS: 9 Anticipated DC Date: Planned Disposition: [facility] Facility Primary Insurance: MEDICARE A & B PLANNED EXTERNAL PROVIDER: [facility], MEDICARE REHAB BED Discharge Planning Comments: CM RECEIVED ORDER FOR ALF REHAB PLACEMENT, DISCUSSED WITH PT IN ROOM. PT REQUESTS REFERRAL TO [facility] TO BE CLOSER TO HER HOME. CHOICE SIGNED. MAXINE COMPLETED, SIGNATURES OBTAINED. CM FAXED MAXINE SCREENING AND SUPPORTING DOCUMENTS TO [employer] AT [phone]. CM FAXED REFERRAL TO [facility] FOR REHAB CONSIDERATION, . CM CALLED [facility], , SPOKE TO PERLA AND NOTIFIED OF REFERRAL. CM WAITING MAXINE SCREENING AND DETERMINATION FOR ALF FACILITY PLACEMENT; CM WAITING ADMISSION DETERMINATION FROM [facility]. DHARMESH ESCOBAR, CASE MANAGEMENT Store Operations Manager: Dharmesh Escobar DCP- Discharge Planning Updated by [id number]: Dharmesh Escobar on 05/16/18 11:[address] Patient Name: WESLEY GUADARRAMA Admission Status: ER Accout number: [id number] Admission Date: 05-08-2018 : 1960 Admission Diagnosis:UNSPECIFIED ABDOMINAL PAIN Attending: NATHANIEL MCCONNELL Current LOS: 8 Anticipated DC Date: Planned Disposition: Home with Home Health Primary Insurance: MEDICARE A & B PLANNED EXTERNAL PROVIDER: [facility] Discharge Planning Comments: CM MET WITH PT IN ROOM TO DISCUSS DISCHARGE PLANNING AND NEEDS. PT REPORTS LIVING AT HOME INDEPENDENTLY WITH CARY DUMONT, AND PERLA OLSON. PT HAS NO MEDICAL EQUIPMENT AND NO PROVIDER PREFERENCE. PT REPORTS HAVING NURSING AND THERAPY WITH [facility]. CM DISCUSSED AVAILABILITY OF HOME HEALTH, REHAB SERVICES AND MEDICAL EQUIPMENT. PT THINKS HER SCHIZOPHRENIA IS BETTER NOW AND SHE DOES NOT NEED HELP FOR THAT. PT STATES THE LAST TIME SHE HAD HELP FOR SCHIZOPHRENIA, SHE WAS AT [facility] AND RECEIVED EXCELLENT CARE AND WOULD GO BACK THERE IF NEEDED. PT REPORTS PLAN TO GO HOME AT DISCHARGE, WOULD LIKE HER HOME HEALTH RESTARTED AND CARY OR PERLA WILL PICK HER UP FOR DISCHARGE HOME. [facility] [phone], SPOKE TO OFE WHO VERIFIED PT IS ACTIVE AND ON HOSPITAL HOLD FOR [facility], NURSING AND PHYSICAL THERAPY. CM TO FOLLOW AND ASSIST NEEDED. FOR DISCHARGE HOME AND RESUPTION OF HOME HEALTH SERVICES, NOTIFY [facility] AT [phone], FAX DISCHARGE INFORMATION TO [facility] AT [phone]. Store Operations Manager: Dharmesh Escobar DCPIA - Discharge Planning Initial Assessment Updated by [id number]: Dharmesh Escobar on 05/16/18 12:33 pm * Is the patient Alert and Oriented? Yes * How many steps to enter\exit or inside your home? NONE * PCP DR. SIN * Pharmacy [facility] * Preadmission Environment Home with Family * ADLs Independent * Equipment None * Other Equipment NO MEDICAL EQUIPMENT PROVIDER PREFERENCE * List name and contact numbers for known caregivers / representatives who currently or will assist patient after discharge: TIM ALAS, PERLA RODGERS, FRIEND, * Verbal permission to speak to the caregivers and representatives has been obtained from the patient. Yes * Community resources currently utilized Home Health * Please name any agencies selected above. [facility], * Additional services required to return to the preadmission environment? No * Can the patient safely return to the preadmission environment? Yes * Has this patient been hospitalized within the prior 30 days at any hospital? Yes Coverage Notice Reviewer: [id number] Zamzam Escobar Notice Issued Date-Time: 05/17/2018 15:00 Notice Type: Patient Choice Letter Notice Delivered To: Patient Relationship to Patient: Leadlighter Name: Delivery Method: HAND - Hand Delivered Desire Days: Prior Verbal Notification: Recipient Understood Notice: Yes Recipient Signature: Yes Med Rec Note Co-signed by Attending: Coverage Notice Comment: ANTONI ESPINAL Reviewer: [id number] Zamzam Escobar Notice Issued Date-Time: 05/22/2018 8:25 Notice Type: IM Discharge Notice Notice Delivered To: Patient Relationship to Patient: Leadlighter Name: Delivery Method: HAND - Hand Delivered Desire Days: Prior Verbal Notification: Recipient Understood Notice: Recipient Signature: Yes Med Rec Note Co-signed by Attending: Coverage Notice Comment: Last DP export: 05/22/18 8:01 a Patient Name: WESLEY GUADARRAMA Page 58940 at 0947 All edits/amendments must be made on the electronic document DICTATION DATE: 05/22/18946 ASSURANCE SENIOR: ABI 05/22/18946 RPT#: [id number] DC DATE: STATUS: ADM IN [facility] [address] [place] [address] END OF REPORT
--- NOTE | 2018-05-22 09:53 | NUR ---
TEMP RECHECKED. 101,2 AX. OTHER VS IS 138/92 125 RESP 16 AND O2 SAT IS 94
--- NOTE | 2018-05-22 10:16 | MORECARE ---
CASE MANAGEMENT DISCHARGE SUMMARY PATIENT: WESLEY GUADARRAMA UNIT: [id number] ADM DATE: 05/08/18 AGE: 57 : 56 SEX: F ROOM/BED: D.2561 AUTHOR: ARLEEN,DOC PHYSICIAN: REFERRING PHYSICIAN: NATHANIEL MCCONNELL MD DATE OF SERVICE: 05/22/18 Discharge Plan Patient Name: WESLEY GUADARRAMA Facility: [facility]:[place] : 1960 Planned Disposition: Nursing Facility INDIGO Cert Anticipated Discharge Date: 05/22/18 Discharge Date: Expected LOS: 14 Initial Reviewer: [id number] Initial Review Date: 05/07/2018 Generated: 05/22/18 11:16 am Comments DCP- Discharge Planning Updated by [id number]: Paty Escobar on 05/22/18 9:[address] Patient Name: WESLEY GUADARRAMA Encounter No: [id number] : 1960 Primary Insurance: MEDICARE A & B Anticipated DC Date: 05-22-2018 Planned Disposition: Nursing Facility INDIGO Cert External Planned Provider: [facility], LONG TERM CARE MEDICAID BED DCP follow-up note: CM RECEIVED HOSPICE ORDER. CM MET WITH PT IN ROOM, DISCUSSED ORDER FOR HOSPICE. PT STATES SHE THINKS SHE REMEMBERS THE DOCTOR TALKING TO HER ABOUT HAVING CANCER. CM DISCUSSED HOSPICE AVAILABILITY WELL ACCEPTANCE BY [facility]. PT IN AGREEMENT WITH HOSPICE AND HAS NO PREFERENCE FOR COMPANY PROVIDER. CM ASKED ABOUT NOTIFYING FAMILY. PT STATES SHE WOULD LIKE CM TO CALL TIM ALAS, OR PERLA RODGERS, HER LANDLORDS BOYFRIEND. PT DENIES FURTHER NEEDS AT THIS TIME. CM CALLED TIM ALAS, , SEVERAL TIMES OVER ONE HOUR. THERE WAS NO ANSWER AND NO VOICE MAIL SET UP TO LEAVE A MESSAGE. CM CALLED PERLA RODGERS, FRIEND, , THE LADY THAT ANSWERED REPORTS THIS IS NOT THE NUMBER TO PERLA RODGERS AND SHE DID NOT KNOW PERLA. CM SPOKE TO PT WHO DOES NOT REMEMBER THE PHONE NUMBERS FOR CARY OR PERLA. CM ASKED IF THERE WERE ANY OTHER FAMLY MEMBERS OR FRIENDS TO CALL, PT STATES NO. CM NOTIFIED [facility], . CM FAXED UPDATE TO [facility] VIA [employer] AT [phone]. CM CALLED [facility], , SPOKE TO KATIE WHO TOOK REFERRAL AND CM FAXED REFERRAL TO [facility] AT [phone]. CM CALLED [facility] [phone], SPOKE TO GALILEO WHO INFORMED CM THAT THE [facility] APPROVAL CAN BE UPDATED TO [facility] WITH UPDATED PAGE 1 FOR FORM 703, HOSPICE ORDER AND CHART NOTE. CM FAXED REQUIRED INFORMATION TO [facility] AT [phone]. CM WAITING UPDATE MAXINE SCREENING APPROVAL. CM WAITING ADMISSION DETERMINATION FOR INTERNATIONAL LOGISTICS MANAGER CARE FROM [facility]. CM WAITING HOSPICE EVALUATION AND ADMISSION DETERMINATION FROM [facility]. Paty Escobar CASE MANAGEMENT DCP- Discharge Planning Updated by [id number]: Paty Escobar on 05/20/18 2:[address] Patient Name: WESLEY GUADARRAMA Encounter No: [id number] : 1960 Primary Insurance: MEDICARE A & B Anticipated DC Date: Planned Disposition: Detention Facility External Planned Provider: [facility], MEDICARE REHAB BED Discharge Planning Comments: FAX TO [employer] HAD FAILED ON SUNDAY AFTERNOON. CM REFAXED MAXINE SCREENING AND SUPPORTING DOCUMENTS TO [facility] AT [phone]. CM FAXED REFERRAL UPDATE TO [facility] FOR REHAB CONSIDERATION VIA [employer] AT [phone]. CM WAITING [facility] SCREENING AND DETERMINATION FOR [facility]DC FACILITY PLACEMENT; CM WAITING ADMISSION DETERMINATION FROM [facility]. PATY ESCOBAR CASE MANAGEMENT Appended by Paty Escobar on 05/20/2018 15:47 APPLIED RESEARCHER: CM RECEIVED MAXINE EXEMPTION TO ADMIT TO REHAB IN [facility]. CM SPOKE TO [facility] WHO MET WITH PT AND WILL HAVE FACILITY CONTINUE TO SCREEN FOR ADMISSION. CM FAXED MAXINE EXEMPTION TO [facility] VIA [employer] AT [phone]. CM WAITING ADMISSION DETERMINATION FROM [facility]. GENEVIEVE FLAHERTY DCP- Discharge Planning Updated by [id number]: Paty Escobar on 05/17/18 3:[address] Patient Name: WESLEY GUADARRAMA Admission Status: ER Accout number: [id number] Admission Date: 05-08-2018 : 1960 Admission Diagnosis:UNSPECIFIED ABDOMINAL PAIN Attending: NATHANIEL MCCONNELL Current LOS: 9 Anticipated DC Date: Planned Disposition: Detention Facility Primary Insurance: MEDICARE A & B PLANNED EXTERNAL PROVIDER: [facility], MEDICARE REHAB BED Discharge Planning Comments: CM RECEIVED ORDER FOR [facility] REHAB PLACEMENT, DISCUSSED WITH PT IN ROOM. PT REQUESTS REFERRAL TO [facility] TO BE CLOSER TO HER HOME. CHOICE SIGNED. MAXINE COMPLETED, SIGNATURES OBTAINED. CM FAXED MAXINE SCREENING AND SUPPORTING DOCUMENTS TO [employer] AT [phone]. CM FAXED REFERRAL TO [facility] FOR REHAB CONSIDERATION, . CM CALLED [facility], , SPOKE TO PERLA AND NOTIFIED OF REFERRAL. CM WAITING MAXIEN SCREENING AND DETERMINATION FOR [facility]DC FACILITY PLACEMENT; CM WAITING ADMISSION DETERMINATION FROM [facility]. PATY ESCOBAR, CASE MANAGEMENT Home Health Clinician: Paty Escobar DCP- Discharge Planning Updated by [id number]: Paty Escobar on 05/16/18 11:[address] Patient Name: WESLEY GUADARRAMA Admission Status: ER Accout number: [id number] Admission Date: 05-08-2018 : 1960 Admission Diagnosis:UNSPECIFIED ABDOMINAL PAIN Attending: NATHANIEL MCCONNELL Current LOS: 8 Anticipated DC Date: Planned Disposition: Home with Home Health Primary Insurance: MEDICARE A & B PLANNED EXTERNAL PROVIDER: [facility] Discharge Planning Comments: CM MET WITH PT IN ROOM TO DISCUSS DISCHARGE PLANNING AND NEEDS. PT REPORTS LIVING AT HOME INDEPENDENTLY WITH CARY DUMONT, AND PERLA OLSON. PT HAS NO MEDICAL EQUIPMENT AND NO PROVIDER PREFERENCE. PT REPORTS HAVING NURSING AND THERAPY WITH [facility]. CM DISCUSSED AVAILABILITY OF HOME HEALTH, REHAB SERVICES AND MEDICAL EQUIPMENT. PT THINKS HER SCHIZOPHRENIA IS BETTER NOW AND SHE DOES NOT NEED HELP FOR THAT. PT STATES THE LAST TIME SHE HAD HELP FOR SCHIZOPHRENIA, SHE WAS AT THE [facility] AND RECEIVED EXCELLENT CARE AND WOULD GO BACK THERE IF NEEDED. PT REPORTS PLAN TO GO HOME AT DISCHARGE, WOULD LIKE HER HOME HEALTH RESTARTED AND CARY OR PERLA WILL PICK HER UP FOR DISCHARGE HOME. CM [facility] [phone], SPOKE TO OFE WHO VERIFIED PT IS ACTIVE AND ON HOSPITAL HOLD FOR [facility] SERVICES, NURSING AND PHYSICAL THERAPY. CM TO FOLLOW AND ASSIST NEEDED. FOR DISCHARGE HOME AND RESUPTION OF HOME HEALTH SERVICES, NOTIFY [facility] AT [phone], FAX DISCHARGE INFORMATION TO [facility] AT [phone]. Home Health Clinician: Paty Escobar DCPIA - Discharge Planning Initial Assessment Updated by [email or web address]: Paty Escobar on 05/16/18 12:33 pm * Is the patient Alert and Oriented? Yes * How many steps to enter\exit or inside your home? NONE * PCP DR. SIN * Pharmacy [facility] * Preadmission Environment Home with Family * ADLs Independent * Equipment None * Other Equipment NO MEDICAL EQUIPMENT PROVIDER PREFERENCE * List name and contact numbers for known caregivers / representatives who currently or will assist patient after discharge: TIM ALAS, PERLA RODGERS, FRIEND, * Verbal permission to speak to the caregivers and representatives has been obtained from the patient. Yes * Community resources currently utilized Home Health * Please name any agencies selected above. [facility], * Additional services required to return to the preadmission environment? No * Can the patient safely return to the preadmission environment? Yes * Has this patient been hospitalized within the prior 30 days at any hospital? Yes Coverage Notice Reviewer: [id number] Zamzam Escobar Notice Issued Date-Time: 05/17/2018 15:00 Notice Type: Patient Choice Letter Notice Delivered To: Patient Relationship to Patient: Bisque Ware Dipper Name: Delivery Method: HAND - Hand Delivered Desire Days: Prior Verbal Notification: Recipient Understood Notice: Yes Recipient Signature: Yes Med Rec Note Co-signed by Attending: Coverage Notice Comment: ANTONI ESPINAL Reviewer: [id number] Zamzam Escobar Notice Issued Date-Time: 05/22/2018 8:25 Notice Type: IM Discharge Notice Notice Delivered To: Patient Relationship to Patient: Bisque Ware Dipper Name: Delivery Method: HAND - Hand Delivered Desire Days: Prior Verbal Notification: Recipient Understood Notice: Recipient Signature: Yes Med Rec Note Co-signed by Attending: Coverage Notice Comment: Last DP export: 05/22/18 8:47 a Patient Name: WESLEY GUADARRAMA Page 21632 at 1016 All edits/amendments must be made on the electronic document DICTATION DATE: 05/22/18 1016 SUPERINTENDENT GENERAL: ABI 05/22/18 1016 RPT#: [id number] DC DATE: STATUS: ADM IN [facility] [address] [place] [address] END OF REPORT
--- NOTE | 2018-05-22 11:52 | NUR ---
PT ALERT AND ORIENTED X 3. PT LATHARGIC AND COMPLAINS OF PAIN 7/10. WAS ABLE TO GET PT TO SWALLOW SOME MEDICATION WITH APPLESAUCE. BED LOW CALL LIGHT WITHIN REACH. MARY ALARM IN PLACE. WILL CONTINUE TO MONITOR.
[2018-05-22 11:55] VITALS: BP 138/92
--- NOTE | 2018-05-22 12:18 | NUR ---
AM MEDICATIONS ADMINISTERED. PT REMAINS LETHARGIC AND ONLY RESPONDS TO DEEP STIMULI. FSBS WAS 323 @1130 AND RECIEVED ORDERED DOSE OF REGULAR INSULIN. RR EVEN AND UNLABORED ON 4L 02. PT CURRENTLY SITTING IN CHAIR. WILL CTM.
--- NOTE | 2018-05-22 15:17 | NUR ---
OT NOTE: PT WITH VERY LOW RESPONSIVENESS IN AM; ASSISTED TO EDGE OF BED WITH MOD ASSIST; VERY LETHARGIC; VERY MINIMAL VERBALIZATION; DIFFICULTY FOLLOWING COMMANDS. S.T. ENTERED ROOM, PROVIDED LIQUID, PT BECAME MORE ALERT AND WAS ABLE TO ANSWER VERBALLY AND INTELLIGABLY. REMAINS CONFUSED AND DISORIENTED. ASSISTED TO CHAIR WITH MOD ASSIST AND USE OF RW. DIMITRI GAMBLE, OTR/L
[2018-05-22 15:55] VITALS: BP 131/84
--- NOTE | 2018-05-22 16:57 | MORECARE ---
CASE MANAGEMENT DISCHARGE SUMMARY PATIENT: WESLEY GUADARRAMA UNIT: [id number] ADM DATE: 05/08/18 AGE: 57 : 56 SEX: F ROOM/BED: D.3504 AUTHOR: ARLEEN,DOC PHYSICIAN: REFERRING PHYSICIAN: NATHANIEL MCCONNELL MD DATE OF SERVICE: 05/22/18 Discharge Plan Patient Name: WESLEY GUADARRAMA Facility: [facility]:[place] : 1960 Planned Disposition: Nursing Facility INDIGO Cert Anticipated Discharge Date: 05/22/18 Discharge Date: Expected LOS: 14 Initial Reviewer: [id number] Initial Review Date: 05/07/2018 Generated: 05/22/18 5:56 pm Comments DCP- Discharge Planning Updated by [id number]: Paty Escobar on 05/22/18 3:[address] Patient Name: WESLEY GUADARRAMA Encounter No: [id number] : 1960 Primary Insurance: MEDICARE A & B Anticipated DC Date: 05-22-2018 Planned Disposition: Nursing Facility INDIGO Cert External Planned Provider: [facility], LONG TERM CARE MEDICAID BED DCP follow-up note: CM RECEIVED HOSPICE ORDER. CM MET WITH PT IN ROOM, DISCUSSED ORDER FOR HOSPICE. PT STATES SHE THINKS SHE REMEMBERS THE DOCTOR TALKING TO HER ABOUT HAVING CANCER. CM DISCUSSED HOSPICE AVAILABILITY WELL ACCEPTANCE BY [facility]. PT IN AGREEMENT WITH HOSPICE AND HAS NO PREFERENCE FOR COMPANY PROVIDER. CM ASKED ABOUT NOTIFYING FAMILY. PT STATES SHE WOULD LIKE CM TO CALL TIM ALAS, OR PERLA RODGERS, HER LANDLORDS BOYFRIEND. PT DENIES FURTHER NEEDS AT THIS TIME. CM CALLED TIM ALAS, , SEVERAL TIMES OVER ONE HOUR. THERE WAS NO ANSWER AND NO VOICE MAIL SET UP TO LEAVE A MESSAGE. CM CALLED PERLA RODGERS, FRIEND, , THE LADY THAT ANSWERED REPORTS THIS IS NOT THE NUMBER TO PERLA RODGERS AND SHE DID NOT KNOW PERLA. CM SPOKE TO PT WHO DOES NOT REMEMBER THE PHONE NUMBERS FOR CARY OR PERLA. CM ASKED IF THERE WERE ANY OTHER FAMLY MEMBERS OR FRIENDS TO CALL, PT STATES NO. CM NOTIFIED [facility] OF [facility], . CM FAXED UPDATE TO [facility] VIA [employer] AT [phone]. CM CALLED [facility], , SPOKE TO KATIE WHO TOOK REFERRAL AND CM FAXED REFERRAL TO [facility] AT [phone]. CM CALLED [employer] [phone], SPOKE TO GALILEO WHO INFORMED CM THAT THE MAXINE APPROVAL CAN BE UPDATED TO [facility] WITH UPDATED PAGE 1 FOR FORM 703, HOSPICE ORDER AND CHART NOTE. CM FAXED REQUIRED INFORMATION TO [employer] [facility] AT [phone]. CM WAITING UPDATE MAX[facility] SCREENING APPROVAL. CM WAITING ADMISSION DETERMINATION FOR PILOT SAFETY INSPECTOR CARE FROM [facility]. CM WAITING HOSPICE EVALUATION AND ADMISSION DETERMINATION FROM [facility]. Paty Escobar, CASE MANAGEMENT Appended by Paty Escobar on 05/22/2018 16:56 VACUUM KETTLE COOK: CM RECEIVED MAXINE UPDATE DETERMINATION, PT MAY ENTER DETENTION FOR PILOT SAFETY INSPECTOR CARE / HOSPICE. CM SPOKE TO [facility] WHO REPORTS PT NEEDS NEXT OF KIN TO SIGN LEGALS FOR PILOT SAFETY INSPECTOR CARE MEDICAID. CM SPOKE TO BRITNEY OF [facility] WHO INFORMED CM THAT PT IS NOT ABLE TO SIGN LEGALS HERSELF AND THEY NEED THE LEGAL NEXT OF KIN TO SIGN PAPERWORK FOR HOSPICE. CM SPOKE TO PT IN ROOM. PT WILL NOT PROVIDE FAMILY INFORMATION. PT HAS REPORTED PREVIOUSLY THAT SHE HIS BUT WILL NOT TELL CM SPOUSE'S NAME OR LAST KNOWN LOCATION. PT CONTINUES TO TELL CM TO CALL JULIA OR PERLA. PT CANNOT PROVIDE BETTER PHONE CONTACT INFORMATION FOR EITHER. KEVINS NUMBER IS NOT CORRECT, JULIA'S NUMBER DOES NOT GET ANSWERED AND THERE IS NOT VOICE MAIL SET UP. CM UNABLE TO LOCATE PHONE NUMBERS FOR EITHER PERSON REQUESTED BY PT ON THE INTERNET. CM CALLED [facility], , PROVIDED ALLEGATIONS OF PT NOT BEING ABLE TO SIGN FOR HERSELF AND HAS NO LEGAL PERSON TO ASSIST WITH ARRANGING CARE. REPORT #[id number]. PT IS NOT ABLE TO SIGN FOR [facility] CARE OR HOSPICE CARE. CM UNABLE TO LOCATE NEXT OF KIN. PT IS OF NO ASSISTANCE IN ATTEMPTING TO LOCATE NEXT OF KIN. CM WAITING [facility] EVALUATION AND POSSIBLE ASSISTANCE. PATY ESCOBAR, CASE MANAGEMENT DCP- Discharge Planning Updated by [id number]: Paty Escobar on 05/20/18 2:[address] Patient Name: WESLEY GUADARRAMA Encounter No: [id number] : 1960 Primary Insurance: MEDICARE A & B Anticipated DC Date: Planned Disposition: Care Home Facility External Planned Provider: [facility] MEDICARE REHAB BED Discharge Planning Comments: FAX TO [employer] HAD FAILED ON SUNDAY AFTERNOON. CM REFAXED MAXINE SCREENING AND SUPPORTING DOCUMENTS TO [employer] AT [phone]. CM FAXED REFERRAL UPDATE TO [facility] FOR REHAB CONSIDERATION VIA [employer] AT [phone]. CM WAITING [facility] SCREENING AND DETERMINATION FOR DETENTION FACILITY PLACEMENT; CM WAITING ADMISSION [facility]ERMINATION FROM [facility]. PATY ESCOBAR, CASE MANAGEMENT Appended by Paty Escobar on 05/20/2018 15:47 VACUUM KETTLE COOK: CM RECEIVED MAXINE EXEMPTION TO ADMIT TO REHAB IN DETENTION. CM SPOKE TO [facility] OF [facility] WHO MET WITH PT AND WILL HAVE FACILITY CONTINUE TO SCREEN FOR ADMISSION. CM FAXED MAXINE EXEMPTION TO [facility]IA [employer] AT [phone]. CM WAITING ADMISSION DETERMINATION FROM [facility]. PATY ESCOBAR, CASE MANAGEMENT DCP- Discharge Planning Updated by [email or web address]: Paty Escobar on 05/17/18 3:[address] Patient Name: WESLEY GUADARRAMA Admission Status: ER Accout number: [id number] Admission Date: 05-08-2018 : 1960 Admission Diagnosis:UNSPECIFIED ABDOMINAL PAIN Attending: NATHANIEL MCCONNELL Current LOS: 9 Anticipated DC Date: Planned Disposition: Care Home Facility Primary Insurance: MEDICARE A & B PLANNED EXTERNAL PROVIDER: [facility], MEDICARE REHAB BED Discharge Planning Comments: CM RECEIVED ORDER FOR DETENTION REHAB PLACEMENT, DISCUSSED WITH PT IN ROOM. PT REQUESTS REFERRAL TO [facility] TO BE CLOSER TO HER HOME. CHOICE SIGNED. MAXINE COMPLETED, SIGNATURES OBTAINED. CM FAXED MAXINE SCREENING AND SUPPORTING DOCUMENTS TO [employer] AT [phone]. CM FAXED REFERRAL TO [facility] FOR REHAB CONSIDERATION, . CM CALLED [facility], , SPOKE TO PERLA AND NOTIFIED OF REFERRAL. CM WAITING MAXINE SCREENING AND DETERMINATION FOR DETENTION FACILITY PLACEMENT; CM WAITING ADMISSION DETERMINATION FROM [facility]. PATY ESCOBAR, CASE MANAGEMENT Otr Driver: Paty Escobar DCP- Discharge Planning Updated by [id number]: Paty Escobar on 05/16/18 11:[address] Patient Name: WESLEY GUADARRAMA Admission Status: ER Accout number: [id number] Admission Date: 05-08-2018 : 1960 Admission Diagnosis:UNSPECIFIED ABDOMINAL PAIN Attending: NATHANIEL MCCONNELL Current LOS: 8 Anticipated DC Date: Planned Disposition: Home with Home Health Primary Insurance: MEDICARE A & B PLANNED EXTERNAL PROVIDER: [facility] Discharge Planning Comments: CM MET WITH PT IN ROOM TO DISCUSS DISCHARGE PLANNING AND NEEDS. PT REPORTS LIVING AT HOME INDEPENDENTLY WITH CARY DUMONT, AND PERLA OLSON. PT HAS NO MEDICAL EQUIPMENT AND NO PROVIDER PREFERENCE. PT REPORTS HAVING NURSING AND THERAPY WITH [facility]. CM DISCUSSED AVAILABILITY OF HOME HEALTH, REHAB SERVICES AND MEDICAL EQUIPMENT. PT THINKS HER SCHIZOPHRENIA IS BETTER NOW AND SHE DOES NOT NEED HELP FOR THAT. PT STATES THE LAST TIME SHE HAD HELP FOR SCHIZOPHRENIA, SHE WAS AT THE [facility] AND RECEIVED EXCELLENT CARE AND WOULD GO BACK THERE IF NEEDED. PT REPORTS PLAN TO GO HOME AT DISCHARGE, WOULD LIKE HER HOME HEALTH RESTARTED AND CARY OR PERLA WILL PICK HER UP FOR DISCHARGE HOME. [facility] [phone], SPOKE TO OFE WHO VERIFIED PT IS ACTIVE AND ON HOSPITAL HOLD FOR [facility], NURSING AND PHYSICAL THERAPY. CM TO FOLLOW AND ASSIST NEEDED. FOR DISCHARGE HOME AND RESUPTION OF HOME HEALTH SERVICES, NOTIFY [facility] AT [phone], FAX DISCHARGE INFORMATION TO [facility] AT [phone]. Otr Driver: Paty Escobar DCPIA - Discharge Planning Initial Assessment Updated by [id number]: Paty Escobar on 05/16/18 12:33 pm * Is the patient Alert and Oriented? Yes * How many steps to enter\exit or inside your home? NONE * PCP DR. SIN * Pharmacy [facility] * Preadmission Environment Home with Family * ADLs Independent * Equipment None * Other Equipment NO MEDICAL EQUIPMENT PROVIDER PREFERENCE * List name and contact numbers for known caregivers / representatives who currently or will assist patient after discharge: TIM ALAS, PERLA RODGERS, FRIEND, * Verbal permission to speak to the caregivers and representatives has been obtained from the patient. Yes * Community resources currently utilized Home Health * Please name any agencies selected above. [facility], * Additional services required to return to the preadmission environment? No * Can the patient safely return to the preadmission environment? Yes * Has this patient been hospitalized within the prior 30 days at any hospital? Yes Coverage Notice Reviewer: [id number] Escobar Notice Issued Date-Time: 05/17/2018 15:00 Notice Type: Patient Choice Letter Notice Delivered To: Patient Relationship to Patient: Supervisor Record Press Name: Delivery Method: HAND - Hand Delivered Desire Days: Prior Verbal Notification: Recipient Understood Notice: Yes Recipient Signature: Yes Med Rec Note Co-signed by Attending: Coverage Notice Comment: ANTONI ESPINAL Reviewer: [id number] Escobar Notice Issued Date-Time: 05/22/2018 8:25 Notice Type: IM Discharge Notice Notice Delivered To: Patient Relationship to Patient: Supervisor Record Press Name: Delivery Method: HAND - Hand Delivered Desire Days: Prior Verbal Notification: Recipient Understood Notice: Recipient Signature: Yes Med Rec Note Co-signed by Attending: Coverage Notice Comment: Last DP export: 05/22/18 9:16 a Patient Name: WESLEY GUADARRAMA Page 35528 at 1657 All edits/amendments must be made on the electronic document DICTATION DATE: 05/22/181655 SANITARIAN AIDE: ABI 05/22/181655 RPT#: [id number] DC DATE: STATUS: ADM IN [facility] [address] [place] [address] END OF REPORT
--- NOTE | 2018-05-22 18:24 | NUR ---
PT LYING SEMI FOWLERS. CALL LIGHT W/I REACH. PT REMAINS LETHARGIC AND ONLY RESPONDS TO DEEP STIMULI. RR EVEN AND UNLABORED. WILL PASS REPORT AND CONTINUE WITH POC.
--- NOTE | 2018-05-22 19:00 | NUR ---
PT CONFUSED AND AWAKENS TO TOUCH STIMULI. PT DISORIENTED. NEPHEW AT BEDSIDE. THE WRONG PHONE NUMBER ON FILE FOR PT EMERGENCY CONTACT. PERLA RODGERS- CORRECT PHONE NUMBER IS [phone]. PT FAMILY UNAWARE OF PT STATUS AND WOULD LIKE TO BE CONTACTED CONCERNING HOSPICE CONSULT AND PT CONDITION. WILL LEAVE A NOTE FOR RANDY, MANAGER MOBILITY. VITALS STABLE. CALL LIGHT WITHIN REACH. BED ALARM IN PLACE. WILL CONTINUE TO MONITOR.
[2018-05-22 20:00] VITALS: BP 141/93
[2018-05-23] VITALS: BP 131/86
--- NOTE | 2018-05-23 02:29 | NUR ---
PT RESTING IN BED WITH EYES CLOSED. RESPIRATIONS EVEN AND UNLABORED. PT VITALS STABLE. CALL LIGHT WITHIN REACH. SIDE RAILS X 2. BED LOW. WILL CONTINUE TO MONITOR.
[2018-05-23 04:00] VITALS: BP 131/86
--- NOTE | 2018-05-23 04:52 | NUR ---
TREATED PT WITH 650MG TYLENOL. PT TEMP 101.2. SKIN CLAMMY. PT STATED SHE IS THIRSTY, PT WASN'T ABLE TO SUCK OUT OF STRAW. GAVE HER SMALL SIPS USING STRAW. PT BED LOW CALL LIGHT WITHIN REACH. WILL CONTIN UE TO MONITOR.
--- NOTE | 2018-05-23 05:39 | NUR ---
PT TEMP 100.3 AT RECHECK. PT WARM TO TOUCH AND SKIN CLAMMY. PT HAD FEW SIPS OF WATER. WILL CONTINUE TO MONITOR.
[2018-05-23 06:09] LABS: ALBUMIN 2.8 g/dL (3.4-5.0); ANION GAP 16.8 mmol/L (8-16); BILIRUBIN - TOTAL 0.49 mg/dL (0.2-1.3); CALCIUM 9.7 mg/dL (8.5-10.1); CARBON DIOXIDE 25.8 mmol/L (21.0-32.0); CREATININE - SERUM 0.9 mg/dL (0.6-1.3); POTASSIUM - SERUM 3.6 mmol/L (3.5-5.1); PROTEIN - SERUM 8.3 g/dL (6.4-8.2)
[2018-05-23 06:15] LABS: HEMOGLOBIN 10.2 g/dL (12-16); MCH 25.7 pg (26.0-34.0); MCHC 30.9 g/dL (31.0-37.0); MCV 83.1 fL (80.0-100.0); MEAN PLATELET VOLUME 10.2 fL (7.4-10.4); PLATELET COUNT 506 10x3/uL (130-400); RBC 3.97 10x6/uL (4.00-5.40); RDW 18.2 % (11.5-14.5); WBC 25.6 10x3/uL (4.8-10.8)
--- NOTE | 2018-05-23 06:35 | NUR ---
PT TEMP 99.8.WILL CONTINUE TO MONITOR
[2018-05-23 07:26] LABS: LYMPHOCYTES 22 % (15-50); MONOCYTES 6 % (2-11); NEUTROPHILS 70 % (40-80); PLATELET ESTIMATE INCREASED
[2018-05-23 07:27] LABS: HYPOCHROMASIA OCC; ROULEAUX OCC
--- NOTE | 2018-05-23 07:30 | NUR ---
EYES CLOSED RESP UNLABORED RESPONDS TO PAIFUL STIMULI WILL CONT TO MONITOR
[2018-05-23 08:22] VITALS: BP 149/91
--- NOTE | 2018-05-23 08:41 | MORECARE ---
CASE MANAGEMENT DISCHARGE SUMMARY PATIENT: WESLEY GUADARRAMA UNIT: [id number] ADM DATE: 05/08/18 AGE: 57 : 56 SEX: F ROOM/BED: D.4495 AUTHOR: ARLEEN,DOC PHYSICIAN: REFERRING PHYSICIAN: NATHANIEL MCCONNELL MD DATE OF SERVICE: 05/23/18 Discharge Plan Patient Name: WESLEY GUADARRAMA Facility: [facility]:[place] : 1960 Planned Disposition: Nursing Facility [facility]O Cert Anticipated Discharge Date: 05/22/18 Discharge Date: Expected LOS: 14 Initial Reviewer: [id number] Initial Review Date: 05/07/2018 Generated: 05/23/18 9:40 am Comments DCP- Discharge Planning Updated by [id number]: Paty Escobar on 05/23/18 7:[address] Patient Name: WESLEY GUAADRRAMA Encounter No: [id number] : 1960 Primary Insurance: MEDICARE A & B Anticipated DC Date: 05-22-2018 Planned Disposition: Nursing Facility [facility]O Cert External Planned Provider: [facility], LONG TERM CARE MEDICAID BED DCP follow-up note: CM WENT TO PT'S HOME LAST EVENING, 05-22-18, MET WITH CARY PAINTING IN THE HOME. CARY INFORMED CM THAT THE NUMBER LISTED FOR HER IS CORRECT, THAT SHE WORKS AT THE [employer] AND WAS AT WORK WHEN CM CALLED. CARY PROVIDED PHONE NUMBER CORRECTION FOR PERLA RODGERS, . CARY INFORMED CM THAT SHE AND PERLA ARE PT'S FRIENDS, PT DOES LIVE WITH HER. PT DID PROVIDE A HAND WRITTEN NOTE TO CARY TO TAKE CARE OF PT'S BUSINESS, BUT CARY NOR PERLA HAVE POWER OF RN MANAGED CARE. PT HAS NO LIVING PARENTS AND DOES NOT HAVE CHILDREN. PT DOES HAVE A BROTHER IN [facility]. PT IS TO JOI GUADARRAMA, WHITE MALE, LAST KNOWN TO LIVE [address] ON [address] IN [facility]. PT HAS NOT HAD CONTACT WITH HER SPOUSE IN MANY YEARS AND ONLY HIM BECAUSE "HE HAD GOOD INSURANCE". PT HAS A NIECE IN [facility]. CM WAS NOT ABLE TO OBTAIN CONTACT INFORMATION FOR PT'S BROTHER IN [facility]. CARY REPORTS THAT SHE IS NOT IN FAVOR OF HOSPICE AND THAT PT HAS FOUGHT THROUGH CANCER BEFORE. CARY REPORTS SHE IS NOT IN FAVOR OF DISTRICT COURT JUSTICE DETENTION CARE AND THAT SHE WOULD RATHER BRING PT HOME AND CARE FOR PT AT HOME IF POSSIBLE. CARY WILL VISIT WITH PT AT HOSPITAL. CARY PROVIDED LETTER FROM KAROLINE DE LEON, FOR PT AND ASKED CM TO GIVE TO PT IN HOSITAL. CM DELIVERED LETTER TO PT ON 05-23-18, SPOKE TO PT WHO ONLY ASKED HOW HER DOG, LUCILLE, WAS DOING. PT DID NOT COMMUNICATE FURTHER WITH CM THIS MORNING. ACCORDING TO [facility] AND [facility] REPRESENTATIVES, PT IS NOT ABLE TO SIGN HERSELF FOR DISTRICT COURT JUSTICE CARE OR HOSPICE CARE DUE TO HER MENTAL STATUS. CM UNABLE TO LOCATE NEXT OF KIN. PT IS OF NO ASSISTANCE IN ATTEMPTING TO LOCATE NEXT OF KIN. CM WAITING ADULT PROTECTIVE SERVICES EVALUATION AND POSSIBLE ASSISTANCE. PATY ESCOBAR, CASE MANAGEMENT DCP- Discharge Planning Updated by [id number]: Paty Escobar on 05/22/18 3:[address] Patient Name: WESLEY GUADARRAMA Encounter No: [id number] : 1960 Primary Insurance: MEDICARE A & B Anticipated DC Date: 05-22-2018 Planned Disposition: Nursing Facility IN[facility]O Cert External Planned Provider: [facility] ESPIN[facility], LONG TERM CARE MEDICAID BED DCP follow-up note: CM RECEIVED HOSPICE ORDER. CM MET WITH PT IN ROOM, DISCUSSED ORDER FOR HOSPICE. PT STATES SHE THINKS SHE REMEMBERS THE DOCTOR TALKING TO HER ABOUT HAVING CANCER. CM DISCUSSED HOSPICE AVAILABILITY WELL ACCEPTANCE BY [facility]. PT IN AGREEMENT WITH HOSPICE AND HAS NO PREFERENCE FOR COMPANY PROVIDER. CM ASKED ABOUT NOTIFYING FAMILY. PT STATES SHE WOULD LIKE CM TO CALL TIM ALAS, OR PERLA RODGERS, HER LANDLORDS BOYFRIEND. PT DENIES FURTHER NEEDS AT THIS TIME. CM CALLED TIM ALAS, , SEVERAL TIMES OVER ONE HOUR. THERE WAS NO ANSWER AND NO VOICE MAIL SET UP TO LEAVE A MESSAGE. CM CALLED PERLA RODGERS, FRIEND, , THE LADY THAT ANSWERED REPORTS THIS IS NOT THE NUMBER TO PERLA RODGERS AND SHE DID NOT KNOW PERLA. CM SPOKE TO PT WHO DOES NOT REMEMBER THE PHONE NUMBERS FOR CARY OR PERLA. CM ASKED IF THERE WERE ANY OTHER FAMLY MEMBERS OR FRIENDS TO CALL, PT STATES NO. CM NOTIFIED [facility] OF [facility], . CM FAXED UPDATE TO [facility] VIA [facility] AT [phone]. CM CALLED [facility], , SPOKE TO KATIE WHO TOOK REFERRAL AND CM FAXED REFERRAL TO [facility] AT [phone]. CM CALLED [facility] [phone], SPOKE TO GALILEO WHO INFORMED CM THAT THE [facility] APPROVAL CAN BE UPDATED TO [facility] WITH UPDATED PAGE 1 FOR FORM 703, HOSPICE ORDER AND CHART NOTE. CM FAXED REQUIRED INFORMATION TO [employer] AT [phone]. CM WAITING UPDATE [facility] SCREENING APPROVAL. CM WAITING ADMISSION DETERMINATION FOR PENITENTIARY CARE FROM [facility]. CM WAITING HOSPICE EVALUATION AND ADMISSION DETERMINATION FROM [facility]. Paty Escobar, CASE MANAGEMENT Appended by Paty Escobar on 05/22/2018 16:56 DELIVERY DIRECTOR: CM RECEIVED [facility] UPDATE DETERMINATION, PT MAY ENTER SENIOR CARE FOR DISTRICT COURT JUSTICE CARE / HOSPICE. CM SPOKE TO [facility] WHO REPORTS PT NEEDS NEXT OF KIN TO SIGN LEGALS FOR DISTRICT COURT JUSTICE CARE MEDICAID. CM SPOKE TO BRITNEY OF [facility] WHO INFORMED CM THAT PT IS NOT ABLE TO SIGN LEGALS HERSELF AND THEY NEED THE LEGAL NEXT OF KIN TO SIGN PAPERWORK FOR HOSPICE. CM SPOKE TO PT IN ROOM. PT WILL NOT PROVIDE FAMILY INFORMATION. PT HAS REPORTED PREVIOUSLY THAT SHE HIS BUT WILL NOT TELL CM SPOUSE'S NAME OR LAST KNOWN LOCATION. PT CONTINUES TO TELL CM TO CALL JULIA OR PERLA. PT CANNOT PROVIDE BETTER PHONE CONTACT INFORMATION FOR EITHER. KEVKATHARINE NUMBER IS NOT CORRECT, JULIA'S NUMBER DOES NOT GET ANSWERED AND THERE IS NOT VOICE MAIL SET UP. CM UNABLE TO LOCATE PHONE NUMBERS FOR EITHER PERSON REQUESTED BY PT ON THE INTERNET. CM CALLED [facility] [employer] [employer], , PROVIDED ALLEGATIONS OF PT NOT BEING ABLE TO SIGN FOR HERSELF AND HAS NO LEGAL PERSON TO ASSIST WITH ARRANGING CARE. REPORT #[id number]. PT IS NOT ABLE TO SIGN FOR DISTRICT COURT JUSTICE CARE OR HOSPICE CARE. CM UNABLE TO LOCATE NEXT OF KIN. PT IS OF NO ASSISTANCE IN ATTEMPTING TO LOCATE NEXT OF KIN. CM WAITING ADULT PROTECTIVE SERVICES EVALUATION AND POSSIBLE ASSISTANCE. GENEVIEVE FLAHERTY MANAGEMENT DCP- Discharge Planning Updated by [id number]: Paty Escobar on 05/20/18 2:[address] Patient Name: WESLEY GUADARRAMA Encounter No: [id number] : 1960 Primary Insurance: MEDICARE A & B Anticipated DC Date: Planned Disposition: Correction Facility External Planned Provider: [facility], MEDICARE REHAB BED Discharge Planning Comments: FAX TO [facility] HAD FAILED ON SUNDAY AFTERNOON. CM REFAXED MAXINE SCREENING AND SUPPORTING DOCUMENTS TO [facility] AT [phone]. CM FAXED REFERRAL UPDATE TO [facility] FOR REHAB CONSIDERATION VIA [employer] AT [phone]. CM WAITING [facility] SCREENING AND DETERMINATION FOR SENIOR CARE FACILITY PLACEMENT; CM WAITING ADMISSION DETERMINATION FROM [facility]. PATY ESCOBAR CASE MANAGEMENT Appended by Paty Escobar on 05/20/2018 15:47 DELIVERY DIRECTOR: CM RECEIVED [facility] EXEMPTION TO ADMIT TO REHAB IN SENIOR CARE. CM SPOKE TO [facility] OF [facility] WHO MET WITH PT AND WILL HAVE FACILITY CONTINUE TO SCREEN FOR ADMISSION. CM FAXED MAXINE EXEMPTION TO [facility] VIA [employer] AT [phone]. CM WAITING ADMISSION DETERMINATION FROM [facility]. GENEVIEVE FLAHERTY DCP- Discharge Planning Updated by [id number]: Paty Escobar on 05/17/18 3:[address] Patient Name: WESLEY GUADARRAMA Admission Status: ER Accout number: [id number] Admission Date: 05-08-2018 : 1960 Admission Diagnosis:UNSPECIFIED ABDOMINAL PAIN Attending: NATHANIEL MCCONNELL Current LOS: 9 Anticipated DC Date: Planned Disposition: Correction Facility Primary Insurance: MEDICARE A & B PLANNED EXTERNAL PROVIDER: [facility], MEDICARE REHAB BED Discharge Planning Comments: CM RECEIVED ORDER FOR SENIOR CARE REHAB PLACEMENT, DISCUSSED WITH PT IN ROOM. PT REQUESTS REFERRAL TO [facility] TO BE CLOSER TO HER HOME. CHOICE SIGNED. [facility] COMPLETED, SIGNATURES OBTAINED. CM FAXED MAXINE SCREENING AND SUPPORTING DOCUMENTS TO [employer] AT [phone]. CM FAXED REFERRAL TO [facility] FOR REHAB CONSIDERATION, . CM CALLED [facility], , SPOKE TO PERLA AND NOTIFIED OF REFERRAL. CM WAITING [facility] SCREENING AND DETERMINATION FOR SENIOR CARE FACILITY PLACEMENT; CM WAITING ADMISSION DETERMINATION FROM [facility] AND REHAB. PATY ESCOBAR, CASE MANAGEMENT Rec Therapist: Paty Escobar DCP- Discharge Planning Updated by [id number]: Paty Escobar on 05/16/18 11:[address] Patient Name: WESLEY GUADARRAMA Admission Status: ER Accout number: [id number] Admission Date: 05-08-2018 : 1960 Admission Diagnosis:UNSPECIFIED ABDOMINAL PAIN Attending: NATHANIEL MCCONNELL Current LOS: 8 Anticipated DC Date: Planned Disposition: Home with Home Health Primary Insurance: MEDICARE A & B PLANNED EXTERNAL PROVIDER: [facility] Discharge Planning Comments: CM MET WITH PT IN ROOM TO DISCUSS DISCHARGE PLANNING AND NEEDS. PT REPORTS LIVING AT HOME INDEPENDENTLY WITH CARY DUMONT, AND LANDLORPERLA LORA. PT HAS NO MEDICAL EQUIPMENT AND NO PROVIDER PREFERENCE. PT REPORTS HAVING NURSING AND THERAPY WITH [facility]. CM DISCUSSED AVAILABILITY OF HOME HEALTH, REHAB SERVICES AND MEDICAL EQUIPMENT. PT THINKS HER SCHIZOPHRENIA IS BETTER NOW AND SHE DOES NOT NEED HELP FOR THAT. PT STATES THE LAST TIME SHE HAD HELP FOR SCHIZOPHRENIA, SHE WAS AT THE [facility] AND RECEIVED EXCELLENT CARE AND WOULD GO BACK THERE IF NEEDED. PT REPORTS PLAN TO GO HOME AT DISCHARGE, WOULD LIKE HER HOME HEALTH RESTARTED AND CARY OR PERLA WILL PICK HER UP FOR DISCHARGE HOME. [facility] [phone], SPOKE TO OFE WHO VERIFIED PT IS ACTIVE AND ON HOSPITAL HOLD FOR [facility] SERVICES, NURSING AND PHYSICAL THERAPY. CM TO FOLLOW AND ASSIST NEEDED. FOR DISCHARGE HOME AND RESUPTION OF HOME HEALTH SERVICES, NOTIFY [facility] AT [phone], FAX DISCHARGE INFORMATION TO [facility] AT [phone]. Rec Therapist: Paty Escobar DCPIA - Discharge Planning Initial Assessment Updated by [id number]: Paty Escobar on 05/16/18 12:33 pm * Is the patient Alert and Oriented? Yes * How many steps to enter\\exit or inside your home? NONE * PCP DR. SIN * Pharmacy [facility] * Preadmission Environment Home with Family * ADLs Independent * Equipment None * Other Equipment NO MEDICAL EQUIPMENT PROVIDER PREFERENCE * List name and contact numbers for known caregivers / representatives who currently or will assist patient after discharge: TIM ALAS, PERLA RODGERS, FRIEND, * Verbal permission to speak to the caregivers and representatives has been obtained from the patient. Yes * Community resources currently utilized Home Health * Please name any agencies selected above. [facility], * Additional services required to return to the preadmission environment? No * Can the patient safely return to the preadmission environment? Yes * Has this patient been hospitalized within the prior 30 days at any hospital? Yes Coverage Notice Reviewer: [id number] Escobar Notice Issued Date-Time: 05/17/2018 15:00 Notice Type: Patient Choice Letter Notice Delivered To: Patient Relationship to Patient: Manager Project Name: Delivery Method: HAND - Hand Delivered Desire Days: Prior Verbal Notification: Recipient Understood Notice: Yes Recipient Signature: Yes Med Rec Note Co-signed by Attending: Coverage Notice Comment: ANTONI ESPINAL Reviewer: [id number] Escobar Notice Issued Date-Time: 05/22/2018 8:25 Notice Type: IM Discharge Notice Notice Delivered To: Patient Relationship to Patient: Manager Project Name: Delivery Method: HAND - Hand Delivered Desire Days: Prior Verbal Notification: Recipient Understood Notice: Recipient Signature: Yes Med Rec Note Co-signed by Attending: Coverage Notice Comment: Last DP export: 05/22/18 3:56 p Patient Name: WESLEY GUADARRAMA Page [id number] at 0841 All edits/amendments must be made on the electronic document DICTATION DATE: 05/23/18839 CONE PICKER: ABI 05/23/18839 RPT#: [id number] DC DATE: STATUS: ADM IN [facility] [address] [place] [address] END OF REPORT
--- NOTE | 2018-05-23 09:30 | NUR ---
UNABLE TO GIVE PO MEDS AT THIS TIME RESPONDS TO PAINFUL STIMULI
--- NOTE | 2018-05-23 10:45 | MORECARE ---
CASE MANAGEMENT DISCHARGE SUMMARY PATIENT: WESLEY GUADARRAMA UNIT: [id number] ADM DATE: 05/08/18 AGE: 57 : 56 SEX: F ROOM/BED: D.3313 AUTHOR: ARLEEN,DOC PHYSICIAN: REFERRING PHYSICIAN: NATHANIEL MCCONNELL MD DATE OF SERVICE: 05/23/18 Discharge Plan Patient Name: WESLEY GUADARRAMA Facility: [facility]:[place] : 1960 Planned Disposition: Nursing Facility INDIGO Cert Anticipated Discharge Date: 05/22/18 Discharge Date: Expected LOS: 14 Initial Reviewer: [id number] Initial Review Date: 05/07/2018 Generated: 05/23/18 11:44 am Comments DCP- Discharge Planning Updated by [email or web address]: Paty Escobar on 05/23/18 7:[address] Patient Name: WESLEY GUADARRAMA Encounter No: [id number] : 1960 Primary Insurance: MEDICARE A & B Anticipated DC Date: 05-22-2018 Planned Disposition: Nursing Facility INDIGO Cert External Planned Provider: [facility], LONG TERM CARE MEDICAID BED DCP follow-up note: CM WENT TO PT'S HOME LAST EVENING, 05-22-18, MET WITH CARY PAINTING IN THE HOME. CARY INFORMED CM THAT THE NUMBER LISTED FOR HER IS CORRECT, THAT SHE WORKS AT THE [employer] AND WAS AT WORK WHEN CM CALLED. CARY PROVIDED PHONE NUMBER CORRECTION FOR PERLA RODGERS, . CARY INFORMED CM THAT SHE AND PERLA ARE PT'S FRIENDS, PT DOES LIVE WITH HER. PT DID PROVIDE A HAND WRITTEN NOTE TO CRAY TO TAKE CARE OF PT'S BUSINESS, BUT CARY NOR PERLA HAVE POWER OF ENTRY ANALYST. PT HAS NO LIVING PARENTS AND DOES NOT HAVE CHILDREN. PT DOES HAVE A BROTHER IN [facility]. PT IS TO JOI GUADARRAMA, WHITE MALE, LAST KNOWN TO L[address] ON [address] IN [facility] [facility]. PT HAS NOT HAD CONTACT WITH HER SPOUSE IN MANY YEARS AND ONLY HIM BECAUSE "HE HAD GOOD INSURANCE". PT HAS A NIECE IN [facility]. CM WAS NOT ABLE TO OBTAIN CONTACT INFORMATION FOR PT'S BROTHER IN [facility]. CARY REPORTS THAT SHE IS NOT IN FAVOR OF HOSPICE AND THAT PT HAS FOUGHT THROUGH CANCER BEFORE. CARY REPORTS SHE IS NOT IN FAVOR OF [facility] AND THAT SHE WOULD RATHER BRING PT HOME AND CARE FOR PT AT HOME IF POSSIBLE. CARY WILL VISIT WITH PT AT HOSPITAL. CARY PROVIDED LETTER FROM KAROLINE DE LEON, FOR PT AND ASKED CM TO GIVE TO PT IN HOSITAL. CM DELIVERED LETTER TO PT ON 05-23-18, SPOKE TO PT WHO ONLY ASKED HOW HER DOG, LUCILLE, WAS DOING. PT DID NOT COMMUNICATE FURTHER WITH CM THIS MORNING. ACCORDING TO [facility] AND [facility] REPRESENTATIVES, PT IS NOT ABLE TO SIGN HERSELF FOR [facility] OR HOSPICE CARE DUE TO HER MENTAL STATUS. CM UNABLE TO LOCATE NEXT OF KIN. PT IS OF NO ASSISTANCE IN ATTEMPTING TO LOCATE NEXT OF KIN. CM WAITING ADULT [facility]OTECTIVE SERVICES EVALUATION AND POSSIBLE ASSISTANCE. PATY ESCOBAR, CASE MANAGEMENT DCP- Discharge Planning Updated by [id number]: Paty Escobar on 05/22/18 3:[address] Patient Name: WESLEY GUADARRAMA Encounter No: [id number] : 1960 Primary Insurance: MEDICARE A & B Anticipated DC Date: 05-22-2018 Planned Disposition: Nursing Facility INDIGO Cert External Planned Provider: [facility], LONG TERM CARE MEDICAID BED DCP follow-up note: CM RECEIVED HOSPICE ORDER. CM MET WITH PT IN ROOM, DISCUSSED ORDER FOR HOSPICE. PT STATES SHE THINKS SHE REMEMBERS THE DOCTOR TALKING TO HER ABOUT HAVING CANCER. CM DISCUSSED HOSPICE AVAILABILITY WELL ACCEPTANCE BY [facility] LONG TERM [facility]. PT IN AGREEMENT WITH HOSPICE AND HAS NO PREFERENCE FOR COMPANY PROVIDER. CM ASKED ABOUT NOTIFYING FAMILY. PT STATES SHE WOULD LIKE CM TO CALL TIM ALAS, OR PERLA RODGERS, HER LANDLORDS BOYFRIEND. PT DENIES FURTHER NEEDS AT THIS TIME. CM CALLED TIM ALSA, , SEVERAL TIMES OVER ONE HOUR. THERE WAS NO ANSWER AND NO VOICE MAIL SET UP TO LEAVE A MESSAGE. CM CALLED PERLA RODGERS, FRIEND, , THE LADY THAT ANSWERED REPORTS THIS IS NOT THE NUMBER TO PERLA RODGERS AND SHE DID NOT KNOW PERLA. CM SPOKE TO PT WHO DOES NOT REMEMBER THE PHONE NUMBERS FOR CARY OR PERLA. CM ASKED IF THERE WERE ANY OTHER FAMLY MEMBERS OR FRIENDS TO CALL, PT STATES NO. CM NOTIFIED ADWOA OF [facility], . CM FAXED UPDATE TO [facility] VIA [facility] AT [phone]. CM CALLED [facility], , SPOKE TO KATIE WHO TOOK REFERRAL AND CM FAXED REFERRAL TO [facility] AT [phone]. CM CALLED [employer] [phone], SPOKE TO GALILEO WHO INFORMED CM THAT THE [facility] APPROVAL CAN BE UPDATED TO [facility] WITH UPDATED PAGE 1 FOR FORM 703, HOSPICE ORDER AND CHART NOTE. CM FAXED REQUIRED INFORMATION TO [employer] AT [phone]. CM WAITING UPDATE [facility] SCREENING APPROVAL. CM WAITING ADMISSION DETERMINATION FOR [facility] FROM [facility]. CM WAITING HOSPICE EVALUATION AND ADMISSION DETERMINATION FROM [facility]. Paty Escobar, CASE MANAGEMENT Appended by Paty Escobar on 05/22/2018 16:56 LABOR MEDIATOR: CM RECEIVED [facility] UPDATE DETERMINATION, PT MAY ENTER LONG TERM FOR [facility] / HOSPICE. CM SPOKE TO ADWO[facility] WHO REPORTS PT NEEDS NEXT OF [facility]IN TO SIGN LEGALS FOR [facility] MEDICAID. CM SPOKE TO BRITNEY OF [facility] WHO INFORMED CM THAT PT IS NOT ABLE TO SIGN LEGALS HERSELF AND THEY NEED THE LEGAL NEXT OF KIN TO SIGN PAPERWORK FOR HOSPICE. CM SPOKE TO PT IN ROOM. PT WILL NOT PROVIDE FAMILY INFORMATION. PT HAS REPORTED PREVIOUSLY THAT SHE HIS BUT WILL NOT TELL CM SPOUSE'S NAME OR LAST KNOWN LOCATION. PT CONTINUES TO TELL CM TO CALL JULIA OR PERLA. PT CANNOT PROVIDE BETTER PHONE CONTACT INFORMATION FOR EITHER. KEVKATHARINE NUMBER IS NOT CORRECT, JULIA'S NUMBER DOES NOT GET ANSWERED AND THERE IS NOT VOICE MAIL SET UP. CM UNABLE TO LOCATE PHONE NUMBERS FOR EITHER PERSON REQUESTED BY PT ON THE INTERNET. CM CALLED [facility], , PROVIDED ALLEGATIONS OF PT NOT BEING ABLE TO SIGN FOR HERSELF AND HAS NO LEGAL PERSON TO ASSIST WITH ARRANGING CARE. REPORT #[id number]. PT IS NOT ABLE TO SIGN FOR SHELTER CARE OR HOSPICE CARE. CM UNABLE TO LOCATE NEXT OF KIN. PT IS OF NO ASSISTANCE IN ATTEMPTING TO LOCATE NEXT OF KIN. CM WAITING ADULT PROTECTIVE SERVICES EVALUATION AND POSSIBLE ASSISTANCE. GENEVIEVE FLAHERTY MANAGEMENT DCP- Discharge Planning Updated by [id number]: Paty Escobar on 05/20/18 2:[address] Patient Name: WESLEY GUADARRAMA Encounter No: [id number] : 1960 Primary Insurance: MEDICARE A & B Anticipated DC Date: Planned Disposition: Group Home Facility External Planned Provider: [facility], MEDICARE REHAB BED Discharge Planning Comments: FAX TO [employer] HAD FAILED ON SUNDAY AFTERNOON. CM REFAXED MAXINE SCREENING AND SUPPORTING DOCUMENTS TO [employer] AT [phone]. CM FAXED REFERRAL UPDATE TO [facility] FOR REHAB CONSIDERATION VIA [employer] AT [phone]. CM WAITING [facility] SCREENING AND DETERMINATION FOR LONG TERM FACILITY PLACEMENT; CM WAITING ADMISSION DETERMINATION FROM [facility]. PATY ESCOBAR CASE MANAGEMENT Appended by Paty Escobar on 05/20/2018 15:47 LABOR MEDIATOR: CM RECEIVED [facility] EXEMPTION TO ADMIT TO REHAB IN LONG TERM. CM SPOKE TO ADWOA OF [facility] WHO MET WITH PT AND WILL HAVE FACILITY CONTINUE TO SCREEN FOR ADMISSION. CM FAXED MAXINE EXEMPTION TO [facility] VIA [employer] AT [phone]. CM WAITING ADMISSION DETERMINATION FROM [facility] AND [facility]. GENEVIEVE FLAHERTY DCP- Discharge Planning Updated by [id number]: Paty Escobar on 05/17/18 3:[address] Patient Name: WESLEY GUADARRAMA Admission Status: ER Accout number: [id number] Admission Date: 05-08-2018 : 1960 Admission Diagnosis:UNSPECIFIED ABDOMINAL PAIN Attending: NATHANIEL MCCONNELL Current LOS: 9 Anticipated DC Date: Planned Disposition: Group Home Facility Primary Insurance: MEDICARE A & B PLANNED EXTERNAL PROVIDER: [facility], MEDICARE REHAB BED Discharge Planning Comments: CM RECEIVED ORDER FOR LONG TERM REHAB PLACEMENT, DISCUSSED WITH PT IN ROOM. PT REQUESTS REFERRAL TO [facility] TO BE CLOSER TO HER HOME. CHOICE SIGNED. [facility] COMPLETED, SIGNATURES OBTAINED. CM FAXED MAXINE SCREENING AND SUPPORTING DOCUMENTS TO [employer] AT [phone]. CM FAXED REFERRAL TO [facility] FOR REHAB CONSIDERATION, . CM CALLED [facility], , SPOKE TO PERLA AND NOTIFIED OF REFERRAL. CM WAITING [facility] SCREENING AND DETERMINATION FOR LONG TERM FACILITY PLACEMENT; CM WAITING ADMISSION DETERMINATION FROM [facility] AND REHAB. PATY ESCOBAR, CASE MANAGEMENT Java Web Architect: Paty Escobar DCP- Discharge Planning Updated by [id number]: Paty Escobar on 05/16/18 11:[address] Patient Name: WESLEY GUADARRAMA Admission Status: ER Accout number: [id number] Admission Date: 05-08-2018 : 1960 Admission Diagnosis:UNSPECIFIED ABDOMINAL PAIN Attending: NATHANIEL MCCONNELL Current LOS: 8 Anticipated DC Date: Planned Disposition: Home with Home Health Primary Insurance: MEDICARE A & B PLANNED EXTERNAL PROVIDER: [facility] Discharge Planning Comments: CM MET WITH PT IN ROOM TO DISCUSS DISCHARGE PLANNING AND NEEDS. PT REPORTS LIVING AT HOME INDEPENDENTLY WITH CARY DUMONT, AND LANDLORPERLA LORA. PT HAS NO MEDICAL EQUIPMENT AND NO PROVIDER PREFERENCE. PT REPORTS HAVING NURSING AND THERAPY WITH [facility]. CM DISCUSSED AVAILABILITY OF HOME HEALTH, REHAB SERVICES AND MEDICAL EQUIPMENT. PT THINKS HER SCHIZOPHRENIA IS BETTER NOW AND SHE DOES NOT NEED HELP FOR THAT. PT STATES THE LAST TIME SHE HAD HELP FOR SCHIZOPHRENIA, SHE WAS AT [facility] AND RECEIVED EXCELLENT CARE AND WOULD GO BACK THERE IF NEEDED. PT REPORTS PLAN TO GO HOME AT DISCHARGE, WOULD LIKE HER HOME HEALTH RESTARTED AND CARY OR PERLA WILL PICK HER UP FOR DISCHARGE HOME. [facility] [phone], SPOKE TO OFE WHO VERIFIED PT IS ACTIVE AND ON HOSPITAL HOLD FOR [facility], NURSING AND PHYSICAL THERAPY. CM TO FOLLOW AND ASSIST NEEDED. FOR DISCHARGE HOME AND RESUPTION OF HOME HEALTH SERVICES, NOTIFY [facility] AT [phone], FAX DISCHARGE INFORMATION TO [facility] AT [phone]. Java Web Architect: Paty Escobar DCPIA - Discharge Planning Initial Assessment Updated by [id number]: Paty Escobar on 05/23/18 10:33 am * Is the patient Alert and Oriented? Yes * How many steps to enter\\exit or inside your home? NONE * PCP DR. SIN * Pharmacy [facility] * Preadmission Environment Home with Family * ADLs Independent * Equipment None * Other Equipment NO MEDICAL EQUIPMENT PROVIDER PREFERENCE * List name and contact numbers for known caregivers / representatives who currently or will assist patient after discharge: CARY PAINTING, FRIEND, PERLA RODGERS, FRIEND, * Verbal permission to speak to the caregivers and representatives has been obtained from the patient. Yes * Community resources currently utilized Home Health * Please name any agencies selected above. [facility], * Additional services required to return to the preadmission environment? No * Can the patient safely return to the preadmission environment? Yes * Has this patient been hospitalized within the prior 30 days at any hospital? Yes Coverage Notice Reviewer: [id number] Zamzam Escobar Notice Issued Date-Time: 05/17/2018 15:00 Notice Type: Patient Choice Letter Notice Delivered To: Patient Relationship to Patient: Web Analytics Developer Name: Delivery Method: HAND - Hand Delivered Desire Days: Prior Verbal Notification: Recipient Understood Notice: Yes Recipient Signature: Yes Med Rec Note Co-signed by Attending: Coverage Notice Comment: ANTONI ESPINAL Reviewer: [id number] Zamzam Escobar Notice Issued Date-Time: 05/22/2018 8:25 Notice Type: IM Discharge Notice Notice Delivered To: Patient Relationship to Patient: Web Analytics Developer Name: Delivery Method: HAND - Hand Delivered Desire Days: Prior Verbal Notification: Recipient Understood Notice: Recipient Signature: Yes Med Rec Note Co-signed by Attending: Coverage Notice Comment: Last DP export: 05/23/18 7:40 a Patient Name: WESLEY GUADARRAMA Page [id number] at 1045 All edits/amendments must be made on the electronic document DICTATION DATE: 05/23/18 1044 DIVING BOARD ASSEMBLER: ABI 05/23/18 1044 RPT#: [id number] DC DATE: STATUS: ADM IN [facility] [address] [place] [address] END OF REPORT
--- NOTE | 2018-05-23 11:23 | NUR ---
FSBS 192 REGULAR INSULIN 2 UNITS GIVEN SQ ABDOMEN PT UNABLE TO TAKE PO MEDS
[2018-05-23 11:26] VITALS: BP 148/94
--- NOTE | 2018-05-23 11:43 | NUR ---
DR VEGA APPROACHED US THIS AM INQUIRING ABOUT THE PATIENT BEING ABLE TO HAVE HER DOG BROUGHT UP HERE TO SEE HER ONE LAST TIME. I EXPLAINED I WOULD HAVE TO GET APPROVAL FOR THAT. CALL PLACED TO CM OFFICE. TATA MARIE RN, DIRECTOR OF CASEMANAGEMENT CALLED BACK, EXPLAINED THE SITUTATION AND REQUEST TO HER. WAITED FOR HER TO TALK TO WHOMEVER SHE NEEDED TO TALK TO FOR APPROVAL, AND SHE CALLED BACK GIVING APPROVAL. THE LANDLADY WILL HAVE TO CARRY HER DOG UP TO THE ROOM, VISIT BEHIND CLOSED DOORS, AND THEN WALK STRAIGHT OUT OF THE HOSPITAL. THEY ARE NOT PERMITTED TO WANDER THE HOSPITAL WITH THE DOG. I WENT TO THE ROOM TO EXPLAIN THIS TO THE INK TECHNICIAN AND LANDLADY, BUT THEY HAD ALREADY LEFT. I RELAYED THIS TO HER BEDSIDE NURSE, ÁLVARO BOWDEN, TO THE BRAINER, ÁLVARO SANDHU NEWSPAPER DISTRIBUTOR SUPERVISOR, AND RANDY, THE OTHER CASEMANAGER ON THE FLOOR. RANDY WILL PLACE A CALL TO THE PATIENTS CHRISTELLE TO LET HER KNOW.
[2018-05-23 15:49] VITALS: BP 161/94
--- NOTE | 2018-05-23 19:49 | NUR ---
RESUMED CAER OF PT, LYING IN BED RESPIRATIONS EVEN AND UNLABORED ON 4LPM VIA NC. EYES ARE OPEN BUT REMAINS UNRESPONSIVE. [address] ON TELEMETRY. GALVEZ TO GRAVITY. NO NEEDS NOTED AT THIS TIME. CALL LIGHT IN REACH. SEE NURSE ASSESSMENT.
[2018-05-23 20:12] VITALS: BP 121/83
[2018-05-24] VITALS: BP 143/90
[2018-05-24 05:00] VITALS: BP 151/92
[2018-05-24 08:45] VITALS: BP 147/99
[2018-05-24 12:01] VITALS: BP 127/88
--- NOTE | 2018-05-24 14:09 | NUR ---
Nutrition follow-up: Pt with very little po intake of consistent CHO diet due to lethargy. Noted hospice eval. If pt does not go into hospice, will need to start nutrition support due to pt not meeting nutritiona needs at this time. RDN following.
[2018-05-24 15:57] VITALS: BP 111/77
--- NOTE | 2018-05-24 19:30 | NUR ---
PT IN BED. AROUSES TO VOICE NONVERBAL BUT DOES MAKE EYE CONTACT. NO ACUTE DISTRESS NOTED AT THIS TIME.
[2018-05-24 20:00] VITALS: BP 108/79
--- NOTE | 2018-05-24 22:19 | NUR ---
PT IS UNABLE TO SWALLOW MEDS AT THIS TIME.
[2018-05-25] VITALS: BP 113/80
[2018-05-25 04:00] VITALS: BP 108/71
--- NOTE | 2018-05-25 05:44 | NUR ---
RESTING IN BED WITH EYES CLOSED. NO S/S OF DISTRESS OBSERVED, WILL CONT. POC.
[2018-05-25 06:11] LABS: ANION GAP 22.7 mmol/L (8-16); CALCIUM 8.7 mg/dL (8.5-10.1); CARBON DIOXIDE 19.7 mmol/L (21.0-32.0); CREATININE - SERUM 1.7 mg/dL (0.6-1.3); POTASSIUM - SERUM 3.4 mmol/L (3.5-5.1)
[2018-05-25 06:41] LABS: HEMOGLOBIN 10.8 g/dL (12-16); MCH 25.7 pg (26.0-34.0); MCV 85.7 fL (80.0-100.0); MEAN PLATELET VOLUME 10.4 fL (7.4-10.4); PLATELET COUNT 219 10x3/uL (130-400); RDW 19.4 % (11.5-14.5); WBC 31.2 10x3/uL (4.8-10.8)
[2018-05-25 07:19] LABS: LYMPHOCYTES 6 % (15-50); MONOCYTES 6 % (2-11); NEUTROPHILS 85 % (40-80); PLATELET ESTIMATE NORMAL; PLATELET MORPHOLOGY NORMAL PLT MORPH
[2018-05-25 08:46] VITALS: BP 110/72
--- NOTE | 2018-05-25 09:18 | NUR ---
TURNED AND REPOSITIONED. TO LETHARGIC TO TAKE ANY ORAL INTAKE. WILL CONT. PLAN OF CARE.
--- NOTE | 2018-05-25 13:15 | NUR ---
TO CT BY BED.
[2018-05-25 15:30] VITALS: BP 79/51
--- NOTE | 2018-05-25 15:30 | NUR ---
PT ARRIVED ON UNIT VIA BED, HOOKED TO MONITORS, RR 40, HR 154, O2 SAT 70% ON 6L NC, B/P IN THE 70'S, FAMILY NOTIFIED OF PT CURRENT STATUS, INTUBATION ONLY AT THIS TIME,
--- NOTE | 2018-05-25 15:34 | NUR ---
REPORT CALLED. TRANSFERED TO ICU RM. [id number].
--- NOTE | 2018-05-25 15:45 | NUR ---
PT PLACED ON 100% BIPAP AT THIS TIME, O2 SAT NOW IN THE 90'S
--- NOTE | 2018-05-25 16:00 | NUR ---
DR. MCCONNELL NOTIFIED OF PT CODE STATUS AND CRITICAL LAB, NEW ORDERS RECIEVED,
--- NOTE | 2018-05-25 16:15 | NUR ---
DR. MCCONNELL AT BEDSIDE, NEW ORDERS RECIEVED, PT NOW COMFORT MEASURES ONLY, DR. BELTRAN AT BEDSIDE, CVL PLACED IN LEFT CHEST, PT TOLERATED WELL
--- NOTE | 2018-05-25 16:30 | NUR ---
HOSPICE CONSULT ORDERED AT THIS TIME,
--- NOTE | 2018-05-25 17:09 | NUR ---
ATTEMPTING TO CALL REPORT TO FLOOR NURSE FOR ROOM 2106...ON HOLD.
--- NOTE | 2018-05-25 17:34 | NUR ---
REPORT CALLED TO FLOOR NURSE.
--- NOTE | 2018-05-25 17:43 | NUR ---
JUST RECIEVED REPORT FROM ICU. PATIENT IS ARRIVING TO THE FLOOR AT THIS TIME.
--- NOTE | 2018-05-25 17:52 | NUR ---
PATIENT HAS ARRIVED FROM ICU. SHE IS ON COMFORT CARE AND HAS A DNR ORDER. THERE IS A CONSULT FOR HOSPICE. PATIENT IS RESTING AT THIS TIME, HER EYES ARE FIXED, AND SHE IS BREATHING WITH OPEN MOUTH. NO FAMILY AT BEDSIDE AT THIS TIME.
--- NOTE | 2018-05-25 19:45 | NUR ---
REPORT RECEIVED. EVENING ROUNDS COMPLETED. PT SITTING UP IN BED WITH EYES OPEN, RR EVEN AND UNLABORED. BED IN LOW POSITION. INTRODUCED SELF TO PT. PT FOLLOWS SOUND OF VOICE WITH EYES, NO VERBAL RESPONSE NOTED. NO S/S OF DISTRESS. CALL LIGHT IN REACH. WILL CTM.
[2018-05-25 20:00] VITALS: BP 134/82
--- NOTE | 2018-05-25 23:34 | NUR ---
PT SITTING UP IN BED WITH EYES OPEN, RR SHALLOW AND RAPID. PT HAD INCONTINENT EPISODE WITH BLOODY STOOL. PT HAS BEEN PROVIDED BED BATH AND LINEN CHANGE. CALL LIGHT IS IN REACH. WILL CTM.
[2018-05-26] VITALS (7 sets, daily range): BP systolic 108–123; BP diastolic 69–88
--- NOTE | 2018-05-26 04:44 | NUR ---
RN ROUNDS. ASSESSED. PT RESTING WITH NON LABORED RESPIRATIONS, CALL LIGHT IN REACH. MONITOR AND CPOC.
[2018-05-26 05:56] LABS: BASOPHILS 0.3 % (0-2); EOSINOPHILS 0 % (0-7); HEMATOCRIT 35.5 % (36.0-48.0); HEMOGLOBIN 10.6 g/dL (12-16); IMMATURE GRANULOCYTES 2.1 % (0-5); LYMPHOCYTES 14.3 % (15-50); MCH 25.7 pg (26.0-34.0); MCHC 29.9 g/dL (31.0-37.0); MCV 86.2 fL (80.0-100.0); MONOCYTES 6.4 % (2-11); NEUTROPHILS 76.9 % (40-80); PLATELET COUNT 140 10x3/uL (130-400); RBC 4.12 10x6/uL (4.00-5.40); RDW 20.5 % (11.5-14.5); WBC 45.5 10x3/uL (4.8-10.8)
[2018-05-26 06:06] LABS: CALCIUM 8.5 mg/dL (8.5-10.1); CARBON DIOXIDE 17.1 mmol/L (21.0-32.0); CREATININE - SERUM 1.9 mg/dL (0.6-1.3); POTASSIUM - SERUM 4.1 mmol/L (3.5-5.1)
--- NOTE | 2018-05-26 06:40 | NUR ---
ADMINISTERED ORDERED SUPPOSITORY FOR PT FEVER OF 101.2. WILL CTM.
--- NOTE | 2018-05-26 07:30 | NUR ---
RECEIVED RESTING POSITIONED ON LEFT SIDE. RESP SHALLOW AND RAPID WITH DIMINISHED LUNG SOUNDS THROUGHOUT. OPENED EYES WHEN NAME CALLED. NO VERBAL RESPONSE. UNABLE TO SWALLOW ANY LIQUIDS AND MEDS WERE NOT ATTEMPTED. HAD SMALL AMT LIQUID STOOL MOSTLY RED IN COLOR. ASSESSMENT COMPLETED. BED IN LOWEST POSITION, SIDERAILS UP X 2 AND CALL LIGHT IN REACH. CONTINUE POC
--- NOTE | 2018-05-26 13:06 | NUR ---
RESP UL ON . LENNY ADAIR. CALL LIGHT IN REACH. WILL CONT. PLAN OF CARE.
--- NOTE | 2018-05-26 17:35 | MORECARE ---
CASE MANAGEMENT DISCHARGE SUMMARY PATIENT: WESLEY GUADARRAMA UNIT: [id number] ADM DATE: 05/08/18 AGE: 57 : 56 SEX: F ROOM/BED: D.2106 AUTHOR: ARLEEN,DOC PHYSICIAN: REFERRING PHYSICIAN: NATHANIEL VAUGHN MD DATE OF SERVICE: 05/26/18 Discharge Plan Patient Name: WESLEY GUADARRAMA Facility: [facility]:[place] : 1960 Planned Disposition: Nursing Facility INDIGO Cert Anticipated Discharge Date: 05/22/18 Discharge Date: Expected LOS: 14 Initial Reviewer: [id number] Initial Review Date: 05/07/2018 Generated: 05/26/18 6:35 pm Comments DCP- Discharge Planning Updated by [id number]: Juanita Pan on 05/26/18 4:[address] ORDER RECEIVED: closest living relative agreeable to hospice. CM reviewed chart and all of [employer] notes. Dr. Vaughn reported that he spoke to Josh Ruiz who informed him that he was patient's nephew. CM contacted Josh Ruiz and asked him if he was the patient's nephew. He verified yes. CM questioned why Charline didn't give this information to Dustin when he went to their home on May 22? SARA also stated that Charline reported that Josh was a friend and that she reported the only living relatives she knew of was a brother, a niece, and a estranged . He stated he was not sure. SARA asked several more times if he was indeed the patient's nephew and every time he answered yes. SARA then asked if he was available to come sign legals for the patient to be admitted into hospice services. He at that time told cm that he would have to talk with Charline and get back with me. CM informed him that since he was the patient's nephew that it was his decision and he would have to be the one to sign the legals to place her into hospice. He at that point told me that Charline was in a class and he couldn't come to the hospital today and he would deal with this tomorrow and talk to Dustin. word processing supervisor also tried to contact Josh to see if she could get him to come sign legals today with no answer. Juanita Pan RN, [facility] DCP- Discharge Planning Updated by [id number]: Paty Escobar on 05/23/18 7:[address] Patient Name: WESLEY GUADARRAMA Encounter No: [id number] : 1960 Primary Insurance: MEDICARE A & B Anticipated DC Date: 05-22-2018 Planned Disposition: Nursing Facility INDIGO Cert External Planned Provider: [facility] TERM CARE MEDICAID BED DCP follow-up note: CM WENT TO PT'S HOME LAST EVENING, 05-22-18, MET WITH CHARLINE GARIMA IN THE HOME. CHARLINE INFORMED CM THAT THE NUMBER LISTED FOR HER IS CORRECT, THAT SHE WORKS AT THE [employer] AND WAS AT WORK WHEN CM CALLED. CHARLINE PROVIDED PHONE NUMBER CORRECTION FOR JOSH RUIZ, . CHARLINE INFORMED CM THAT SHE AND JOSH ARE PT'S FRIENDS, PT DOES LIVE WITH HER. PT DID PROVIDE A HAND WRITTEN NOTE TO CHARLINE TO TAKE CARE OF PT'S BUSINESS, BUT CHARLINE NOR JOSH HAVE POWER OF SHOOK SPLICER. PT HAS NO LIVING PARENTS AND DOES NOT HAVE CHILDREN. PT DOES HAVE A BROTHER IN [facility]. PT IS TO JOI GUADARRAMA, WHITE MALE, LAST KNOWN TO LIVE SOMEWHERE ON [facility] IN [facility]. PT HAS NOT HAD CONTACT WITH HER SPOUSE IN MANY YEARS AND ONLY HIM BECAUSE "HE HAD GOOD INSURANCE". PT HAS A NIECE IN [facility]. CM WAS NOT ABLE TO OBTAIN CONTACT INFORMATION FOR PT'S BROTHER IN [facility]. CHARLINE REPORTS THAT SHE IS NOT IN FAVOR OF HOSPICE AND THAT PT HAS FOUGHT THROUGH CANCER BEFORE. CHARLINE REPORTS SHE IS NOT IN FAVOR OF [facility] CARE AND THAT SHE WOULD RATHER BRING PT HOME AND CARE FOR PT AT HOME IF POSSIBLE. CHARLINE WILL VISIT WITH PT AT HOSPITAL. CHARLINE PROVIDED LETTER FROM KAROLINE DE LEON, FOR PT AND ASKED CM TO GIVE TO PT IN [facility]. CM DELIVERED LETTER TO PT ON 05-23-18, SPOKE TO PT WHO ONLY ASKED HOW HER DOG, LUCILLE, WAS DOING. PT DID NOT COMMUNICATE FURTHER WITH CM THIS MORNING. ACCORDING TO [facility] AND [facility] REPRESENTATIVES, PT IS NOT ABLE TO SIGN HERSELF FOR FISHING TOOL OPERATOR CARE OR HOSPICE CARE DUE TO HER MENTAL STATUS. CM UNABLE TO LOCATE NEXT OF KIN. PT IS OF NO ASSISTANCE IN ATTEMPTING TO LOCATE NEXT OF KIN. CM WAITING ADULT PROTECTIVE SERVICES EVALUATION AND POSSIBLE ASSISTANCE. PATY ESCOBAR, CASE MANAGEMENT DCP- Discharge Planning Updated by [id number]: Paty Escobar on 05/22/18 3:[address] Patient Name: WESLEY GUADARRAMA Encounter No: [id number] : 1960 Primary Insurance: MEDICARE A & B Anticipated DC Date: 05-22-2018 Planned Disposition: Nursing Facility INDIGO Cert External Planned Provider: [facility], LONG TERM CARE MEDICAID BED DCP follow-up note: CM RECEIVED HOSPICE ORDER. CM MET WITH PT IN ROOM, DISCUSSED ORDER FOR HOSPICE. PT STATES SHE THINKS SHE REMEMBERS THE DOCTOR TALKING TO HER ABOUT HAVING CANCER. CM DISCUSSED HOSPICE AVAILABILITY WELL ACCEPTANCE BY [facility]. PT IN AGREEMENT WITH HOSPICE AND HAS NO PREFERENCE FOR COMPANY PROVIDER. CM ASKED ABOUT NOTIFYING FAMILY. PT STATES SHE WOULD LIKE CM TO CALL TIM ALAS, OR JOSH RUIZ, [facility] BOYFRIEND. PT DENIES FURTHER NEEDS AT THIS TIME. CM CALLED TIM ALAS, , SEVERAL TIMES OVER ONE HOUR. THERE WAS NO ANSWER AND NO VOICE MAIL SET UP TO LEAVE A MESSAGE. CM CALLED JOSH RUIZ, FRIEND, , THE LADY THAT ANSWERED REPORTS THIS IS NOT THE NUMBER TO JOSH RUIZ AND SHE DID NOT KNOW JOSH. CM SPOKE TO PT WHO DOES NOT REMEMBER THE PHONE NUMBERS FOR CHARLINE OR JOSH. CM ASKED IF THERE WERE ANY OTHER FAMLY MEMBERS OR FRIENDS TO CALL, PT STATES NO. CM NOTIFIED [facility] OF [facility], . CM FAXED UPDATE TO [facility] VIA [employer] AT [phone]. CM CALLED [facility], , SPOKE TO KATIE WHO TOOK REFERRAL AND CM FAXED REFERRAL TO [facility] AT [phone]. CM CALLED [facility] [phone], SPOKE TO GALILEO WHO INFORMED CM THAT THE [place] APPROVAL CAN BE UPDATED TO FISHING TOOL OPERATOR CARE HOSPICE WITH UPDATED PAGE 1 FOR FORM 703, HOSPICE ORDER AND CHART NOTE. CM FAXED REQUIRED INFORMATION TO [facility] AT [phone]. CM WAITING UPDATE [facility] SCREENING APPROVAL. CM WAITING ADMISSION DETERMINATION FOR FISHING TOOL OPERATOR CARE FROM [facility]. CM WAITING HOSPICE EVALUATION AND ADMISSION DETERMINATION FROM [facility]. Paty Escobar, CASE MANAGEMENT Appended by Paty Escobar on 05/22/2018 16:56 SHEET SEWER: CM RECEIVED [facility] UPDATE DETERMINATION, PT MAY ENTER [facility] FOR [facility] CARE / HOSPICE. CM SPOKE TO [facility] WHO REPORTS PT NEEDS NEXT OF KIN TO SIGN LEGALS FOR [facility] CARE MEDICAID. CM SPOKE TO BRITNEY OF [facility] WHO INFORMED CM THAT PT IS NOT ABLE TO SIGN LEGALS HERSELF AND THEY NEED THE LEGAL NEXT OF KIN TO SIGN PAPERWORK FOR HOSPICE. CM SPOKE TO PT IN ROOM. PT WILL NOT PROVIDE FAMILY INFORMATION. PT HAS REPORTED PREVIOUSLY THAT SHE HIS BUT WILL NOT TELL CM SPOUSE'S NAME OR LAST KNOWN LOCATION. PT CONTINUES TO TELL CM TO CALL JULIA OR JOSH. PT CANNOT PROVIDE BETTER PHONE CONTACT INFORMATION FOR EITHER. KEVINS NUMBER IS NOT CORRECT, JULIA'S NUMBER DOES NOT GET ANSWERED AND THERE IS NOT VOICE MAIL SET UP. CM UNABLE TO LOCATE PHONE NUMBERS FOR EITHER PERSON REQUESTED BY PT ON THE INTERNET. CM CALLED [facility], , PROVIDED ALLEGATIONS OF PT NOT BEING ABLE TO SIGN FOR HERSELF AND HAS NO LEGAL PERSON TO ASSIST WITH ARRANGING CARE. REPORT #[id number]. PT IS NOT ABLE TO SIGN FOR [facility] CARE OR HOSPICE CARE. CM UNABLE TO LOCATE NEXT OF KIN. PT IS OF NO ASSISTANCE IN ATTEMPTING TO LOCATE NEXT OF KIN. CM WAITING ADULT PROTECTIVE SERVICES EVALUATION AND POSSIBLE ASSISTANCE. PATY ESCOBAR, CASE MANAGEMENT DCP- Discharge Planning Updated by [id number]: Paty Escobar on 05/20/18 2:[address] Patient Name: WESLEY GUADARRAMA Encounter No: [id number] : 1960 Primary Insurance: MEDICARE A & B Anticipated DC Date: Planned Disposition: [facility] Facility External Planned Provider: [facility], MEDICARE REHAB BED Discharge Planning Comments: FAX TO [facility] HAD FAILED ON SUNDAY AFTERNOON. CM REFAXED MAXINE SCREENING AND SUPPORTING DOCUMENTS TO [facility] AT [phone]. CM FAXED REFERRAL UPDATE TO [facility] FOR REHAB CONSIDERATION VIA [facility] AT [phone]. CM WAITING [facility] SCREENING AND DETERMINATION FOR [facility] FACILITY PLACEMENT; CM WAITING ADMISSION DETERMINATION FROM [facility]. PATY ESCOBAR, CASE MANAGEMENT Appended by Paty Escobar on 05/20/2018 15:47 SHEET SEWER: CM RECEIVED [facility] EXEMPTION TO ADMIT TO REHAB IN [place]. CM SPOKE TO ADWOA OF [facility] WHO MET WITH PT AND WILL HAVE FACILITY CONTINUE TO SCREEN FOR ADMISSION. CM FAXED MAXINE EXEMPTION TO [facility] VIA [facility] AT [phone]. CM WAITING ADMISSION DETERMINATION FROM [facility]. PATY ESCOBAR CASE MANAGEMENT DCP- Discharge Planning Updated by [id number]: Paty Escobar on 05/17/18 3:[address] Patient Name: WESLEY GUADARRAMA Admission Status: ER Accout number: [id number] Admission Date: 05-08-2018 : 1960 Admission Diagnosis:UNSPECIFIED ABDOMINAL PAIN Attending: NATHANIEL VAUGHN Current LOS: 9 Anticipated DC Date: Planned Disposition: [facility] Facility Primary Insurance: MEDICARE A & B PLANNED EXTERNAL PROVIDER: [facility], MEDICARE REHAB BED Discharge Planning Comments: CM RECEIVED ORDER FOR [place] REHAB PLACEMENT, DISCUSSED WITH PT IN ROOM. PT REQUESTS REFERRAL TO [facility] TO BE CLOSER TO HER HOME. CHOICE SIGNED. [facility] COMPLETED, SIGNATURES OBTAINED. CM FAXED MAX[facility] SCREENING AND SUPPORTING DOCUMENTS TO [facility] AT [phone]. CM FAXED REFERRAL TO [facility] FOR REHAB CONSIDERATION, . CM CALLED [facility], , SPOKE TO JOSH AND NOTIFIED OF REFERRAL. CM WAITING [facility] SCREENING AND DETERMINATION FOR [place] FACILITY PLACEMENT; CM WAITING ADMISSION DETERMINATION FROM [facility]. PATY ESCOBAR, CASE MANAGEMENT Certified Technician Specialist: Paty Escobar DCP- Discharge Planning Updated by [id number]: Paty Escobar on 05/16/18 11:[address] Patient Name: WESLEY GUADARRAMA Admission Status: ER Accout number: [id number] Admission Date: 05-08-2018 : 1960 Admission Diagnosis:UNSPECIFIED ABDOMINAL PAIN Attending: NATHANIEL VAUGHN Current LOS: 8 Anticipated DC Date: Planned Disposition: Home with Home Health Primary Insurance: MEDICARE A & B PLANNED EXTERNAL PROVIDER: [facility] Discharge Planning Comments: CM MET WITH PT IN ROOM TO DISCUSS DISCHARGE PLANNING AND NEEDS. PT REPORTS LIVING AT HOME INDEPENDENTLY WITH CHARLINE DUMONT, AND JOSH OLSON. PT HAS NO MEDICAL EQUIPMENT AND NO PROVIDER PREFERENCE. PT REPORTS HAVING NURSING AND THERAPY WITH [facility]. CM DISCUSSED AVAILABILITY OF HOME HEALTH, REHAB SERVICES AND MEDICAL EQUIPMENT. PT THINKS HER SCHIZOPHRENIA IS BETTER NOW AND SHE DOES NOT NEED HELP FOR THAT. PT STATES THE LAST TIME SHE HAD HELP FOR SCHIZOPHRENIA, SHE WAS AT [facility] AND RECEIVED EXCELLENT CARE AND WOULD GO BACK THERE IF NEEDED. PT REPORTS PLAN TO GO HOME AT DISCHARGE, WOULD LIKE HER HOME HEALTH RESTARTED AND CHARLINE OR JOSH WILL PICK HER UP FOR DISCHARGE HOME. CM CALLED [facility] [phone], SPOKE TO OFE WHO VERIFIED PT IS ACTIVE AND ON HOSPITAL HOLD FOR [facility], NURSING AND PHYSICAL THERAPY. CM TO FOLLOW AND ASSIST NEEDED. FOR DISCHARGE HOME AND RESUPTION OF HOME HEALTH SERVICES, NOTIFY [facility] AT [phone], FAX DISCHARGE INFORMATION TO [facility] AT [phone]. Certified Technician Specialist: Paty Escobar DCPIA - Discharge Planning Initial Assessment Updated by [id number]: Paty Escobar on 05/23/18 10:33 am * Is the patient Alert and Oriented? Yes * How many steps to enter\\exit or inside your home? NONE * PCP DR. SIN * Pharmacy [facility] * Preadmission Environment Home with Family * ADLs Independent * Equipment None * Other Equipment NO MEDICAL EQUIPMENT PROVIDER PREFERENCE * List name and contact numbers for known caregivers / representatives who currently or will assist patient after discharge: CHARLINE PAINTING, FRIEND, JOSH RUIZ, FRIEND, * Verbal permission to speak to the caregivers and representatives has been obtained from the patient. Yes * Community resources currently utilized Home Health * Please name any agencies selected above. [facility], * Additional services required to return to the preadmission environment? No * Can the patient safely return to the preadmission environment? Yes * Has this patient been hospitalized within the prior 30 days at any hospital? Yes Coverage Notice Reviewer: [id number] - Paty Escobar Notice Issued Date-Time: 05/17/2018 15:00 Notice Type: Patient Choice Letter Notice Delivered To: Patient Relationship to Patient: Supervisor Dials Name: Delivery Method: HAND - Hand Delivered Desire Days: Prior Verbal Notification: Recipient Understood Notice: Yes Recipient Signature: Yes Med Rec Note Co-signed by Attending: Coverage Notice Comment: ANTONI ESPINAL Reviewer: [id number] Zamzam Escobar Notice Issued Date-Time: 05/22/2018 8:25 Notice Type: IM Discharge Notice Notice Delivered To: Patient Relationship to Patient: Supervisor Dials Name: Delivery Method: HAND - Hand Delivered Desire Days: Prior Verbal Notification: Recipient Understood Notice: Recipient Signature: Yes Med Rec Note Co-signed by Attending: Coverage Notice Comment: Last DP export: 05/23/18 9:44 a Patient Name: WESLEY GUADARRAMA Page [id number] at 1730 All edits/amendments must be made on the electronic document DICTATION DATE: 05/26/181734 [place] COUNSEL: ABI 05/26/185 RPT#: [id number] DC DATE: STATUS: ADM IN [facility] [address] [place] [address] END OF REPORT
--- NOTE | 2018-05-26 19:10 | NUR ---
REPORT RECEIVED. EVENING ROUNDS COMPLETED. PT SITTING UP IN BED WITH EYES OPEN, RR EVEN AND UNLABORED. ORDERED ANTIBIOTICS INFUSING THROUGH LEFT SUBCLAVIAN ACCESS ORDERED. NO S/S OF DISTRESS NOTED. BED IN LOW POSITION. SIDE RAILS UP X2. CALL LIGHT IN REACH. WILL CTM.
--- NOTE | 2018-05-26 23:08 | NUR ---
CALLED DR MCCONNELL TO CONFIRM PT'S CODE STATUS AND WAS INFORMED SHE IS A DNR. INFORMED DR MCCONNELL OF PT'S RAPID BREATHING AND WAS NOT GIVEN ANY ORDERS THIS WOULD CAUSE A MORE RAPID DECLINE IN PT'S CONDITION. WILL CTM.
--- NOTE | 2018-05-26 23:14 | NUR ---
ADMINISTERED ORDERED ACETAMINOPHEN SUPPOSITORY FOR PT TEMP OF 101.7 TYMPANIC
[2018-05-27 03:50] VITALS: BP 96/64
--- NOTE | 2018-05-27 04:21 | NUR ---
PT PALE AND POORLY RESPONSIVE TO STIMULI. HR 150-160'S. AWARE AND HAS SAID NO TO PT RECIEVING ANYTHING FOR HR OR HER PERIODS OF DISTRESSED BREATHING. MONITOR AND CPOC.
[2018-05-27 05:57] LABS: HEMATOCRIT 34.8 % (36.0-48.0); HEMOGLOBIN 10.3 g/dL (12-16); RBC 3.94 10x6/uL (4.00-5.40); WBC 38.2 10x3/uL (4.8-10.8)
[2018-05-27 05:58] LABS: MCH 26.1 pg (26.0-34.0); MCHC 29.6 g/dL (31.0-37.0); MCV 88.3 fL (80.0-100.0); PLATELET COUNT 77 10x3/uL (130-400); RDW 20.9 % (11.5-14.5)
[2018-05-27 06:04] LABS: CALCIUM 8.3 mg/dL (8.5-10.1); POTASSIUM - SERUM 4.3 mmol/L (3.5-5.1)
[2018-05-27 06:46] LABS: ANION GAP 25.3 mmol/L (8-16); CREATININE - SERUM 2.7 mg/dL (0.6-1.3)
--- NOTE | 2018-05-27 07:41 | NUR ---
PT UNRESPONSIVE RESP VERY SHALLOW (GUPPY BREATHING) 02 PER NONREBREATHER 100% LEFT PUPIL FIXED SKIN PALE COOL AND CLAMMY MONITOR SHOWS SINUS TACH RATE 128 PT IS DNR WILL CONTINUE TO MONITOR
[2018-05-27 08:00] LABS: ANISOCYTOSIS OCC; HYPOCHROMASIA OCC; LYMPHOCYTES 6 % (15-50); MONOCYTES 7 % (2-11); NEUTROPHILS 77 % (40-80); PLATELET ESTIMATE DECREASED; SMUDGE CELLS 1+
--- NOTE | 2018-05-27 08:00 | NUR ---
0745 NOTIFIED BY JOB PLACEMENT SPECIALIST THAT PT IS ASYTOLE. ARRIVED INTO ROOM AND PT NOT BREATHING. NO PULSE. CODE CALLED CPR STARTED FOR 1 MIN BUT THEN STOPPED DUE TO ORDER BY PHYSICIAN(DR. Fisher) THAT PT IS A DNR. CPR STOPPED. NO BREATHING NOR PULSE. Viky MYESR APN NOTIFIED AND ALSO DR. FISHER OF PTS . LEFT A MESSAGE FOR NEXT OF KIN. HOUSE SUP NOTIFIED. ALSO.
--- NOTE | 2018-05-27 08:00 | MORECARE ---
CASE MANAGEMENT DISCHARGE SUMMARY PATIENT: WESLEY GUADARRAMA UNIT: [id number] ADM DATE: 05/08/18 AGE: 57 : 56 SEX: F ROOM/BED: D.2106 AUTHOR: ARLEEN,DOC PHYSICIAN: REFERRING PHYSICIAN: NATHANIEL VAUGHN MD DATE OF SERVICE: 05/27/18 Discharge Plan Patient Name: WESLEY GUADARRAMA Facility: [facility]:[place] : 1960 Planned Disposition: Nursing Facility INDIGO Cert Anticipated Discharge Date: 05/27/18 Discharge Date: Expected LOS: 19 Initial Reviewer: [id number] Initial Review Date: 05/07/2018 Generated: 05/27/18 9:00 am Comments DCP- Discharge Planning Updated by [id number]: Juanita Pan on 05/26/18 4:[address] ORDER RECEIVED: closest living relative agreeable to hospice. CM reviewed chart and all of [employer] Operations Manager notes. Dr. Vaughn reported that he spoke to Josh Ruiz who informed him that he was patient's nephew. CM contacted Josh Ruiz and asked him if he was the patient's nephew. He verified yes. CM questioned why Charline didn't give this information to Dustin when he went to their home on May 22? SARA also stated that Charline reported that Josh was a friend and that she reported the only living relatives she knew of was a brother, a niece, and a estranged . He stated he was not sure. SARA asked several more times if he was indeed the patient's nephew and every time he answered yes. SARA then asked if he was available to come sign legals for the patient to be admitted into hospice services. He at that time told cm that he would have to talk with Charline and get back with me. CM informed him that since he was the patient's nephew that it was his decision and he would have to be the one to sign the legals to place her into hospice. He at that point told me that Charline was in a class and he couldn't come to the hospital today and he would deal with this tomorrow and talk to Dustin. supervisor poultry hatchery also tried to contact Josh to see if she could get him to come sign legals today with no answer. Juanita Pan RN, [facility] DCP- Discharge Planning Updated by [id number]: Paty Escobar on 05/23/18 7:[address] Patient Name: WESLEY GUADARRAMA Encounter No: [id number] : 1960 Primary Insurance: MEDICARE A & B Anticipated DC Date: 05-22-2018 Planned Disposition: Nursing Facility INDIGO Cert External [facility] DCP follow-up note: CM WENT TO PT'S HOME LAST EVENING, 05-22-18, MET WITH CHARLINE GARIMA IN THE HOME. CHARLINE INFORMED CM THAT THE NUMBER LISTED FOR HER IS CORRECT, THAT SHE WORKS AT THE [employer] AND WAS AT WORK WHEN CM CALLED. CHARLINE PROVIDED PHONE NUMBER CORRECTION FOR JOSH RUIZ, . CHARLINE INFORMED CM THAT SHE AND JOSH ARE PT'S FRIENDS, PT DOES LIVE WITH HER. PT DID PROVIDE A HAND WRITTEN NOTE TO CHARLINE TO TAKE CARE OF PT'S BUSINESS, BUT CHARLINE NOR JOSH HAVE POWER OF LUMBER MATERIAL HANDLER. PT HAS NO LIVING PARENTS AND DOES NOT HAVE CHILDREN. PT DOES HAVE A BROTHER IN [facility]. PT IS TO JOI GUADARRAMA, WHITE MALE, LAST KNOWN TO LIVE SOMEWHERE ON [facility] [facility] [place] [facility]. PT HAS NOT HAD CONTACT WITH HER SPOUSE IN MANY YEARS AND ONLY HIM BECAUSE "HE HAD GOOD INSURANCE". PT HAS A NIECE IN [facility]. CM WAS NOT ABLE TO OBTAIN CONTACT INFORMATION FOR PT'S BROTHER IN [facility]. CHARLINE REPORTS THAT SHE IS NOT IN FAVOR OF HOSPICE AND THAT PT HAS FOUGHT THROUGH CANCER BEFORE. CHARLINE REPORTS SHE IS NOT IN FAVOR OF TECHNICAL SUPPORT ASSISTANT SENIOR CARE CARE AND THAT SHE WOULD RATHER BRING PT HOME AND CARE FOR PT AT HOME IF POSSIBLE. CHARLINE WILL VISIT WITH PT AT HOSPITAL. CHARLINE PROVIDED LETTER FROM KAROLINE DE LEON, FOR PT AND ASKED CM TO GIVE TO PT IN [facility]. CM DELIVERED LETTER TO PT ON 05-23-18, SPOKE TO PT WHO ONLY ASKED HOW HER DOG, LUCILLE, WAS DOING. PT DID NOT COMMUNICATE FURTHER WITH CM THIS MORNING. ACCORDING TO [facility] AND [facility] REPRESENTATIVES, PT IS NOT ABLE TO SIGN HERSELF FOR FDC CARE OR HOSPICE CARE DUE TO HER MENTAL STATUS. CM UNABLE TO LOCATE NEXT OF KIN. PT IS OF NO ASSISTANCE IN ATTEMPTING TO LOCATE NEXT OF KIN. CM WAITING ADULT PROTECTIVE SERVICES EVALUATION AND POSSIBLE ASSISTANCE. PATY ESCOBAR, CASE MANAGEMENT DCP- Discharge Planning Updated by [id number]: Paty Escobar on 05/22/18 3:[address] Patient Name: WESLEY GUADARRAMA Encounter No: [id number] : 1960 Primary Insurance: MEDICARE A & B Anticipated DC Date: 05-22-2018 Planned Disposition: Nursing Facility INDIGO Cert External Planned Provider: [facility], LONG TERM CARE MEDICAID BED DCP follow-up note: CM RECEIVED HOSPICE ORDER. CM MET WITH PT IN ROOM, DISCUSSED ORDER FOR HOSPICE. PT STATES SHE THINKS SHE REMEMBERS THE DOCTOR TALKING TO HER ABOUT HAVING CANCER. CM DISCUSSED HOSPICE AVAILABILITY WELL ACCEPTANCE BY [facility]. PT IN AGREEMENT WITH HOSPICE AND HAS NO PREFERENCE FOR COMPANY PROVIDER. CM ASKED ABOUT NOTIFYING FAMILY. PT STATES SHE WOULD LIKE CM TO CALL TIM ALAS, OR JOSH RUIZ, [facility] BOYFRIEND. PT DENIES FURTHER NEEDS AT THIS TIME. CM CALLED TIM ALAS, , SEVERAL TIMES OVER ONE HOUR. THERE WAS NO ANSWER AND NO VOICE MAIL SET UP TO LEAVE A MESSAGE. CM CALLED JOSH RUIZ, FRIEND, , THE LADY THAT ANSWERED REPORTS THIS IS NOT THE NUMBER TO JOSH RUIZ AND SHE DID NOT KNOW JOSH. CM SPOKE TO PT WHO DOES NOT REMEMBER THE PHONE NUMBERS FOR CHARLINE OR JOSH. CM ASKED IF THERE WERE ANY OTHER FAMLY MEMBERS OR FRIENDS TO CALL, PT STATES NO. CM NOTIFIED [facility] OF [facility], . CM FAXED UPDATE TO [facility] VIA [employer] AT [phone]. CM CALLED [facility], , SPOKE TO KATIE WHO TOOK REFERRAL AND CM FAXED REFERRAL TO [facility] AT [phone]. CM CALLED [facility] [phone], SPOKE TO GALILEO WHO INFORMED CM THAT THE [place] APPROVAL CAN BE UPDATED TO TECHNICAL SUPPORT ASSISTANT CARE HOSPICE WITH UPDATED PAGE 1 FOR FORM 703, HOSPICE ORDER AND CHART NOTE. CM FAXED REQUIRED INFORMATION TO [facility] AT [phone]. CM WAITING UPDATE [facility] SCREENING APPROVAL. CM WAITING ADMISSION DETERMINATION FOR FDC CARE FROM [facility]. CM WAITING HOSPICE EVALUATION AND ADMISSION DETERMINATION FROM [facility]. Paty Escobar, CASE MANAGEMENT Appended by Paty Escobar on 05/22/2018 16:56 AVIATION [place]'S MATE: CM RECEIVED [facility] UPDATE DETERMINATION, PT MAY ENTER SNF FOR FDC CARE / HOSPICE. CM SPOKE TO [facility] WHO REPORTS PT NEEDS NEXT OF [facility]IN TO SIGN LEGALS FOR FDC CARE MEDICAID. CM SPOKE TO BRITNEY OF [facility] WHO INFORMED CM THAT PT IS NOT ABLE TO SIGN LEGALS HERSELF AND THEY NEED THE LEGAL NEXT OF KIN TO SIGN PAPERWORK FOR HOSPICE. CM SPOKE TO PT IN ROOM. PT WILL NOT PROVIDE FAMILY INFORMATION. PT HAS REPORTED PREVIOUSLY THAT SHE HIS BUT WILL NOT TELL CM SPOUSE'S NAME OR LAST KNOWN LOCATION. PT CONTINUES TO TELL CM TO CALL JULIA OR JOSH. PT CANNOT PROVIDE BETTER PHONE CONTACT INFORMATION FOR EITHER. KEVINS NUMBER IS NOT CORRECT, JULIA'S NUMBER DOES NOT GET ANSWERED AND THERE IS NOT VOICE MAIL SET UP. CM UNABLE TO LOCATE PHONE NUMBERS FOR EITHER PERSON REQUESTED BY PT ON THE INTERNET. CM CALLED [facility], , PROVIDED ALLEGATIONS OF PT NOT BEING ABLE TO SIGN FOR HERSELF AND HAS NO LEGAL PERSON TO ASSIST WITH ARRANGING CARE. REPORT #[id number]. PT IS NOT ABLE TO SIGN FOR FDC CARE OR HOSPICE CARE. CM UNABLE TO LOCATE NEXT OF KIN. PT IS OF NO ASSISTANCE IN ATTEMPTING TO LOCATE NEXT OF KIN. CM WAITING ADULT PROTECTIVE SERVICES EVALUATION AND POSSIBLE ASSISTANCE. PATY ESCOBAR, CASE MANAGEMENT DCP- Discharge Planning Updated by [id number]: Paty Escobar on 05/20/18 2:[address] Patient Name: WESLEY GUADARRAMA Encounter No: [id number] : 1960 Primary Insurance: MEDICARE A & B Anticipated DC Date: Planned Disposition: Alf Facility External Planned Provider: [facility], MEDICARE REHAB BED Discharge Planning Comments: FAX TO [facility] HAD FAILED ON SUNDAY AFTERNOON. CM REFAXED MAXINE SCREENING AND SUPPORTING DOCUMENTS TO [facility] AT [phone]. CM FAXED REFERRAL UPDATE TO [facility] FOR REHAB CONSIDERATION VIA [facility] AT [phone]. CM WAITING [facility] SCREENING AND DETERMINATION FOR SNF FACILITY PLACEMENT; CM WAITING ADMISSION DETERMINATION FROM [facility]. PATY ESCOBAR, CASE MANAGEMENT Appended by Paty Escobar on 05/20/2018 15:47 AVIATION [place]ATS[place]'S MATE: CM RECEIVED MAX[facility] EXEMPTION TO ADMIT TO REHAB IN SNF. CM SPOKE TO ADWOA OF [facility] WHO MET WITH PT AND WILL HAVE FACILITY CONTINUE TO SCREEN FOR ADMISSION. CM FAXED MXAINE EXEMPTION TO [facility] VIA [facility] AT [phone]. CM WAITING ADMISSION DETERMINATION FROM [facility]. PATY ESCOBAR CASE MANAGEMENT DCP- Discharge Planning Updated by [id number]: Paty Escobar on 05/17/18 3:[address] Patient Name: WESLEY GUADARRAMA Admission Status: ER Accout number: [id number] Admission Date: 05-08-2018 : 1960 Admission Diagnosis:UNSPECIFIED ABDOMINAL PAIN Attending: NATHANIEL VAUGHN Current LOS: 9 Anticipated DC Date: Planned Disposition: Alf Facility Primary Insurance: MEDICARE A & B PLANNED EXTERNAL PROVIDER: [facility], MEDICARE REHAB BED Discharge Planning Comments: CM RECEIVED ORDER FOR SNF REHAB PLACEMENT, DISCUSSED WITH PT IN ROOM. PT REQUESTS REFERRAL TO [facility] TO BE CLOSER TO HER HOME. CHOICE SIGNED. [facility] COMPLETED, SIGNATURES OBTAINED. CM FAXED MAXINE SCREENING AND SUPPORTING DOCUMENTS TO [facility] AT [phone]. CM FAXED REFERRAL TO [facility] FOR REHAB CONSIDERATION, . CM CALLED [facility], , SPOKE TO JOSH AND NOTIFIED OF REFERRAL. CM WAITING MAXINE SCREENING AND DETERMINATION FOR SNF FACILITY PLACEMENT; CM WAITING ADMISSION DETERMINATION FROM [facility]. PATY ESCOBAR, CASE MANAGEMENT Surveillance Officer: Paty Escobar DCP- Discharge Planning Updated by [id number]: Paty Escobar on 05/16/18 11:[address] Patient Name: WESLEY GUADARRAMA Admission Status: ER Accout number: [id number] Admission Date: 05-08-2018 : 1960 Admission Diagnosis:UNSPECIFIED ABDOMINAL PAIN Attending: NATHANIEL VAUGHN Current LOS: 8 Anticipated DC Date: Planned Disposition: Home with Home Health Primary Insurance: MEDICARE A & B PLANNED EXTERNAL PROVIDER: [facility] Discharge Planning Comments: CM MET WITH PT IN ROOM TO DISCUSS DISCHARGE PLANNING AND NEEDS. PT REPORTS LIVING AT HOME INDEPENDENTLY WITH CHARLINE DUMONT, AND JOSH OLSON. PT HAS NO MEDICAL EQUIPMENT AND NO PROVIDER PREFERENCE. PT REPORTS HAVING NURSING AND THERAPY WITH [facility]. CM DISCUSSED AVAILABILITY OF HOME HEALTH, REHAB SERVICES AND MEDICAL EQUIPMENT. PT THINKS HER SCHIZOPHRENIA IS BETTER NOW AND SHE DOES NOT NEED HELP FOR THAT. PT STATES THE LAST TIME SHE HAD HELP FOR SCHIZOPHRENIA, SHE WAS AT THE [facility] AND RECEIVED EXCELLENT CARE AND WOULD GO BACK THERE IF NEEDED. PT REPORTS PLAN TO GO HOME AT DISCHARGE, WOULD LIKE HER HOME HEALTH RESTARTED AND CHARLINE OR JOSH WILL PICK HER UP FOR DISCHARGE HOME. [facility] [phone], SPOKE TO OFE WHO VERIFIED PT IS ACTIVE AND ON HOSPITAL HOLD FOR [facility], NURSING AND PHYSICAL THERAPY. CM TO FOLLOW AND ASSIST NEEDED. FOR DISCHARGE HOME AND RESUPTION OF HOME HEALTH SERVICES, NOTIFY [facility] AT [phone], FAX DISCHARGE INFORMATION TO [facility] AT [phone]. Surveillance Officer: Paty Escobar DCPIA - Discharge Planning Initial Assessment Updated by [id number]: Paty Escobar on 05/23/18 10:33 am * Is the patient Alert and Oriented? Yes * How many steps to enter\\exit or inside your home? NONE * PCP DR. SIN * Pharmacy [facility] * Preadmission Environment Home with Family * ADLs Independent * Equipment None * Other Equipment NO MEDICAL EQUIPMENT PROVIDER PREFERENCE * List name and contact numbers for known caregivers / representatives who currently or will assist patient after discharge: CHARLINE PAINTING, FRIEND, JOSH RUIZ, FRIEND, * Verbal permission to speak to the caregivers and representatives has been obtained from the patient. Yes * Community resources currently utilized Home Health * Please name any agencies selected above. [facility], * Additional services required to return to the preadmission environment? No * Can the patient safely return to the preadmission environment? Yes * Has this patient been hospitalized within the prior 30 days at any hospital? Yes Coverage Notice Reviewer: [id number] - Paty Escobar Notice Issued Date-Time: 05/17/2018 15:00 Notice Type: Patient Choice Letter Notice Delivered To: Patient Relationship to Patient: Production Potter Name: Delivery Method: HAND - Hand Delivered Desire Days: Prior Verbal Notification: Recipient Understood Notice: Yes Recipient Signature: Yes Med Rec Note Co-signed by Attending: Coverage Notice Comment: ANTONI ESPINAL Reviewer: [id number] Zamzam Escobar Notice Issued Date-Time: 05/22/2018 8:25 Notice Type: IM Discharge Notice Notice Delivered To: Patient Relationship to Patient: Production Potter Name: Delivery Method: HAND - Hand Delivered Desire Days: Prior Verbal Notification: Recipient Understood Notice: Recipient Signature: Yes Med Rec Note Co-signed by Attending: Coverage Notice Comment: Last DP export: 05/26/18 4:35 pm Patient Name: WESLEY GUADARRAMA Page [id number] at 0800 All edits/amendments must be made on the electronic document DICTATION DATE: 05/27/18 0800 SUPPLIER RELATIONSHIP DIRECTOR: ABI 05/27/18 0800 RPT#: [id number] DC DATE: STATUS: ADM IN [facility] [address] [place] [address] END OF REPORT
--- NOTE | 2018-05-27 08:07 | MORECARE ---
CASE MANAGEMENT DISCHARGE SUMMARY PATIENT: WESLEY GUADARRAMA UNIT: [id number] ADM DATE: 05/08/18 AGE: 57 : 56 SEX: F ROOM/BED: D.2105 AUTHOR: ARLEEN,DOC PHYSICIAN: REFERRING PHYSICIAN: NATHANIEL VAUGHN MD DATE OF SERVICE: 05/27/18 Discharge Plan Patient Name: WESLEY GUADARRAMA Facility: [facility]:[place] : 1960 Planned Disposition: Nursing Facility INDIGO Cert Anticipated Discharge Date: 05/27/18 Discharge Date: Expected LOS: 19 Initial Reviewer: [id number] Initial Review Date: 05/07/2018 Generated: 05/27/18 9:07 am Comments DCP- Discharge Planning Updated by [id number]: Paty Escobar on 05/27/18 7:[address] Patient Name: WESLEY GUADARRAMA Encounter No: [id number] : 1960 Primary Insurance: MEDICARE A & B Anticipated DC Date: 05-27-2018 Planned Disposition: DCP follow-up note: SARA WAS ADVISED THAT PT THIS MORNING. NO FURTHER DISCHARGE NEEDS IDENTIFIED. GENEVIEVE Johnson DCP- Discharge Planning Updated by [id number]: Juanita Pan on 05/26/18 4:[address] ORDER RECEIVED: closest living relative agreeable to hospice. SARA reviewed chart and all of Genevieve Escobar notes. Dr. Vaughn reported that he spoke to Josh Ruiz who informed him that he was patient's nephew. CM contacted Josh Ruiz and asked him if he was the patient's nephew. He verified yes. SARA questioned why Charline didn't give this information to Dustin when he went to their home on May 22? SARA also stated that Charline reported that Josh was a friend and that she reported the only living relatives she knew of was a brother, a niece, and a estranged . He stated he was not sure. SARA asked several more times if he was indeed the patient's nephew and every time he answered yes. SARA then asked if he was available to come sign legals for the patient to be admitted into hospice services. He at that time told cm that he would have to talk with Charline and get back with me. CM informed him that since he was the patient's nephew that it was his decision and he would have to be the one to sign the legals to place her into hospice. He at that point told me that Charline was in a class and he couldn't come to the hospital today and he would deal with this tomorrow and talk to Dustin. loader operator supervisor also tried to contact Josh to see if she could get him to come sign legals today with no answer. Juanita Pan RN, [facility] DCP- Discharge Planning Updated by [id number]: Paty Escobar on 05/23/18 7:[address] Patient Name: WESLEY GUADARRAMA Encounter No: [id number] : 1960 Primary Insurance: MEDICARE A & B Anticipated DC Date: 05-22-2018 Planned Disposition: Nursing Facility INDIGO Cert External Planned Provider: [facility], LONG TERM CARE MEDICAID BED DCP follow-up note: CM WENT TO PT'S HOME LAST EVENING, 05-22-18, MET WITH CHARLINE GARIMA IN THE HOME. CHARLINE INFORMED CM THAT THE NUMBER LISTED FOR HER IS CORRECT, THAT SHE WORKS AT THE [employer] AND WAS AT WORK WHEN CM CALLED. CHARLINE PROVIDED PHONE NUMBER CORRECTION FOR JOSH RUIZ, . CHARLINE INFORMED CM THAT SHE AND JOSH ARE PT'S FRIENDS, PT DOES LIVE WITH HER. PT DID PROVIDE A HAND WRITTEN NOTE TO CHARLINE TO TAKE CARE OF PT'S BUSINESS, BUT CHARLINE NOR JOSH HAVE POWER OF NEURO PSYCH SALES SPECIALIST. PT HAS NO LIVING PARENTS AND DOES NOT HAVE CHILDREN. PT DOES HAVE A BROTHER IN [place] [place]. PT IS TO JOI GUADARRAMA, WHITE MALE, LAST KNOWN TO LIVE [facility] ON [facility] IN [facility]. PT HAS NOT HAD CONTACT WITH HER SPOUSE IN MANY YEARS AND ONLY HIM BECAUSE "HE HAD GOOD INSURANCE". PT HAS A NIECE IN [facility]. SARA WAS NOT ABLE TO OBTAIN CONTACT INFORMATION FOR PT'S BROTHER IN [facility]. CHARLINE REPORTS THAT SHE IS NOT IN FAVOR OF HOSPICE AND THAT PT HAS FOUGHT THROUGH CANCER BEFORE. CHARLINE REPORTS SHE IS NOT IN FAVOR OF CUSTODIAL GROUP HOME CARE AND THAT SHE WOULD RATHER BRING PT HOME AND CARE FOR PT AT HOME IF POSSIBLE. CHARLINE WILL VISIT WITH PT AT HOSPITAL. CHARLINE PROVIDED LETTER FROM KAROLINE DE LEON, FOR PT AND ASKED CM TO GIVE TO PT IN [facility]. CM DELIVERED LETTER TO PT ON 05-23-18, SPOKE TO PT WHO ONLY ASKED HOW HER DOG, LUCILLE, WAS DOING. PT DID NOT COMMUNICATE FURTHER WITH CM THIS MORNING. ACCORDING TO [facility] AND [facility] REPRESENTATIVES, PT IS NOT ABLE TO SIGN HERSELF FOR POLITICAL RESEARCH SCIENTIST CARE OR HOSPICE CARE DUE TO HER MENTAL STATUS. CM UNABLE TO LOCATE NEXT OF KIN. PT IS OF NO ASSISTANCE IN ATTEMPTING TO LOCATE NEXT OF KIN. CM WAITING ADULT PROTECTIVE SERVICES EVALUATION AND POSSIBLE ASSISTANCE. PATY ESCOBAR, CASE MANAGEMENT DCP- Discharge Planning Updated by [id number]: Paty Escobar on 05/22/18 3:[address] Patient Name: WESLEY GUADARRAMA Encounter No: [id number] : 1960 Primary Insurance: MEDICARE A & B Anticipated DC Date: 05-22-2018 Planned Disposition: Nursing Facility INDIGO Cert External Planned Provider: [facility] TERM CARE MEDICAID BED DCP follow-up note: CM RECEIVED HOSPICE ORDER. CM MET WITH PT IN ROOM, DISCUSSED ORDER FOR HOSPICE. PT STATES SHE THINKS SHE REMEMBERS THE DOCTOR TALKING TO HER ABOUT HAVING CANCER. CM DISCUSSED HOSPICE AVAILABILITY WELL ACCEPTANCE BY [facility]-TERM [facility]. PT IN AGREEMENT WITH HOSPICE AND HAS NO PREFERENCE FOR COMPANY PROVIDER. CM ASKED ABOUT NOTIFYING FAMILY. PT STATES SHE WOULD LIKE CM TO CALL TIM ALAS, OR JOSH RUIZ, HER LANDLORDS BOYFRIEND. PT DENIES FURTHER NEEDS AT THIS TIME. CM CALLED TIM ALAS, , SEVERAL TIMES OVER ONE HOUR. THERE WAS NO ANSWER AND NO VOICE MAIL SET UP TO LEAVE A MESSAGE. CM CALLED JOSH RUIZ, FRIEND, , THE LADY THAT ANSWERED REPORTS THIS IS NOT THE NUMBER TO JOSH RUIZ AND SHE DID NOT KNOW JOSH. CM SPOKE TO PT WHO DOES NOT REMEMBER THE PHONE NUMBERS FOR CHARLINE OR JOSH. CM ASKED IF THERE WERE ANY OTHER FAMLY MEMBERS OR FRIENDS TO CALL, PT STATES NO. CM NOTIFIED ADWOA OF [facility], . CM FAXED UPDATE TO [facility] VIA [facility] AT [phone]. CM CALLED [facility], , SPOKE TO KATIE WHO TOOK REFERRAL AND CM FAXED REFERRAL TO [facility] AT [phone]. CM CALLED [facility] [phone], SPOKE TO GALILEO WHO INFORMED CM THAT THE [facility] APPROVAL CAN BE UPDATED TO POLITICAL RESEARCH SCIENTIST CARE HOSPICE WITH UPDATED PAGE 1 FOR FORM 703, HOSPICE ORDER AND CHART NOTE. CM FAXED REQUIRED INFORMATION TO [facility] AT [phone]. CM WAITING UPDATE [facility] SCREENING APPROVAL. CM WAITING ADMISSION DETERMINATION FOR CUSTODIAL CARE FROM [facility]. CM WAITING HOSPICE EVALUATION AND ADMISSION DETERMINATION FROM [facility]. Paty Escobar, CASE MANAGEMENT Appended by Paty Escobar on 05/22/2018 16:56 SALES AND SERVICE ASSOCIATE: CM RECEIVED [facility] UPDATE DETERMINATION, PT MAY ENTER LONG-TERM FOR CUSTODIAL CARE / HOSPICE. CM SPOKE TO [facility] WHO REPORTS PT NEEDS NEXT OF KIN TO SIGN LEGALS FOR POLITICAL RESEARCH SCIENTIST CARE MEDICAID. CM SPOKE TO BRITNEY OF [facility] WHO INFORMED CM THAT PT IS NOT ABLE TO SIGN LEGALS HERSELF AND THEY NEED THE LEGAL NEXT OF KIN TO SIGN PAPERWORK FOR HOSPICE. CM SPOKE TO PT IN ROOM. PT WILL NOT PROVIDE FAMILY INFORMATION. PT HAS REPORTED PREVIOUSLY THAT SHE HIS BUT WILL NOT TELL CM SPOUSE'S NAME OR LAST KNOWN LOCATION. PT CONTINUES TO TELL CM TO CALL JULIA OR JOSH. PT CANNOT PROVIDE BETTER PHONE CONTACT INFORMATION FOR EITHER. KEVINS NUMBER IS NOT CORRECT, JULIA'S NUMBER DOES NOT GET ANSWERED AND THERE IS NOT VOICE MAIL SET UP. CM UNABLE TO LOCATE PHONE NUMBERS FOR EITHER PERSON REQUESTED BY PT ON THE INTERNET. CM CALLED [facility]ULT [facility]OTECT[facility] SERVICES, , PROVIDED ALLEGATIONS OF PT NOT BEING ABLE TO SIGN FOR HERSELF AND HAS NO LEGAL PERSON TO ASSIST WITH ARRANGING CARE. REPORT #[id number]. PT IS NOT ABLE TO SIGN FOR CUSTODIAL CARE OR HOSPICE CARE. CM UNABLE TO LOCATE NEXT OF KIN. PT IS OF NO ASSISTANCE IN ATTEMPTING TO LOCATE NEXT OF KIN. CM WAITING ADULT PROTECTIVE SERVICES EVALUATION AND POSSIBLE ASSISTANCE. PATY ESCOBAR, CASE MANAGEMENT DCP- Discharge Planning Updated by [id number]: Paty Escobar on 05/20/18 2:[address] Patient Name: WESLEY GUADARRAMA Encounter No: [id number] : 1960 Primary Insurance: MEDICARE A & B Anticipated DC Date: Planned Disposition: Shelter Facility External Planned Provider: [facility], MEDICARE REHAB BED Discharge Planning Comments: FAX TO [facility] HAD FAILED ON SUNDAY AFTERNOON. CM REFAXED MAXINE SCREENING AND SUPPORTING DOCUMENTS TO [facility] AT [phone]. CM FAXED REFERRAL UPDATE TO [facility] FOR REHAB CONSIDERATION VIA [employer] AT [phone]. CM WAITING [facility] SCREENING AND DETERMINATION FOR LONG-TERM FACILITY PLACEMENT; CM WAITING ADMISSION DETERMINATION FROM [facility] AND REHAB. PATY ESCOBAR, CASE MANAGEMENT Appended by Paty Escobar on 05/20/2018 15:47 SALES AND SERVICE ASSOCIATE: CM RECEIVED [facility] EXEMPTION TO ADMIT TO REHAB IN LONG-TERM. CM SPOKE TO ADWOA OF [facility] WHO MET WITH PT AND WILL HAVE FACILITY CONTINUE TO SCREEN FOR ADMISSION. CM FAXED MAXINE EXEMPTION TO [facility] VIA [employer] AT [phone]. CM WAITING ADMISSION DETERMINATION FROM [facility] GENEVIEVE JOHNSON DCP- Discharge Planning Updated by [id number]: Paty Escobar on 05/17/18 3:[address] Patient Name: WESLEY GUADARRAMA Admission Status: ER Accout number: [id number] Admission Date: 05-08-2018 : 1960 Admission Diagnosis:UNSPECIFIED ABDOMINAL PAIN Attending: NATHANIEL VAUGHN Current LOS: 9 Anticipated DC Date: Planned Disposition: Shelter Facility Primary Insurance: MEDICARE A & B PLANNED EXTERNAL PROVIDER: [facility], MEDICARE REHAB BED Discharge Planning Comments: CM RECEIVED ORDER FOR LONG-TERM REHAB PLACEMENT, DISCUSSED WITH PT IN ROOM. PT REQUESTS REFERRAL TO [facility] TO BE CLOSER TO HER HOME. CHOICE SIGNED. [facility] COMPLETED, SIGNATURES OBTAINED. CM FAXED MAXINE SCREENING AND SUPPORTING DOCUMENTS TO [facility] AT [phone]. CM FAXED REFERRAL TO [facility] FOR REHAB CONSIDERATION, . CM CALLED [facility], , SPOKE TO JOSH AND NOTIFIED OF REFERRAL. CM WAITING [facility] SCREENING AND DETERMINATION FOR LONG-TERM FACILITY PLACEMENT; CM WAITING ADMISSION DETERMINATION FROM [facility]. PATY ESCOBAR CASE MANAGEMENT Switchboard Wire Worker Helper: Paty Escobar DCP- Discharge Planning Updated by [id number]: Paty Escobar on 05/16/18 11:[address] Patient Name: WESLEY GUADARRAMA Admission Status: ER Accout number: [id number] Admission Date: 05-08-2018 : 1960 Admission Diagnosis:UNSPECIFIED ABDOMINAL PAIN Attending: NATHANIEL VAUGHN Current LOS: 8 Anticipated DC Date: Planned Disposition: Home with Home Health Primary Insurance: MEDICARE A & B PLANNED EXTERNAL PROVIDER: [facility] Discharge Planning Comments: CM MET WITH PT IN ROOM TO DISCUSS DISCHARGE PLANNING AND NEEDS. PT REPORTS LIVING AT HOME INDEPENDENTLY WITH CHARLINE DUMONT, AND LANDJOSH FORTE. PT HAS NO MEDICAL EQUIPMENT AND NO PROVIDER PREFERENCE. PT REPORTS HAVING NURSING AND THERAPY WITH [facility]. CM DISCUSSED AVAILABILITY OF HOME HEALTH, REHAB SERVICES AND MEDICAL EQUIPMENT. PT THINKS HER SCHIZOPHRENIA IS BETTER NOW AND SHE DOES NOT NEED HELP FOR THAT. PT STATES THE LAST TIME SHE HAD HELP FOR SCHIZOPHRENIA, SHE WAS AT THE [facility] AND RECEIVED EXCELLENT CARE AND WOULD GO BACK THERE IF NEEDED. PT REPORTS PLAN TO GO HOME AT DISCHARGE, WOULD LIKE HER HOME HEALTH RESTARTED AND CHARLINE OR JOSH WILL PICK HER UP FOR DISCHARGE HOME. [facility] [phone], SPOKE TO OFE WHO VERIFIED PT IS ACTIVE AND ON HOSPITAL HOLD FOR [facility], NURSING AND PHYSICAL THERAPY. CM TO FOLLOW AND ASSIST NEEDED. FOR DISCHARGE HOME AND RESUPTION OF HOME HEALTH SERVICES, NOTIFY [facility] AT [phone], FAX DISCHARGE INFORMATION TO [facility] AT [phone]. Switchboard Wire Worker Helper: Paty Escobar DCPIA - Discharge Planning Initial Assessment Updated by [id number]: Paty Escobar on 05/23/18 10:33 am * Is the patient Alert and Oriented? Yes * How many steps to enter\\exit or inside your home? NONE * PCP DR. SIN * Pharmacy [facility] * Preadmission Environment Home with Family * ADLs Independent * Equipment None * Other Equipment NO MEDICAL EQUIPMENT PROVIDER PREFERENCE * List name and contact numbers for known caregivers / representatives who currently or will assist patient after discharge: CHARLINE PAINTING, FRIEND, JOSH RUIZ, FRIEND, * Verbal permission to speak to the caregivers and representatives has been obtained from the patient. Yes * Community resources currently utilized Home Health * Please name any agencies selected above. [facility], * Additional services required to return to the preadmission environment? No * Can the patient safely return to the preadmission environment? Yes * Has this patient been hospitalized within the prior 30 days at any hospital? Yes Coverage Notice Reviewer: [id number] Zamzam Escobar Notice Issued Date-Time: 05/17/2018 15:00 Notice Type: Patient Choice Letter Notice Delivered To: Patient Relationship to Patient: Surveyor Helper Rod Name: Delivery Method: HAND - Hand Delivered Desire Days: Prior Verbal Notification: Recipient Understood Notice: Yes Recipient Signature: Yes Med Rec Note Co-signed by Attending: Coverage Notice Comment: ANTONI ESPINAL Reviewer: [id number] Zamzam Escobar Notice Issued Date-Time: 05/22/2018 8:25 Notice Type: IM Discharge Notice Notice Delivered To: Patient Relationship to Patient: Surveyor Helper Rod Name: Delivery Method: HAND - Hand Delivered Desire Days: Prior Verbal Notification: Recipient Understood Notice: Recipient Signature: Yes Med Rec Note Co-signed by Attending: Coverage Notice Comment: Last DP export: 05/27/18 7:00 am Patient Name: WESLEY GUADARRAMA Page [id number] at 0807 All edits/amendments must be made on the electronic document DICTATION DATE: 05/27/18806 SENIOR CLINICAL STUDY MANAGER: ABI 05/27/18 08 RPT#: [id number] DC DATE: STATUS: ADM IN [facility] [address] [place] [address] END OF REPORT
--- NOTE | 2018-05-27 08:38 | NUR ---
ATTEMPTED TO CALL BOTH CONTACTS ON PATIENTS CHART WITH NO ANSWER ON EITHER CALLS. PRONOUNCED @0800. COLETTE NOTIFIED @0830 AND RULED OUT DONATION R/T CANCER AND SEPSIS.
--- NOTE | 2018-05-27 11:43 | NUR ---
SPOKE WITH RONNIE CORONA AT [employer] AGRICULTURAL TECHNICAL OFFICER. NOTIFIED HIM OF THE FAMILY SITUATION AND GAVE HIM CONTACT INFORMATION. RONNIE ATTEMPTED TO REACH OUT TO FAMILY BUT WAS ALSO UNSUCCESSFUL. RONNIE PICKED UP THE BODY AT @1145. CVL AND GALVEZ WERE REMOVED AND PT WAS CLEANED. WILL SEND RONNIE THE CERTIFICATE ONCE RECEIVED FROM PHYSICIAN.
[2018-06-04 16:12] LABS: AEROBE ID Final report (())
== END 2018-05-27 11:51 | DRG 175 ==
LOC: D.ER 15:04 → D.M3 17:31 → D.EDHOLD 17:31 → OBSVTIME 17:31 → D.M3 18:25 → D.M2 05-08 15:25 → D.SDCHOLD 05-09 14:16 → D.M2 05-09 14:19 → D.SDCHOLD 05-09 14:20 → D.M2 05-09 14:22 → D.ICU 05-25 15:30 → D.M2 05-25 17:35
PROVIDERS: Emergency Medicine; Family Medicine; Internal Medicine Cardiovascular Disease; Internal Medicine Hematology & Oncology; ADMIT Internal Medicine Nephrology
PROC: 05H633Z Insertion of Infusion Device into Left Subclavian Vein, Percutaneous Approach (ICD-10-PCS; principal; 2018-05-25)
PROC: 5A09357 Assistance with Respiratory Ventilation, Less than 24 Consecutive Hours, Continuous Positive Airway Pressure (ICD-10-PCS; 2018-05-25)
DX: I26.99 Other pulmonary embolism without acute cor pulmonale (principal); I21.4 Non-ST elevation (NSTEMI) myocardial infarction; J96.01 Acute respiratory failure with hypoxia; J18.1 Lobar pneumonia, unspecified organism; I63.9 Cerebral infarction, unspecified; F17.213 Nicotine dependence, cigarettes, with withdrawal; J44.0 Chronic obstructive pulmonary disease with (acute) lower respiratory infection; N39.0 Urinary tract infection, site not specified; R91.8 Other nonspecific abnormal finding of lung field; D50.9 Iron deficiency anemia, unspecified; E11.9 Type 2 diabetes mellitus without complications; F41.9 Anxiety disorder, unspecified; F31.9 Bipolar disorder, unspecified; I25.10 Atherosclerotic heart disease of native coronary artery without angina pectoris; D18.09 Hemangioma of other sites; R40.2354 Coma scale, best motor response, localizes pain, 24 hours or more after hospital admission; R40.2144 Coma scale, eyes open, spontaneous, 24 hours or more after hospital admission; R40.2244 Coma scale, best verbal response, confused conversation, 24 hours or more after hospital admission; E83.52 Hypercalcemia